=== PATIENT | female | born 1995 | race African-American/Black ===

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

== ENCOUNTER 2017-05-19 13:24 | Inpatient (IN) | payer SELFPAY ==
[2017-05-19] MEDS ORDERED: INSULIN REG, HUMAN 100 UNIT/ML 3 ML VIAL (PYX) IV ONE ×3 (14:56→17:39)
--- NOTE | 2017-05-19 15:04 | ER Document Report ---
ED Medical Screen (RME) - General Chief Complaint: High Blood Sugar Stated Complaint: HIGH BLOOD SUGAR TRAVEL OUTSIDE OF THE [place] IN LAST 30 DAYS: No - HPI Notes: 05/19/17 15:07 22-year-old female with a history of type 1 diabetes and DKA presents today via EMS for elevated blood sugar that started approximately 2 days ago. Significant other reports that she has been vomiting, diarrhea, urinating excessively over the last 3 days. Reports fevers and chills. Significant other states that she has not eaten today. Reports recent cough. Patient is unsure if she is . Patient is unable to fully answer questions due to increased lethargy. Denies any chest pain but reports shortness of breath, abdominal pain. Patient has not been seen by her PCP. Patient states that she has been taking her insulin as directed. I have greeted and performed a rapid initial assessment of this patient. A comprehensive ED assessment and evaluation of the patient, analysis of test results and completion of medical decision making process will be conducted by an additional ED providers. 05/19/17 15:10 05/20/17 12:14 - Related Data Allergies/Adverse Reactions: No Known Allergies Allergy (Verified 05/19/17 13:25) Home Medications: Current Home Medications Insulin Glargine,Hum.rec.anlog [Lantus Solostar] 20 unit SQ QHS 05/19/17 [ History] Insulin Lispro [Humalog Kwikpen] 20 unit SQ MEALS 05/19/17 [History] Oxcarbazepine [Trileptal] 300 mg PO DAILY 05/19/17 [History] Past Medical History - Social History Chew tobacco use (# tins/day): No Frequency of alcohol use: None Drug Abuse: None Family history: Reviewed & Not Pertinent Endocrine Medical History: Reports: Hx Diabetes Mellitus Type 1 Renal/ Medical History: Denies: Hx Peritoneal Dialysis Psychiatric Medical History: Reports: Hx Bipolar Disorder, Hx Depression - Immunizations Hx Diphtheria, Pertussis, Tetanus Vaccination: No Physical Exam - Vital signs Vitals: Temp Pulse Resp BP Pulse Ox 98.4 F 133 H 20 126/97 H 99 05/19/17 13:50 05/19/17 13:50 05/19/17 13:50 05/19/17 13:50 05/19/17 13:50 Course - Vital Signs Vital signs: Temp Pulse Resp BP Pulse Ox 98.0 F 101 H 16 104/62 100 05/20/17 07:52 05/20/17 07:52 05/20/17 07:52 05/20/17 07:52 05/20/17 07:52 - Laboratory Result Diagrams: 05/20/17 04:20 05/20/17 09:33 Laboratory results interpreted by me: 05/19/17 05/19/17 05/19/17 15:41 16:00 16:30 WBC MCV MCHC RDW Plt Count Band Neutrophils % Abs Neuts (Manual) Abs Lymphs (Manual) Abs Monocytes (Manual) VBG pH 6.90 L* VBG pCO2 16.9 L* VBG HCO3 3.3 L Potassium Carbon Dioxide Glucose POC Glucose > 550 H* Phosphorus AST ALT Alkaline Phosphatase Urine Protein 30 H Urine Glucose (UA) >=500 H Urine Ketones 80 H Urine Blood LARGE H 05/19/17 05/19/17 05/19/17 16:54 16:57 16:57 WBC 25.1 H MCV 101 H MCHC 30.1 L RDW 16.4 H Plt Count 484 H Band Neutrophils % 2 L Abs Neuts (Manual) 15.3 H Abs Lymphs (Manual) 7.0 H Abs Monocytes (Manual) 2.5 H VBG pH VBG pCO2 VBG HCO3 Potassium 5.9 H Carbon Dioxide < 5 L* Glucose 688 H* POC Glucose > 550 H* Phosphorus 8.4 H AST 133 H ALT 130 H Alkaline Phosphatase 370 H Urine Protein Urine Glucose (UA) Urine Ketones Urine Blood 05/19/17 18:25 WBC MCV MCHC RDW Plt Count Band Neutrophils % Abs Neuts (Manual) Abs Lymphs (Manual) Abs Monocytes (Manual) VBG pH VBG pCO2 VBG HCO3 Potassium Carbon Dioxide Glucose POC Glucose 532 H* Phosphorus AST ALT Alkaline Phosphatase Urine Protein Urine Glucose (UA) Urine Ketones Urine Blood Doctor's Discharge - Discharge Clinical Impression: Ketoacidosis due to diabetes Condition: Serious Disposition: ADMITTED INPATIENT
--- NOTE | 2017-05-19 15:49 | RADIOLOGY REPORT (SQ) ---
EXAM DESCRIPTION: CHEST SINGLE VIEW COMPLETED DATE/TIME: 05/19/2017 3:40 pm REASON FOR STUDY: dka COMPARISON: 12/01/2016 EXAM PARAMETERS: NUMBER OF VIEWS: One view. TECHNIQUE: Single frontal radiographic view of the chest acquired. RADIATION DOSE: NA LIMITATIONS: None. FINDINGS: LUNGS AND PLEURA: No opacities, masses or pneumothorax. No pleural effusion. MEDIASTINUM AND HILAR STRUCTURES: No masses. Contour normal. HEART AND VASCULAR STRUCTURES: Heart normal in size. Normal vasculature. BONES: No acute findings. HARDWARE: None in the chest. OTHER: No other significant finding. IMPRESSION: NO ACUTE RADIOGRAPHIC FINDING IN THE CHEST. TECHNICAL DOCUMENTATION: JOB ID: [id number] 2012 [employer]- All Rights Reserved
[2017-05-19] MEDS ORDERED: INSULIN REG, HUMAN 100 UNIT/ML 3 ML VIAL (PYX) SUBCUT ONE (16:42)
--- NOTE | 2017-05-19 16:42 | ER Document Report ---
ED General - General Chief Complaint: High Blood Sugar Stated Complaint: HIGH BLOOD SUGAR Time Seen by Provider: 05/19/17 15:28 Mode of Arrival: Carried Information source: Relative Notes: Patient with known history of type 1 diabetes. Has been having excessive thirst and excessive urination. Ketones on her breath. Now today becoming more lethargic with difficulty breathing. Trying to get . Denies any recent infections. Denies any chest pain. Patient having difficulty answering questions so most history is obtained by significant other. TRAVEL OUTSIDE OF THE [place] IN LAST 30 DAYS: No - HPI Onset: Just prior to arrival Severity: Severe Associated symptoms: Nausea, Vomiting Exacerbated by: Denies - Related Data Allergies/Adverse Reactions: No Known Allergies Allergy (Verified 05/19/17 13:25) Home Medications: Current Home Medications Insulin Lispro [Humalog Kwikpen] 20 unit SQ MEALS 05/19/17 [History] Oxcarbazepine [Trileptal] 300 mg PO Q12 05/19/17 [History] Past Medical History - General Information source: Relative - Social History Smoking Status: Never Smoker Chew tobacco use (# tins/day): No Frequency of alcohol use: None Drug Abuse: None Lives with: Spouse/Significant other Family History: CVA, DM - Mother, Hypertension Patient has suicidal ideation: No Patient has homicidal ideation: No - Past Medical History Cardiac Medical History: Reports: None Pulmonary Medical History: Reports: None EENT Medical History: Reports: None Neurological Medical History: Reports: None Endocrine Medical History: Reports: Hx Diabetes Mellitus Type 1 Renal/ Medical History: Reports: None. Denies: Hx Peritoneal Dialysis Malignancy Medical History: Reports: None GI Medical History: Reports: Other - History of gastroparesis Musculoskeltal Medical History: Reports None Skin Medical History: Reports None Psychiatric Medical History: Reports: Hx Bipolar Disorder, Hx Depression - Immunizations Hx Diphtheria, Pertussis, Tetanus Vaccination: No Review of Systems - Review of Systems -: Yes ROS unobtainable due to patient's medical condition Physical Exam - Vital signs Vitals: Temp Pulse Resp BP Pulse Ox 98.4 F 133 H 20 126/97 H 99 05/19/17 13:50 05/19/17 13:50 05/19/17 13:50 05/19/17 13:50 05/19/17 13:50 Interpretation: Tachycardic, Tachypneic - General General appearance: Other - Ill-appearing In distress: Severe - HEENT Head: Normocephalic, Atraumatic Eyes: Normal Pupils: PERRL Mucous membranes: Dry - Respiratory Respiratory status: Respiratory distress, Tachypnea Chest status: Nontender Breath sounds: Normal Chest palpation: Normal - Cardiovascular Rhythm: Tachycardia Heart sounds: Normal auscultation Murmur: No - Abdominal Inspection: Normal Distension: No distension Bowel sounds: Normal Tenderness: Nontender Organomegaly: No organomegaly - Back Back: Normal, Nontender - Extremities General upper extremity: Normal inspection, Nontender, Normal color, Normal ROM , Normal temperature General lower extremity: Normal inspection, Nontender, Normal color, Normal ROM , Normal temperature, Normal weight bearing. No: Hazel's sign - Neurological Neuro grossly intact: Yes Cognition: Normal Orientation: AAOx4 [place] Coma Scale Eye Opening: Spontaneous [place] Coma Scale Verbal: Oriented [place] Coma Scale Motor: Obeys Commands [place] Coma Scale Total: 15 Speech: Normal Motor strength normal: LUE, RUE, LLE, RLE Sensory: Normal - Psychological Associated symptoms: Normal affect, Normal mood - Skin Skin Temperature: Warm Skin Moisture: Dry Skin Color: Normal Course - Re-evaluation Re-evalutation: 05/19/17 17:03 This is a very ill-appearing young female with DKA. Will begin immediate fluids , insulin, electrolyte replacement. Anticipate patient will need ICU admission. 05/19/17 17:42 Patient is a young female patient in DKA. Blood sugar over 500. Tachycardic. Getting fluids. Will start on insulin drip. Called hospitalist for admission. Hospitalist was notified at 1740. States that he will be unable to admit the patient until 1900 hrs. 05/19/17 19:00 Given to the hospitalist at 1840. Will admit to ICU at this time - Vital Signs Vital signs: Temp Pulse Resp BP Pulse Ox 98.4 F 133 H 20 126/97 H 99 05/19/17 13:50 05/19/17 13:50 05/19/17 13:50 05/19/17 13:50 05/19/17 13:50 - Laboratory Result Diagrams: 05/19/17 16:57 05/19/17 16:57 Laboratory results interpreted by me: 05/19/17 05/19/17 05/19/17 15:41 16:00 16:30 WBC MCV MCHC RDW Plt Count Band Neutrophils % Abs Neuts (Manual) Abs Lymphs (Manual) Abs Monocytes (Manual) VBG pH 6.90 L* VBG pCO2 16.9 L* VBG HCO3 3.3 L Potassium Carbon Dioxide Glucose POC Glucose > 550 H* Phosphorus AST ALT Alkaline Phosphatase Urine Protein 30 H Urine Glucose (UA) >=500 H Urine Ketones 80 H Urine Blood LARGE H 05/19/17 05/19/17 05/19/17 16:54 16:57 16:57 WBC 25.1 H MCV 101 H MCHC 30.1 L RDW 16.4 H Plt Count 484 H Band Neutrophils % 2 L Abs Neuts (Manual) 15.3 H Abs Lymphs (Manual) 7.0 H Abs Monocytes (Manual) 2.5 H VBG pH VBG pCO2 VBG HCO3 Potassium 5.9 H Carbon Dioxide < 5 L* Glucose 688 H* POC Glucose > 550 H* Phosphorus 8.4 H AST 133 H ALT 130 H Alkaline Phosphatase 370 H Urine Protein Urine Glucose (UA) Urine Ketones Urine Blood 05/19/17 18:25 WBC MCV MCHC RDW Plt Count Band Neutrophils % Abs Neuts (Manual) Abs Lymphs (Manual) Abs Monocytes (Manual) VBG pH VBG pCO2 VBG HCO3 Potassium Carbon Dioxide Glucose POC Glucose 532 H* Phosphorus AST ALT Alkaline Phosphatase Urine Protein Urine Glucose (UA) Urine Ketones Urine Blood - EKG Interpretation by Md EKG shows normal: [place], Intervals, QRS Complexes, ST-T Waves Rate: Tachycardia Critical Care Note - Critical Care Note Total time excluding time spent on procedures (mins): 60 Comments: Endocrinological emergency, electrolyte abnormalities, acidosis, DKA Discharge - Discharge Clinical Impression: Ketoacidosis due to diabetes Qualifiers: Diabetes mellitus type: type 1 Diabetes mellitus complication detail: without coma Qualified Code(s): E10.10 - Type 1 diabetes mellitus with ketoacidosis without coma Condition: Serious Disposition: ADMITTED INPATIENT Admitting Provider: Hospitalist - [place] Unit Admitted: [facility] Referrals: MARITZA KUHN MD [Primary Care Provider] - Follow up as needed
[2017-05-19 16:53] LABS: APPEARANCE,URINE SLIGHTLY-CLOUDY; BILIRUBIN,URINE NEGATIVE (NEGATIVE); COLOR,URINE YELLOW; GLUCOSE, URINE >=500 mg/dL (NEGATIVE); KETONES,URINE 80 mg/dL (NEGATIVE); LEUKOCYTE ESTERASE,URINE NEGATIVE (NEGATIVE); NITRITE,URINE NEGATIVE (NEGATIVE); PROTEIN,URINE 30 mg/dL (NEGATIVE); URINE SPECIFIC GRAVITY 1.022; UROBILINOGEN,URINE NEGATIVE mg/dL (<2.0)
[2017-05-19 17:04] LABS: URINE AMPHETAMINES SCREEN NEGATIVE; URINE BARBITURATES SCREEN NEGATIVE; URINE BENZODIAZEPINES SCREEN NEGATIVE; URINE COCAINE SCREEN NEGATIVE; URINE MARIJUANA (THC) SCREEN NEGATIVE; URINE METHADONE SCREEN NEGATIVE; URINE PHENCYCLIDINE SCREEN NEGATIVE
[2017-05-19] MEDS: NORMAL SALINE 1000 ML 1,000 ML IV PRN ×4 (17:10→18:33)
[2017-05-19 17:19] LABS: HEMATOCRIT 43.4 % (36.0-47.0); MEAN CORPUSCULAR HEMOGLOBIN 30.4 pg (27.0-33.4); MEAN CORPUSCULAR HGB CONC 30.1 g/dL (32.0-36.0); MEAN CORPUSCULAR VOLUME 101 fl (80-97); PLATELET COUNT 484 10^3/uL (150-450); RED BLOOD COUNT 4.29 10^6/uL (3.72-5.28); RED CELL DISTRIBUTION WIDTH 16.4 % (11.5-14.0); WHITE BLOOD COUNT 25.1 10^3/uL (4.0-10.5)
[2017-05-19 17:38] LABS: ALANINE AMINOTRANSFERASE 130 U/L (9-52); ALBUMIN 4.3 g/dL (3.5-5.0); ALKALINE PHOSPHATASE 370 U/L (38-126); ASPARTATE AMINO TRANSFERASE 133 U/L (14-36); BILIRUBIN,DIRECT 0.3 mg/dL (0.0-0.4); BILIRUBIN,TOTAL 0.3 mg/dL (0.2-1.3); BLOOD UREA NITROGEN 17 mg/dL (7-20); CALCIUM 9.9 mg/dL (8.4-10.2); CHLORIDE 100 mmol/L (98-107); CREATINE KINASE 42 U/L (30-135); MAGNESIUM 2.1 mg/dL (1.6-2.3); PHOSPHORUS 8.4 mg/dL (2.5-4.5); SODIUM 139.8 mmol/L (137-145)
[2017-05-19 17:42] LABS: ABSOLUTE MONOCYTES # (MANUAL) 2.5 10^3/uL (0.1-1.4); ABSOLUTE NEUTROPHILS# (MANUAL) 15.3 10^3/uL (1.7-8.2); BAND NEUTROPHILS % (MANUAL) 2 % (3-5); BASOPHILS % (MANUAL) 0 % (0-2); EOSINOPHILS % (MANUAL) 1 % (0-6); LYMPHOCYTES % (MANUAL) 28 % (13-45); MONOCYTES % (MANUAL) 10 % (3-13); SEGMENTED NEUTROPHILS % (MAN) 59 % (42-78); TOTAL CELLS COUNTED 100
[2017-05-19 17:46] LABS: ANISOCYTOSIS 1+; PLATELET COMMENT INCREASED; POIKILOCYTOSIS SLIGHT; TOXIC GRANULATION SLIGHT
[2017-05-19 18:12] LABS: POTASSIUM 5.9 mmol/L (3.6-5.0)
[2017-05-19 18:15] LABS: CARBON DIOXIDE < 5 mmol/L (22-30); GLUCOSE 688 mg/dL (75-110)
[2017-05-19] MEDS ORDERED: NORMAL SALINE 1,000 ML IV ONE (18:37)
[2017-05-19 18:43] LABS: VENOUS BLOOD BASE EXCESS -28.5 mmol/L; VENOUS BLOOD HCO3 3.3 mmol/L (20-32)
[2017-05-19 18:47] LABS: VENOUS BLOOD PH 6.9 (7.30-7.42)
[2017-05-19 18:48] LABS: VENOUS BLOOD PCO2 16.9 mmHg (35-63)
--- NOTE | 2017-05-19 18:52 | EKG REPORT ---
SEVERITY:- ABNORMAL ECG - SINUS TACHYCARDIA SMITH, CONSIDER BIATRIAL ABNORMALITIES : Confirmed by: Lucio Dalton MD 19-May-2017 18:51:12
[2017-05-19] MEDS ORDERED: ONDANSETRON HCL INJ/PF 4 MG/2 ML SDV IV PRN (19:28)
[2017-05-19] MEDS ORDERED: NORMAL SALINE 1000 ML 1,000 ML IV PRN (19:28)
[2017-05-19] MEDS ORDERED: ACETAMINOPHEN 325 MG TABLET PO PRN (19:28)
[2017-05-19] MEDS ORDERED: NORMAL SALINE 100 ML with INSULIN REGULAR, HUMAN 100 UNIT IV PRN ×2 (19:34)
[2017-05-19] MEDS ORDERED: DEXTROSE 40% GEL 15 GM TUBE PO PRN ×2 (19:34)
[2017-05-19] MEDS ORDERED: DEXTROSE 50%-WATER 25 GM/50 ML DISP.SYRIN IV PRN ×2 (19:34)
[2017-05-19] MEDS ORDERED: GLUCAGON,HUMAN RECOMB 1 MG INJ IM PRN (19:34)
[2017-05-19] MEDS ORDERED: MEDROXYPROGESTERONE ACET INJ 150 MG/1 ML VIAL IM ONE (20:15)
[2017-05-19] MEDS ORDERED: NORMAL SALINE 1000 ML 2,000 ML IV ONE (20:15)
[2017-05-19] MEDS ORDERED: FLUCONAZOLE 100 MG TABLET PO ONE (20:17)
[2017-05-19 21:46] LABS: BLOOD UREA NITROGEN 14 mg/dL (7-20); CALCIUM 8.5 mg/dL (8.4-10.2); CHLORIDE 112 mmol/L (98-107); GLUCOSE 308 mg/dL (75-110)
[2017-05-19] MEDS ORDERED: (PENDING PHARMACY ID) (Oxcarbazepine [Trileptal] 300 MG) PO SCH (22:00)
[2017-05-19 22:08] LABS: CARBON DIOXIDE < 5 mmol/L (22-30)
[2017-05-19] MEDS: POTASSI CL 20 MEQ/D5-1/2NS 1L 1,000 ML IV PRN (23:48)
[2017-05-20 01:40] LABS: BLOOD UREA NITROGEN 11 mg/dL (7-20); CALCIUM 8.2 mg/dL (8.4-10.2); CHLORIDE 112 mmol/L (98-107); GLUCOSE 152 mg/dL (75-110); POTASSIUM 4.4 mmol/L (3.6-5.0)
[2017-05-20 01:55] LABS: SODIUM 143.5 mmol/L (137-145)
[2017-05-20 01:58] LABS: ANION GAP 22 (5-19); CARBON DIOXIDE 10 mmol/L (22-30)
[2017-05-20] MEDS: OXCARBAZEPINE 150 MG TABLET PO SCH ×3 (02:47→22:19)
[2017-05-20] MEDS: METOCLOPRAMIDE HCL INJ/PF 10 MG/2 ML SDV IV SCH ×3 (02:49→14:00)
[2017-05-20] MEDS: FAMOTIDINE INJ/PF 20 MG/2 ML SDV IV SCH ×2 (02:50→09:36)
--- NOTE | 2017-05-20 03:20 | RADIOLOGY REPORT (SQ) ---
EXAM DESCRIPTION: U/S ABDOMEN LIMITED W/O DOP CLINICAL HISTORY: elevated lft COMPARISON: 07/14/2016 TECHNIQUE: Real-time sonographic images of the right upper abdomen were obtained using a curved multihertz transducer. FINDINGS: The visualized portions of the pancreas are unremarkable. The visualized portions of the aorta and IVC are unremarkable. Hepatomegaly with diffusely increased echogenicity. The common bile duct measures 0.3 cm. Hepatopedal flow in the portal vein. The gallbladder has a normal appearance. No gallstones identified. No wall thickening or pericholecystic fluid. The right kidney measures 14.3 cm in length. No hydronephrosis, solid renal mass, or shadowing calculi. IMPRESSION: 1. No gallstones. 2. Hepatomegaly with hepatic steatosis.
--- NOTE | 2017-05-20 03:53 | PDOC H&P ---
History of Present Illness Admission Date/PCP: 05/19/17 19:31 NO PCP History of Present Illness: DAVID FARIAS is a 22 year old female type I diabetic with a past medical history of gastroparesis and anxiety who presents to the emergency department with complaints of high blood sugar, nausea, vomiting, and abdominal pain. Patient reports that she has been out of her Lantus for several weeks now and has been taking 20 units of short-acting insulin prior to meals. Patient for the last 2 days has had nausea vomiting and some diarrhea. She reports her stool has been dark but denies overt melena, hematochezia. She is referred to hospital service for DKA. Past Medical History Cardiac Medical History: Reports: None Pulmonary Medical History: Reports: None EENT Medical History: Reports: None Neurological Medical History: Reports: None Endocrine Medical History: Reports: Diabetes Mellitus Type 1 Renal/ Medical History: Reports: None Malignancy Medical History: Reports: None GI Medical History: Reports: Other - History of gastroparesis Musculoskeltal Medical History: Reports: None Skin Medical History: Reports: None Psychiatric Medical History: Reports: Bipolar Disorder, Depression Past Surgical History Past Surgical History: Reports: None Social History Lives with: Spouse/Significant other Smoking Status: Never Smoker Frequency of Alcohol Use: None Hx Recreational Drug Use: No Drugs: None Hx Prescription Drug Abuse: No - Advance Directive Resuscitation Status: Full Code Surrogate healthcare decision maker:: Been more, dad Family History Family History: CVA, DM - Mother, Hypertension Parental Family History Reviewed: Yes Children Family History Reviewed: NA Sibling(s) Family History Reviewed.: Yes Medication/Allergy Home Medications: Insulin Glargine,Hum.rec.anlog [Lantus Solostar] 20 unit SQ QHS 05/19/17 Insulin Lispro [Humalog Kwikpen] 20 unit SQ MEALS 05/19/17 Oxcarbazepine [Trileptal] 300 mg PO DAILY 05/19/17 Allergies/Adverse Reactions: No Known Allergies Allergy (Verified 05/19/17 13:25) Review of Systems Constitutional: PRESENT: anorexia. ABSENT: chills, fever(s), headache(s), weight gain, weight loss Eyes: ABSENT: visual disturbances Ears: ABSENT: hearing changes Cardiovascular: ABSENT: chest pain, dyspnea on exertion, edema, orthropnea, palpitations Respiratory: ABSENT: cough, hemoptysis Gastrointestinal: PRESENT: diarrhea, melena, nausea, vomiting. ABSENT: abdominal pain, constipation, hematemesis, hematochezia Genitourinary: PRESENT: other - puritic vaginal discharge.. ABSENT: dysuria, hematuria Musculoskeletal: ABSENT: joint swelling Integumentary: ABSENT: rash, wounds Neurological: ABSENT: abnormal gait, abnormal speech, confusion, dizziness, focal weakness, syncope Psychiatric: ABSENT: anxiety, depression, homidical ideation, suicidal ideation Endocrine: ABSENT: cold intolerance, heat intolerance, polydipsia, polyuria Hematologic/Lymphatic: ABSENT: easy bleeding, easy bruising Physical Exam Vital Signs: Temp Pulse Resp BP Pulse Ox 98.4 F 133 H 20 126/97 H 99 05/19/17 13:50 05/19/17 13:50 05/19/17 13:50 05/19/17 13:50 05/19/17 13:50 General appearance: PRESENT: severe distress, well-developed, well-nourished, other - Tachypnea Head exam: PRESENT: atraumatic, normocephalic Eye exam: PRESENT: conjunctiva pink, EOMI, PERRLA. ABSENT: scleral icterus Ear exam: PRESENT: normal external ear exam Mouth exam: PRESENT: dry mucosa, tongue midline Neck exam: ABSENT: JVD, lymphadenopathy, thyromegaly, tracheal deviation Respiratory exam: PRESENT: accessory muscle use, clear to auscultation yajaira, symmetrical, tachypnea, unlabored. ABSENT: rales, rhonchi, wheezes Cardiovascular exam: PRESENT: RRR, +S1, +S2, tachycardia. ABSENT: diastolic murmur, rubs, systolic murmur Pulses: PRESENT: normal dorsalis pedis pul Vascular exam: PRESENT: normal capillary refill GI/Abdominal exam: PRESENT: normal bowel sounds, soft. ABSENT: distended, firm , guarding, mass, organolmegaly, rebound, rigid, tenderness Rectal exam: PRESENT: deferred Extremities exam: PRESENT: full ROM. ABSENT: calf tenderness, clubbing, pedal edema Neurological exam: PRESENT: alert, awake, oriented to person, oriented to place , oriented to time, oriented to situation, CN II-XII grossly intact. ABSENT: motor sensory deficit Psychiatric exam: PRESENT: appropriate affect, normal mood. ABSENT: homicidal ideation, suicidal ideation Skin exam: PRESENT: dry, intact, warm. ABSENT: cyanosis, rash Results Laboratory Results: 05/19/17 05/19/17 05/19/17 16:00 16:30 16:57 WBC 25.1 H Plt Count 484 H VBG pH 6.90 L* Sodium Potassium Chloride Carbon Dioxide Anion Gap BUN Creatinine Glucose Calcium Urine Glucose (UA) >=500 H Urine Ketones 80 H Urine Blood LARGE H 05/20/17 01:09 WBC Plt Count VBG pH Sodium 143.5 Potassium 4.4 Chloride 112 H Carbon Dioxide 10 L* Anion Gap 22 H BUN 11 Creatinine 0.56 Glucose 152 H Calcium 8.2 L Urine Glucose (UA) Urine Ketones Urine Blood Impressions: Chest X-Ray 05/19/17 14:55 IMPRESSION: NO ACUTE RADIOGRAPHIC FINDING IN THE CHEST. Assessment & Plan - Diagnosis (1) DKA (diabetic ketoacidoses) Qualifiers: Diabetes mellitus type: type 1 Diabetes mellitus complication detail: without coma Qualified Code(s): E10.10 - Type 1 diabetes mellitus with ketoacidosis without coma Is this a current diagnosis for this admission?: Yes Plan: Give patient total of 5 L normal saline bolus Then run normal saline with insulin drip at 0.1 U/kg/h Once blood sugar is below 250, transition to D5 half-normal with 20 meq of potassium chloride secondary to not using long-acting insulin Patient has been advised about the dangers of uncontrolled diabetes mellitus including kidney disease, neurologic impairment, early heart disease, loss of limb, neuropathy blindness., (2) Elevated LFTs Is this a current diagnosis for this admission?: Yes Plan: Check hepatitis panel and right upper quadrant ultrasound (3) Family planning Is this a current diagnosis for this admission?: Yes Plan: Patient is sexually active and not using contraception. She reports last menstrual period was sometime in April. Her hCG is negative. Patient has been offered Depo-Provera as a bridge until she can reestablish with a new primary care provider. Patient is advised to use barrier method of contraception. Patient is advised of the risk of conception with uncontrolled diabetes mellitus including malformation and demise and maternal risk. (4) Gastroparesis Is this a current diagnosis for this admission?: Yes Plan: Reglan every 6 (5) Melena Is this a current diagnosis for this admission?: Yes Plan: Check occult blood - Time Time Spent: 30 to 50 Minutes Medications reviewed and adjusted accordingly: Yes Anticipated discharge: Home Within: Other - upon improvement of symptomatology - Inpatient Certification Based on my medical assessment, after consideration of the patient's comorbidities, presenting symptoms, or acuity I expect that the services needed warrant INPATIENT care.: Yes I certify that my determination is in accordance with my understanding of Medicare's requirements for reasonable and necessary INPATIENT services [42 CFR 412.3e].: Yes Medical Necessity: Need For IV Fluids, Need For Continuous Telemetry Monitoring Post Hospital Care: D/C Speaking Unit Assembler Documentation
[2017-05-20] MEDS: POTASSI CL 20 MEQ/D5-1/2NS 1L 1,000 ML IV PRN ×2 (05:10→14:52)
[2017-05-20 05:47] LABS: HEMATOCRIT 33.9 % (36.0-47.0); HEMOGLOBIN 11.3 g/dL (12.0-15.5); MEAN CORPUSCULAR HGB CONC 33.2 g/dL (32.0-36.0); PLATELET COUNT 336 10^3/uL (150-450); RED BLOOD COUNT 3.76 10^6/uL (3.72-5.28); RED CELL DISTRIBUTION WIDTH 14.8 % (11.5-14.0); WHITE BLOOD COUNT 14.2 10^3/uL (4.0-10.5)
[2017-05-20 05:52] LABS: MEAN CORPUSCULAR VOLUME 90 fl (80-97)
[2017-05-20 06:06] LABS: ANION GAP 14 (5-19); BLOOD UREA NITROGEN 9 mg/dL (7-20); CARBON DIOXIDE 14 mmol/L (22-30); CHLORIDE 111 mmol/L (98-107); GLUCOSE 96 mg/dL (75-110); POTASSIUM 3.9 mmol/L (3.6-5.0); SODIUM 139.3 mmol/L (137-145)
[2017-05-20 06:13] LABS: ABSOLUTE LYMPHOCYTES# (MANUAL) 2.6 10^3/uL (0.5-4.7); ABSOLUTE MONOCYTES # (MANUAL) 1.4 10^3/uL (0.1-1.4); ABSOLUTE NEUTROPHILS# (MANUAL) 9.9 10^3/uL (1.7-8.2); BAND NEUTROPHILS % (MANUAL) 3 % (3-5); BASOPHILS % (MANUAL) 0 % (0-2); EOSINOPHILS % (MANUAL) 2 % (0-6); LYMPHOCYTES % (MANUAL) 18 % (13-45); MONOCYTES % (MANUAL) 10 % (3-13); SEGMENTED NEUTROPHILS % (MAN) 67 % (42-78); TOTAL CELLS COUNTED 100
[2017-05-20 06:14] LABS: ANISOCYTOSIS 1+; PLATELET COMMENT ADEQUATE; TOXIC GRANULATION 1+; TOXIC VACUOLATION PRESENT
[2017-05-20 07:10] LABS: CHLAM PCR DETECTED (NOT DETECT); GON PCR NOT DETECTED (NOT DETECT)
--- NOTE | 2017-05-20 08:13 | XCELERA REPORT ---
[address] [address] Lower Extremity Venous Evaluation Name: DAVID FARIAS Age: 22 yrs Gender: Female : 1995 Patient Status: Emergency Patient Location: ER Study Date: 05/19/2017 05:01 PM Procedure: Color flow and duplex imaging of the veins of the left lower extremity as well as the right Common Femoral vein. Reason For Study: pain left leg / Hx clots Ordering Physician: LUZ LUCIANO Performed By: Gogo Meng Right Sided Venous Evaluation The right common femoral vein is fully compressible. Spontaneous and phasic flow is present in the right common femoral vein. Left Sided Venous Evaluation Normal vessel filling wall to wall, compression and augmentation as well as Colour flow down to the infrageniculate veins. Interpretation Summary : LUZ LUCIANO [place]
[2017-05-20] MEDS: ENOXAPARIN SODIUM INJ 40 MG/0.4 ML DISP.SYRIN SUBCUT SCH (09:48)
[2017-05-20 10:39] LABS: ANION GAP 11 (5-19); BLOOD UREA NITROGEN 7 mg/dL (7-20); CALCIUM 7.7 mg/dL (8.4-10.2); CARBON DIOXIDE 17 mmol/L (22-30); CHLORIDE 111 mmol/L (98-107); GLUCOSE 128 mg/dL (75-110); POTASSIUM 3.9 mmol/L (3.6-5.0); SODIUM 138.5 mmol/L (137-145)
[2017-05-20 14:40] LABS: ANION GAP 14 (5-19); BLOOD UREA NITROGEN 6 mg/dL (7-20); CARBON DIOXIDE 16 mmol/L (22-30); CHLORIDE 110 mmol/L (98-107); GLUCOSE 116 mg/dL (75-110); SODIUM 139.7 mmol/L (137-145)
[2017-05-20] MEDS ORDERED: INSULIN GLARGINE,HUM.REC.ANLOG 1,000 UNIT/10 ML UNIT SUBCUT ONE (15:30)
[2017-05-20] MEDS ORDERED: LIDOCAINE 1% INJ-PF (10 MG/ML) 30 ML SDV INJ ONE (15:42)
--- NOTE | 2017-05-20 16:13 | PROGRESS NOTE E ---
Progress Note NAME: DAVID FARIAS : 1995 AGE: 22Y DATE: 05/20/2017 ROOM: 318 SUBJECTIVE: The patient is currently lying in bed. She states that she feels better today. She denies any nausea, vomiting, diarrhea. No shortness of breath, dizziness, or chest pain. No fevers, chills. The patient has been afebrile. Blood pressure has been in a good range. The patient's GAP was closed and the patient does not voice any other concerns at this time. REVIEW OF SYSTEMS: Rest of review of systems is negative. MEDICATIONS: Medications have been reviewed. OBJECTIVE: GENERAL: The patient is a thin 22-year-old -[place] female who is awake, alert. She is oriented to person, place, time, and situation. She is verbal, conversational, does not appear to be in any acute distress. VITAL SIGNS: Temperature is 98.7, pulse 104, respirations 19, blood pressure is 109/65, oxygen saturation 99% on room air. SKIN: Warm and dry. No rash. She is not diaphoretic. HEENT: Pupils equal, round, and reactive to light and accommodation. Conjunctiva is pink. There is no evidence of JVP. CARDIOVASCULAR SYSTEM: Heart is regular. There is no murmur or rub. CHEST: Clear, symmetrical, unlabored. ABDOMEN: Soft, nontender, nondistended. BACK: No CVA tenderness or sacral edema. EXTREMITIES: No clubbing, cyanosis, edema. PSYCHIATRIC: Appropriate affect. Pleasant mood. DIAGNOSTICS: Lab values are as follows: Hematology obtained on 05/20/2017: WBCs are 14.2, hemoglobin is 11.3, hematocrit is 33.9, platelet count is 336,000. Chemistry obtained on 05/20/2017: Sodium is 139, potassium 4.0, chloride is 110, carbon dioxide 16, BUN 6, creatinine is 0.51, glucose 116, calcium is 8.0. IMPRESSION AND PLAN: 1. DIABETIC KETOACIDOSIS. The patient's symptoms overall have improved. Will start the patient on a basal dose of insulin, stop the drip, and continue IV fluids. Will advance the patient's diet and follow. 2. CHLAMYDIA. Will give the patient a dose of Rocephin, azithromycin, and follow. 3. ELEVATED LFTS. THE PATIENT APPEARS TO HAVE FATTY LIVER. Will start the patient on vitamin D. 4. GASTROPARESIS. The patient is asymptomatic at this time. DISPOSITION: The patient is a FULL CODE. Pending patient's symptomatology and diagnostic findings, will re-evaluate in the a.m. Time spent on this followup including assessment, plan, physical examination, patient education, review of records is 25 minutes. DICTATING PHYSICIAN: MILADIS ENRIQUEZ NP [id number] PHY#: [id number] ID: [id number] JOB#: [id number] ACCT: [id number] cc: >
[2017-05-20] MEDS ORDERED: AZITHROMYCIN 1 GM SUSP PACKET PO ONE (16:15)
[2017-05-20] MEDS ORDERED: LIDOCAINE HCL 1% INJ (FOR 250 MG VIAL) INJ ONE (16:30)
[2017-05-20] MEDS ORDERED: CEFTRIAXONE INJ 250 MG VIAL IM ONE (16:30)
[2017-05-20 16:36] LABS: ANION GAP 15 (5-19); BLOOD UREA NITROGEN 5 mg/dL (7-20); CALCIUM 8.2 mg/dL (8.4-10.2); CARBON DIOXIDE 15 mmol/L (22-30); CHLORIDE 110 mmol/L (98-107); GLUCOSE 147 mg/dL (75-110); POTASSIUM 3.6 mmol/L (3.6-5.0)
[2017-05-20] MEDS ORDERED: INSULIN LISPRO 20 UNIT SQ SCH (17:00)
[2017-05-20] MEDS: INSULIN LISPRO 100 UNIT/ML 3 ML VIAL SUBCUT PRN ×2 (17:48→20:34)
[2017-05-20] MEDS ORDERED: INFLUENZA ADLT QUAD (36MOS+) 2017-18 VAC 0.5 ML SYR IM PRN (20:10)
[2017-05-20 20:57] LABS: BLOOD UREA NITROGEN 7 mg/dL (7-20); CALCIUM 8.6 mg/dL (8.4-10.2); CARBON DIOXIDE 11 mmol/L (22-30); CHLORIDE 107 mmol/L (98-107); GLUCOSE 315 mg/dL (75-110)
[2017-05-20 22:35] LABS: ANION GAP 21 (5-19)
[2017-05-21 00:51] LABS: ANION GAP 12 (5-19); BLOOD UREA NITROGEN 8 mg/dL (7-20); CALCIUM 8.4 mg/dL (8.4-10.2); CARBON DIOXIDE 14 mmol/L (22-30); CHLORIDE 110 mmol/L (98-107); GLUCOSE 228 mg/dL (75-110); POTASSIUM 3.6 mmol/L (3.6-5.0)
[2017-05-21 05:01] LABS: ANION GAP 13 (5-19); BLOOD UREA NITROGEN 9 mg/dL (7-20); CALCIUM 8.7 mg/dL (8.4-10.2); CARBON DIOXIDE 17 mmol/L (22-30); CHLORIDE 109 mmol/L (98-107); GLUCOSE 243 mg/dL (75-110); POTASSIUM 3.6 mmol/L (3.6-5.0); SODIUM 139.2 mmol/L (137-145)
[2017-05-21 05:40] LABS: HEPATITIS A AB IGM Negative (Negative); HEPATITIS B CORE AB IGM Negative (Negative); HEPATITS B SURFACE ANTIGEN Negative (Negative)
[2017-05-21] MEDS: INSULIN LISPRO 100 UNIT/ML 3 ML VIAL SUBCUT PRN (08:05)
[2017-05-21] MEDS: OXCARBAZEPINE 150 MG TABLET PO SCH (09:06)
[2017-05-21] MEDS: ENOXAPARIN SODIUM INJ 40 MG/0.4 ML DISP.SYRIN SUBCUT SCH (09:24)
[2017-05-21 09:29] LABS: ANION GAP 15 (5-19); BLOOD UREA NITROGEN 8 mg/dL (7-20); CALCIUM 9.1 mg/dL (8.4-10.2); CARBON DIOXIDE 18 mmol/L (22-30); CHLORIDE 107 mmol/L (98-107); GLUCOSE 284 mg/dL (75-110); POTASSIUM 3.4 mmol/L (3.6-5.0); SODIUM 139.6 mmol/L (137-145)
[2017-05-21 10:15] VITALS: BP 104/56
--- NOTE | 2017-05-21 12:14 | DISCHARGE SUMMARY E ---
Discharge Summary NAME: DAVID FARIAS : 1995 AGE: 22Y ADMITTED: 05/19/2017 DISCHARGED: 05/21/2017 CODE STATUS: FULL CODE. PRIMARY CARE PROVIDER: Dr. Torre DISCHARGE DIAGNOSES: 1. Diabetic ketoacidosis. 2. Chlamydia. 3. Hepatic steatosis. 4. Gastroparesis. DISCHARGE MEDICATIONS: 1. Lantus 20 units subcutaneous at hour of sleep. 2. Humalog 10 units subcutaneous with meals. 3. Trileptal 300 mg p.o. daily. DIET: Diabetic. ACTIVITY: As tolerated. DIAGNOSTICS: Lab values are as follow: Hematology obtained on 05/20/2017: WBCs are 14.2, hemoglobin is 11.3, hematocrit is 33.9, platelet count is 366,000. Chemistry obtained on 05/21/2017: Sodium is 139, potassium 3.4, chloride is 107, carbon dioxide 18, BUN 8, creatinine is 0.49, glucose 284, calcium is 9.1. Serology obtained on 05/20/2017: Chlamydia is positive. Gonorrhea not detected. Hepatitis antibodies are still pending. Urinalysis obtained on 05/19/2017 reveals protein 30, glucose greater than 500, ketones 80, occult blood large. Chest x-ray obtained on 05/19/2017 reveals no acute radiographic finding of the chest. Venous Doppler obtained on 05/19/2017 is not remarkable. Abdominal ultrasound obtained on 05/20/2017 reveals no gallstones with hepatomegaly. EKG obtained on 05/19/2017 reveals sinus tachycardia. HISTORY OF PRESENT ILLNESS: The patient is a 22-year-old -[place] female with a past medical history of diabetes mellitus type 1 and multiple admission for DKA. The patient has a history of gastroparesis. The patient presented to the emergency department with chief complaint of high blood sugars, nausea, vomiting, and abdominal pain. The patient states she had been out of Lantus for a couple of weeks and had been taking 20 units of short acting insulin just prior to meals. The patient stated that for the past 48 hours she had nausea, vomiting, and some diarrhea. The patient also notes vaginal discharge and denies any overt melena or hematochezia. The patient was referred to the hospitalist for admission and management for DKA. HOSPITAL COURSE: The patient was admitted to [facility]. The patient was placed on an insulin drip and the patient's gap closed relatively quickly. The patient was transitioned over to her home dose of Lantus as well as sliding scale coverage with meals. The patient was supplemented fluids and overall did very well. The patient remained afebrile. Her blood pressure has been in acceptable range. The patient's symptoms overall completely resolved. The patient was positive for chlamydia for which she has been treated for in the past. The patient was co-treated with azithromycin and Rocephin. The patient's urine culture which was clean catch also revealed gram negative rods but feel this most likely was contaminate, however, the patient was given Rocephin. The patient's symptoms completely resolved and she is ready for discharge. DISCHARGE PLANNING: The patient is advised to followup with her primary care provider within 1 week for hospital followup. Time spent on this discharge including assessment, plan, physical examination, patient education, and review or records is 20 minutes. DICTATING PHYSICIAN: MILADIS ENRIQUEZ NP [id number] PHY#: [id number] ID: [id number] JOB#: [id number] ACCT: [id number] cc:STAR CONTRERAS M.D., MICHAEL NP >
[2017-05-21 16:12] LABS: HEPATITIS C VIRUS ANTIBODY <0.1 s/co ratio (0.0-0.9)
== END 2017-05-21 10:45 | disposition home or self-care (01) | DRG 639 ==
LOC: ER 13:24 → EH 19:31 → 3W 23:00
PROVIDERS: ADMIT Family Medicine; ATTEND Family Medicine
DX: E10.10 Type 1 diabetes mellitus with ketoacidosis without coma (principal); A74.9 Chlamydial infection, unspecified; K76.0 Fatty (change of) liver, not elsewhere classified; E10.43 Type 1 diabetes mellitus with diabetic autonomic (poly)neuropathy; K31.84 Gastroparesis; Z79.4 Long term (current) use of insulin; Z79.899 Other long term (current) drug therapy
CPT/HCPCS: 36415; 71045; 76705; 80048; 80053; 80074; 80307; 81001; 81025; 82550; 82803; 82962; 83690; 83735; 84100; 84484; 84702; 85025; 87086; 87088; 87186; 87491; 87591; 93005; 93010; 93971; 96360; 99291; J0696; J1815; J2765; J3480; J3490; J7030; Q0144; S0028

== ENCOUNTER 2017-09-06 15:10 | Emergency (ER) | payer MEDICAID ==
[2017-09-06] MEDS ORDERED: IBUPROFEN 600 MG TABLET PO ONE (15:52)
--- NOTE | 2017-09-06 15:54 | ER Document Report ---
ED Extremity Problem, Lower - General Chief Complaint: Leg Pain Stated Complaint: BILAT LEG PAIN Time Seen by Provider: 09/06/17 15:44 Notes: The patient is a 22-year-old female, past medical history type 1 diabetes, presents with bilateral man pain for the past week. In addition, she is having periodic cramps that will not respond to Tylenol. Her blood sugars have been running in the 200s. She denies neuropathy, injury, calf pain or swelling , dysuria, hematuria, nausea, vomiting or ankle pain. TRAVEL OUTSIDE OF THE [place] IN LAST 30 DAYS: No - Related Data Allergies/Adverse Reactions: No Known Allergies Allergy (Verified 09/06/17 15:11) Past Medical History - General Information source: Patient - Social History Smoking Status: Never Smoker Chew tobacco use (# tins/day): No Frequency of alcohol use: None Drug Abuse: None Family History: CVA, DM - Mother, Hypertension Patient has suicidal ideation: No Patient has homicidal ideation: No Endocrine Medical History: Reports: Hx Diabetes Mellitus Type 1 Renal/ Medical History: Denies: Hx Peritoneal Dialysis Psychiatric Medical History: Reports: Hx Bipolar Disorder, Hx Depression - Immunizations Hx Diphtheria, Pertussis, Tetanus Vaccination: No Review of Systems - Review of Systems Notes: REVIEW OF SYSTEMS: CONSTITUTIONAL: -fevers, -chills EENT: -eye pain, -difficulty swallowing, -nasal congestion CARDIOVASCULAR: -chest pain, -syncope. RESPIRATORY: -cough, -SOB GASTROINTESTINAL: +lower abdominal cramping, -nausea, -vomiting, -diarrhea GENITOURINARY: -dysuria, -hematuria MUSCULOSKELETAL: +B/L man pain, -back pain, -neck pain SKIN: -rash or skin lesions. HEMATOLOGIC: -easy bruising or bleeding. LYMPHATIC: -swollen, enlarged glands. NEUROLOGICAL: -altered mental status or loss of consciousness, -headache, - neurologic symptoms PSYCHIATRIC: -anxiety, -depression. ALL OTHER SYSTEMS REVIEWED AND NEGATIVE. Physical Exam - Vital signs Vitals: Temp Pulse Resp BP Pulse Ox 98.6 F 110 H 18 120/88 H 97 09/06/17 15:23 09/06/17 15:23 09/06/17 15:23 09/06/17 15:23 09/06/17 15:23 - Notes Notes: PHYSICAL EXAMINATION: GENERAL: Well-appearing, well-nourished and in no acute distress. HEAD: Atraumatic, normocephalic. EYES: Pupils equal round and reactive to light, extraocular movements intact, sclera anicteric, conjunctiva are normal. ENT: nares patent, oropharynx clear without exudates. Moist mucous membranes. NECK: Normal range of motion, supple without lymphadenopathy LUNGS: Breath sounds clear to auscultation bilaterally and equal. No wheezes rales or rhonchi. HEART: Mild tachycardia, regular rhythm. ABDOMEN: Soft, nontender, normoactive bowel sounds. No guarding, no rebound. No masses appreciated. EXTREMITIES: Tenderness over B/L shins, no calf tenderness or swelling, Normal range of motion, no pitting or edema. No cyanosis. NEUROLOGICAL: Cranial nerves grossly intact. Normal speech, normal gait. Normal sensory and motor exams. PSYCH: Normal mood, normal affect. SKIN: Warm, Dry, normal turgor, no rashes or lesions noted. Course - Re-evaluation Re-evalutation: Patient appears very well. After Motrin, her abdominal cramping improved and she is not . Pt with hyperglycemia, ketonuria and an anion gap of 19. She admits to not taking her NovoLog for a month after using her primary care physician. She is requesting a refill of her NovoLog. Sliding scale dose is 20 units Novolog and will provide her with IV fluids and 20 units of NovoLog. She appears very well and is having no nausea or vomiting to suggest DKA today. Repeat accucheck after 2L IVF and her sliding scale Novolog is 276. Refilled her NovoLog and test strips until she can see her new primary care physician. Instructed her about continuing anti-inflammatories for her metorrhagia and following up with her Director Of Field Coordination and PMD. - Vital Signs Vital signs: Temp Pulse Resp BP Pulse Ox 98.6 F 110 H 18 120/88 H 97 09/06/17 15:23 09/06/17 15:23 09/06/17 15:23 09/06/17 15:23 09/06/17 15:23 - Laboratory Result Diagrams: 09/06/17 14:02 Laboratory results interpreted by me: 09/06/17 09/06/17 14:02 14:02 Chloride 94 L Creatinine 0.49 L Glucose 493 H* AST 53 H Alkaline Phosphatase 153 H Urine Glucose (UA) >=500 H Urine Ketones 20 H Urine Blood LARGE H Discharge - Discharge Clinical Impression: Hyperglycemia due to type 1 diabetes mellitus, Abdominal cramping Condition: Stable Disposition: HOME, SELF-CARE Additional Instructions: HYPERGLYCEMIA (HIGH BLOOD SUGAR): You have an abnormally high blood sugar. Not all high blood sugar requires long-term treatment. High blood sugar can be due to medications, , or the stress of illness. (These cases are "borderline diabetes.") If the doctor feels your high blood sugar might resolve with time, you may not require treatment now. It's very important that you follow through, to see if the blood sugar returns to normal levels. Uncontrolled high blood sugar leads to early heart disease, strokes, nerve damage, eye damage, and kidney damage. Call the physician if there is faintness, excess sleepiness, or very rapid breathing. DIABETES: You have an abnormally high blood sugar, suspicious for diabetes. Not all high blood sugar requires long-term treatment. High blood sugar can be due to medications, , or the stress of illness. (These cases are "borderline diabetes.") If the doctor feels your high blood sugar might get better with time, you may not require treatment now. It's very important that you follow through. Uncontrolled high blood sugar leads to early heart disease, strokes, nerve damage, eye damage, and kidney damage. All diabetics should follow a diet designed to control the blood sugar. Overweight diabetics should exercise regularly and lose weight. If this is not sufficient to control the blood sugar, pills or insulin shots are necessary. Younger people who develop diabetes almost always require insulin daily. Home testing of blood sugars or urine sugar is required. Diabetic teaching is available to help you figure insulin doses and monitor the blood sugar. Call the physician if there is faintness, excess sleepiness, or very rapid breathing. If hypoglycemia (LOW blood sugar) develops, symptoms are shakiness, weakness, sweating, and confusion. In this case, you should eat or drink something with sugar at once. INSULIN: Insulin is a natural hormone that lowers blood sugar. Normal blood sugar prevents complications of diabetes. For most diabetics, insulin is the best way to treat the illness. Be sure you know how to measure the insulin correctly. Insulin is measured in "units." There are three types of insulin: N (NPH or long acting), R (regular or short acting), and L (Lente or very long acting). Be sure you are using the right amount of each type. Insulin must be injected into the fat. You can use the abdomen, upper arms , and thighs. Select a different injection site every time. Wipe the site with alcohol before injecting. When first starting insulin, some adjusting of the insulin dose is necessary. Keep a record of each insulin dose and time of injection, and of the blood sugar and the time you test it. Sometimes insulin can make the blood sugar too low. If you become dizzy, sweaty, shaky, or confused, you may be having a hypoglycemic episode. Immediately use juice or some other sweet food. Call the doctor if the symptoms don't go away. FOLLOW-UP CARE: If you have been referred to a physician for follow-up care, call the physician s office for an appointment as you were instructed or within the next two days. If you experience worsening or a significant change in your symptoms, notify the physician immediately or return to the Emergency Department at any time for re-evaluation. Prescriptions: Blood Sugar Diagnostic [Accu-Chek Guide Test Strip] 1 each MC TID 30 Days strip Insulin Aspart [Novolog Insulin 100 Unit/1 ml 10 ml] 0 unit SUBCUT .SLD SCALE # 10 ml Forms: Elevated Blood Pressure Referrals: MILADIS VALLE MD [COMMUNITY BASED STAFF] - Follow up as needed
[2017-09-06 16:19] LABS: APPEARANCE,URINE CLEAR; BILIRUBIN,URINE NEGATIVE (NEGATIVE); COLOR,URINE YELLOW; GLUCOSE, URINE >=500 mg/dL (NEGATIVE); KETONES,URINE 20 mg/dL (NEGATIVE); LEUKOCYTE ESTERASE,URINE NEGATIVE (NEGATIVE); NITRITE,URINE NEGATIVE (NEGATIVE); PROTEIN,URINE NEGATIVE (NEGATIVE); URINE SPECIFIC GRAVITY 1.035; UROBILINOGEN,URINE NEGATIVE mg/dL (<2.0)
[2017-09-06 16:42] LABS: ALANINE AMINOTRANSFERASE 44 U/L (9-52); ALBUMIN 4.3 g/dL (3.5-5.0); ALKALINE PHOSPHATASE 153 U/L (38-126); ASPARTATE AMINO TRANSFERASE 53 U/L (14-36); BILIRUBIN,DIRECT 0.4 mg/dL (0.0-0.4); BILIRUBIN,TOTAL 0.4 mg/dL (0.2-1.3); BLOOD UREA NITROGEN 12 mg/dL (7-20); CALCIUM 9.9 mg/dL (8.4-10.2); CHLORIDE 94 mmol/L (98-107); CREATINE KINASE 31 U/L (30-135); POTASSIUM 4.8 mmol/L (3.6-5.0); TOTAL PROTEIN 7.5 g/dL (6.3-8.2)
[2017-09-06 16:49] LABS: ANION GAP 19 (5-19); CARBON DIOXIDE 25 mmol/L (22-30); SODIUM 137.8 mmol/L (137-145)
[2017-09-06 16:58] LABS: GLUCOSE 493 mg/dL (75-110)
[2017-09-06] MEDS ORDERED: NORMAL SALINE 1000 ML 1,000 ML IV PRN (17:01)
[2017-09-06] MEDS ORDERED: INSULIN LISPRO 100 UNIT/ML 3 ML VIAL SUBCUT ONE (17:16)
[2017-09-06 18:53] VITALS: BP 122/88
== END 2017-09-06 18:56 | disposition home or self-care (01) ==
LOC: ER 15:10
DX: E10.65 Type 1 diabetes mellitus with hyperglycemia (principal); T38.3X6A Underdosing of insulin and oral hypoglycemic [antidiabetic] drugs, initial encounter; Z91.128 Patient's intentional underdosing of medication regimen for other reason; Z91.14 Patient's other noncompliance with medication regimen; R10.30 Lower abdominal pain, unspecified; M79.662 Pain in left lower leg; M79.661 Pain in right lower leg; R25.2 Cramp and spasm; R00.0 Tachycardia, unspecified; N92.1 Excessive and frequent menstruation with irregular cycle; Z79.899 Other long term (current) drug therapy
CPT/HCPCS: 99284; 96360; 36415; 82962; 82550; 81025; 80053; 81001; J3490; J1815; J7030

== ENCOUNTER 2017-10-06 14:02 | Inpatient (IN) | payer BC, MEDICAID ==
[2017-10-06] MEDS ORDERED: NORMAL SALINE 1000 ML 1,000 ML IV PRN ×2 (14:15→18:01)
[2017-10-06] MEDS ORDERED: NORMAL SALINE 1000 ML 1,000 ML IV ONE ×2 (14:15→17:45)
[2017-10-06] MEDS ORDERED: INSULIN REG, HUMAN 100 UNIT/ML 3 ML VIAL (PYX) IV ONE ×2 (14:16→15:06)
[2017-10-06] MEDS ORDERED: DEXTROSE 50%-WATER 25 GM/50 ML DISP.SYRIN IV PRN ×2 (14:18)
[2017-10-06] MEDS ORDERED: DEXTROSE 40% GEL 15 GM TUBE PO PRN ×2 (14:18)
[2017-10-06] MEDS ORDERED: GLUCAGON,HUMAN RECOMB 1 MG INJ IM PRN (14:18)
[2017-10-06 15:52] LABS: ABSOLUTE LYMPHOCYTES (AUTO) 1.8 10^3/uL (0.5-4.7); ABSOLUTE MONOCYTES (AUTO) 0.4 10^3/uL (0.1-1.4); BASOPHILS % (AUTO) 0.5 % (0-2); EOSINOPHILS % (AUTO) 0.3 % (0-6); HEMATOCRIT 43.2 % (36.0-47.0); HEMOGLOBIN 14.3 g/dL (12.0-15.5); LYMPHOCYTES % (AUTO) 24.8 % (13-45); MEAN CORPUSCULAR HEMOGLOBIN 29.5 pg (27.0-33.4); MEAN CORPUSCULAR VOLUME 89 fl (80-97); MONOCYTES % (AUTO) 5.9 % (3-13); PLATELET COUNT 393 10^3/uL (150-450); RED BLOOD COUNT 4.84 10^6/uL (3.72-5.28); RED CELL DISTRIBUTION WIDTH 13.4 % (11.5-14.0); SEGMENTED NEUTROPHILS % (AUTO) 68.5 % (42-78); TOTAL CELLS COUNTED % (AUTO) 100 %; WHITE BLOOD COUNT 7.4 10^3/uL (4.0-10.5)
[2017-10-06 16:11] LABS: APPEARANCE,URINE SLIGHTLY-CLOUDY; BILIRUBIN,URINE NEGATIVE (NEGATIVE); COLOR,URINE YELLOW; GLUCOSE, URINE >=500 mg/dL (NEGATIVE); KETONES,URINE 80 mg/dL (NEGATIVE); LEUKOCYTE ESTERASE,URINE NEGATIVE (NEGATIVE); NITRITE,URINE NEGATIVE (NEGATIVE); PROTEIN,URINE 30 mg/dL (NEGATIVE); URINE SPECIFIC GRAVITY 1.024; UROBILINOGEN,URINE NEGATIVE mg/dL (<2.0)
[2017-10-06 16:13] LABS: ALANINE AMINOTRANSFERASE 51 U/L (9-52); ALBUMIN 4.8 g/dL (3.5-5.0); ALKALINE PHOSPHATASE 169 U/L (38-126); ASPARTATE AMINO TRANSFERASE 40 U/L (14-36); BILIRUBIN,DIRECT 0.5 mg/dL (0.0-0.4); BILIRUBIN,TOTAL 0.7 mg/dL (0.2-1.3); BLOOD UREA NITROGEN 14 mg/dL (7-20); CALCIUM 10.5 mg/dL (8.4-10.2); TOTAL PROTEIN 7.8 g/dL (6.3-8.2)
[2017-10-06 16:18] LABS: CHLORIDE 95 mmol/L (98-107); SODIUM 137.1 mmol/L (137-145)
[2017-10-06 16:21] LABS: ANION GAP 34 (5-19)
[2017-10-06 16:22] LABS: CARBON DIOXIDE 8 mmol/L (22-30); GLUCOSE 609 mg/dL (75-110); POTASSIUM 6.4 mmol/L (3.6-5.0)
[2017-10-06] MEDS ORDERED: SODIUM BICARBONATE 4.2% INJ (2.5 MEQ/5 ML) VIAL INJ ONE (16:28)
[2017-10-06] MEDS ORDERED: WATER FOR INJECTION,STERILE 1,000 ML with SODIUM BICARBONATE 100 MEQ IV PRN ×2 (17:24)
[2017-10-06] MEDS ORDERED: SODIUM BICARBONATE 8.4% INJ 50 MEQ/50 ML DISP.SYRIN IV ONE (17:30)
--- NOTE | 2017-10-06 17:48 | ER Document Report ---
ED General - General Chief Complaint: High Blood Sugar Stated Complaint: BLOOD SUGAR ISSUES Time Seen by Provider: 10/06/17 14:15 Notes: Chief complaint: Elevated blood sugar History of complain:( obtained from----patient) 22 years old female with a history of type 1 diabetes presents today with elevated blood sugar. Denies any fever chills runny nose sore throat cough dysuria or frequency. She states that today's the day that her mom and she was feeling sad and did not take her medications. Onset: Sudden Duration: Few hours Severity: Moderate to severe Quality: Dull Context: Insulin-dependent diabetes Exacerbating factor and relieving factors: Not not applicable REVIEW OF SYSTEMS: CONSTITUTIONAL : Denies fever, chills, or sweats. Denies recent illness. EENT: Denies eye, ear, throat, or mouth pain or symptoms. Denies nasal or sinus congestion or discharge. Denies throat, tongue, or mouth swelling or difficulty swallowing. CARDIOVASCULAR: Denies chest pain. Denies palpitations or racing or irregular heart beat. Denies ankle edema. RESPIRATORY: Denies cough, cold, or chest congestion. Denies shortness of breath, difficulty breathing, or wheezing. GASTROINTESTINAL: Denies distention. Denies nausea, vomiting, or diarrhea. Denies blood in vomitus, stools, or per rectum. Denies black, tarry stools. Denies constipation. GENITOURINARY: Denies difficulty urinating, painful urination, burning, frequency, blood in urine, or discharge. FEMALE GENITOURINARY: Denies vaginal bleeding, heavy or abnormal periods, irregular periods. Denies vaginal discharge or odor. MUSCULOSKELETAL: Denies back or neck pain or stiffness. Denies joint pain or swelling. SKIN: Denies rash, lesions or sores. HEMATOLOGIC : Denies easy bruising or bleeding. LYMPHATIC: Denies swollen, enlarged glands. NEUROLOGICAL: Denies confusion or altered mental status. Denies passing out or loss of consciousness. Denies dizziness or lightheadedness. Denies headache. Denies weakness or paralysis or loss of use of either side. Denies problems with gait or speech. Denies sensory loss, numbness, or tingling. Denies seizures. PSYCHIATRIC: Denies anxiety or stress. Denies depression, suicidal ideation, or homicidal ideation. ALL OTHER SYSTEMS REVIEWED AND NEGATIVE. PHYSICAL EXAMINATION: GENERAL: Well-appearing, well-nourished and in no acute distress. HEAD: Atraumatic, normocephalic. EYES: Pupils equal round and reactive to light, extraocular movements intact, conjunctiva are normal. ENT: Nares patent, oropharynx clear without exudates. Moist mucous membranes. NECK: Normal range of motion, supple without lymphadenopathy LUNGS: Breath sounds clear to auscultation bilaterally and equal. No wheezes rales or rhonchi. HEART: Regular rate and rhythm without murmurs ABDOMEN: Soft, nontender, nondistended abdomen. No guarding, no rebound. No masses appreciated. Examination of genitals-deferred Musculoskeletal: Normal range of motion, no pitting or edema. No cyanosis. NEUROLOGICAL: Cranial nerves grossly intact. Normal speech, normal gait. Normal sensory, motor exams PSYCH: Normal mood, normal affect. SKIN: Warm, Dry, normal turgor, no rashes or lesions noted. Dictation was performed using [employer] voice recognition software TRAVEL OUTSIDE OF THE [place] IN LAST 30 DAYS: No - HPI Notes: Dictated - Related Data Allergies/Adverse Reactions: No Known Allergies Allergy (Verified 10/06/17 14:38) Past Medical History - Social History Smoking Status: Never Smoker Chew tobacco use (# tins/day): No Frequency of alcohol use: None Drug Abuse: None Family History: CVA, DM - Mother, Hypertension Patient has suicidal ideation: No Patient has homicidal ideation: No Endocrine Medical History: Reports: Hx Diabetes Mellitus Type 1 Renal/ Medical History: Denies: Hx Peritoneal Dialysis Psychiatric Medical History: Reports: Hx Bipolar Disorder, Hx Depression - Immunizations Hx Diphtheria, Pertussis, Tetanus Vaccination: No Review of Systems - Review of Systems Notes: Dictated Physical Exam - Vital signs Vitals: Temp Pulse Resp BP Pulse Ox 97.8 F 114 H 14 121/69 99 10/06/17 14:07 10/06/17 14:07 10/06/17 14:07 10/06/17 14:07 10/06/17 14:07 - Notes Notes: Dictated Course - Re-evaluation Re-evalutation: 10/06/17 17:47 Given IV fluids IV insulin IV bicarb - Vital Signs Vital signs: Temp Pulse Resp BP Pulse Ox 97.8 F 114 H 14 121/69 99 10/06/17 14:07 10/06/17 14:07 10/06/17 14:07 10/06/17 14:07 10/06/17 14:07 - Laboratory Result Diagrams: 10/06/17 15:27 10/06/17 15:27 Laboratory results interpreted by me: 10/06/17 10/06/17 10/06/17 14:10 15:27 15:27 Potassium 6.4 H* Chloride 95 L Carbon Dioxide 8 L* Anion Gap 34 H Glucose 609 H* POC Glucose > 550 H* Calcium 10.5 H Direct Bilirubin 0.5 H AST 40 H Alkaline Phosphatase 169 H Urine Protein 30 H Urine Glucose (UA) >=500 H Urine Ketones 80 H Urine Blood LARGE H Critical Care Note - Critical Care Note Total time excluding time spent on procedures (mins): 60 Comments: Metabolic acidosis, diabetic ketoacidosis management Discharge - Discharge Clinical Impression: DKA (diabetic ketoacidoses) Qualifiers: Diabetes mellitus type: type 1 Diabetes mellitus complication detail: without coma Qualified Code(s): E10.10 - Type 1 diabetes mellitus with ketoacidosis without coma Condition: Serious Admitting Provider: Hospitalist Unit Admitted: IMCU
[2017-10-06] MEDS ORDERED: NORMAL SALINE 100 ML with INSULIN REGULAR, HUMAN 100 UNIT IV PRN ×2 (18:01)
--- NOTE | 2017-10-06 18:59 | HISTORY AND PHYSICAL E ---
History and Physical NAME: DAVID FARIAS : 1995 AGE: 22Y ADMITTED: 10/06/2017 ROOM: CODE STATUS: FULL CODE. PRIMARY CARE PROVIDER: Not established. CHIEF COMPLAINT: High blood sugar. HISTORY OF PRESENT ILLNESS: The patient is a 22-year-old female with a past medical history of diabetes mellitus type 1 since the age of 9. The patient presented to the Emergency Department with a chief complaint of high blood sugars. According to the patient, she never misses her insulin and takes 20 units of Lantus subcu every evening as well as 20 units of NovoLog with each meal. The patient stated that she does not check her blood sugar but does not miss her insulin. The patient has had 5 inpatient visits for diabetic ketoacidosis in the last calendar year and a couple of ED visits associated with this as well. The patient did receive a letter of termination from her primary care provider and since that time, the patient states that she has not seen anyone. Uncertain of how the patient has been getting her insulin in the interim to this. The patient denies any specific symptoms to include nausea, vomiting, diarrhea. No shortness of breath, dizziness or chest pain. The patient denies any urinary symptoms, any respiratory symptoms, citing that she feels she has been under stress. The patient's mother in June of this year of diabetes-related complications. The patient states that she feels that has been a great stressor on her life although she denies any specific symptoms of depression or suicidal/homicidal ideation. Upon presentation to the Emergency Department, the patient's potassium was found to be 6.4, bicarb was 8, glucose was 609, and with 80 ketones and the patient was referred to the hospitalist for admission and management. PAST MEDICAL HISTORY: Remarkable for: 1. Diabetes mellitus type 1. 2. Gastroparesis. 3. Hepatic steatosis. 4. Recurrent chlamydia. PAST SURGICAL HISTORY: Negative. ALLERGIES: No known drug allergies. HOME MEDICATIONS: Include: 1. Lantus 20 units subcu q. hour of sleep. 2. NovoLog 20 units subcu prandially. SOCIAL HISTORY: The patient currently resides at home with her aunt. 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 The patient's surrogate decision maker would be her father, Jeovanny and may be reached at [phone]. The patient denies any tobacco use. No history of alcohol or illicit drug use. FAMILY MEDICAL HISTORY: The patient's mother is of complications of diabetes. The patient's father is alive with hypertension. The patient had no children and does have a sibling who is healthy. REVIEW OF SYSTEMS: CONSTITUTIONAL: The patient denies any fevers, chills, dizziness, weakness and loss of consciousness. SKIN: The patient denies any diaphoresis, rashes, bruising, itching. HEENT: The patient denies any vision changes, hearing loss. No nasal drainage, sore throat. CARDIOVASCULAR: The patient denies any chest pain, heart palpitations. No orthopnea. CHEST: The patient denies any cough, sputum production or hemoptysis. GENITOURINARY: The patient denies any hematuria, pyuria or dysuria. No vaginal discharge or malodorous discharge. GASTROINTESTINAL: Denies any nausea, vomiting, diarrhea, abdominal pain, bloody hematemesis. No constipation, melena. No hematochezia. MUSCULOSKELETAL: Denies any acute or chronic joint pain. NEUROLOGICAL: No seizures, tremors, loss of consciousness. HEMATOLOGICAL: Denies any cate bleeding, easy bruising. ENDOCRINE: Denies any recent weight changes. Assumes her blood sugars have been high. PSYCHIATRIC: Denies any suicidal or homicidal ideation. The rest of the review of the other organ systems is negative. PHYSICAL EXAMINATION: GENERAL: The patient is a well-developed, reasonably-nourished, 22-year-old female who is awake, alert, and oriented to person, place, time, and situation. She is verbal, conversational, ambulatory, does not appear to be in any acute distress. VITAL SIGNS: As follows: Temperature is 98.4, pulse 102, respirations 16, blood pressure 113/71, oxygen saturation is 100% on room air. SKIN: Warm and dry. No rash. Not diaphoretic. HEENT: Pupils equal, round, reactive to light and accommodation. Conjunctiva is pink. Sclera is nonicteric. No mouth lesions. Tongue is midline. NECK: Supple. No JVD. No palpable lymphadenopathy or thyromegaly. CARDIOVASCULAR: Heart is regular. There is no murmur or rub. CHEST: Clear, symmetrical, unlabored. ABDOMEN: Soft, nontender, nondistended. Bowel sounds are present. No palpable organomegaly. BACK: No CVA tenderness, sacral edema. EXTREMITIES: No clubbing, cyanosis, edema or peripheral signs of embolization. Pedal pulses +1 noted bilaterally. PSYCHIATRIC: Denies any suicidal/homicidal ideation. DIAGNOSTICS: Lab values are as follows: Hematology obtained on 10/06/2017; WBCs are 7.4; hemoglobin is 14.3; hematocrit is 43.2; platelet count is 393,000. Chemistry obtained on 10/06/2017: Sodium is 137, potassium 6.4, chloride is 95, carbon dioxide 8, BUN 34, creatinine is 0.62, glucose 609, calcium is 10.5, bilirubin 0.7, AST 40, ALT is 51, alkaline phosphatase 169, total protein 7.8, albumin 4.8. IMPRESSION AND PLAN: 1. Diabetic ketoacidosis. Will admit the patient to PCU as she is otherwise hemodynamically stable. Will have the patient receive a total of 2 L bolus and then start on 200 mL/hr. Nursing has been instructed to contact once the patient's blood glucose drops below 250. Place the patient on an insulin drip and transition to dextrose supplement once less than 250 and follow. 2. Diabetes mellitus type 1. Patient most likely has an element of noncompliance given the actual amount of admissions associated with this. The patient would benefit from endocrinology. Now that the patient has Medicaid again, hopefully, can get her established. The patient may benefit with better control with an insulin pump. 3. History of diabetic gastroparesis. The patient denies any current symptoms at this time. 4. Diabetic neuropathy. We will start the patient on a low dose of Neurontin. DISPOSITION: The patient is a FULL CODE. Pending patient's symptomatology and diagnostic findings, will re-evaluate as needed. Will admit the patient to inpatient IMCU as the patient's expected length of stay should surpass 2 midnights. TIME SPENT: On this admission including assessment, plan, physical examination, patient education, review of previous records and family meeting is 35 minutes. DICTATING PHYSICIAN: MILADIS ENRIQUEZ NP [id number] PHY#: [id number] ID: [id number] JOB#: [id number] ACCT: [id number] cc:MILADIS ENRIQUEZ NP NO Lashawn CRAIG
[2017-10-06 20:26] LABS: BLOOD UREA NITROGEN 11 mg/dL (7-20); CALCIUM 9.5 mg/dL (8.4-10.2); GLUCOSE 262 mg/dL (75-110)
[2017-10-06 20:32] LABS: CARBON DIOXIDE 12 mmol/L (22-30); CHLORIDE 106 mmol/L (98-107); SODIUM 143.4 mmol/L (137-145)
[2017-10-06 20:35] LABS: ANION GAP 25 (5-19); POTASSIUM 4.7 mmol/L (3.6-5.0)
[2017-10-06] MEDS: POTASSI CL 20 MEQ/D5-1/2NS 1L 1,000 ML IV PRN (21:04)
[2017-10-06] MEDS: ACETAMINOPHEN 325 MG TABLET PO PRN (21:47)
[2017-10-06] MEDS: HEPARIN SOD (PORCINE) 5,000 UNIT/ML 1 ML SYRINGE SUBCUT SCH (21:49)
[2017-10-06] MEDS ORDERED: GABAPENTIN 100 MG CAPSULE PO SCH (22:00)
[2017-10-07] MEDS: POTASSI CL 20 MEQ/D5-1/2NS 1L 1,000 ML IV PRN ×3 (01:48→12:26)
[2017-10-07] MEDS ORDERED: IBUPROFEN 400 MG TABLET PO ONE (02:15)
[2017-10-07 02:17] LABS: ANION GAP 18 (5-19); BLOOD UREA NITROGEN 9 mg/dL (7-20); CALCIUM 9.1 mg/dL (8.4-10.2); CARBON DIOXIDE 17 mmol/L (22-30); CHLORIDE 107 mmol/L (98-107); GLUCOSE 240 mg/dL (75-110); POTASSIUM 4.5 mmol/L (3.6-5.0)
[2017-10-07] MEDS: HEPARIN SOD (PORCINE) 5,000 UNIT/ML 1 ML SYRINGE SUBCUT SCH ×3 (05:11→22:13)
[2017-10-07 08:53] LABS: ANION GAP 14 (5-19); BLOOD UREA NITROGEN 6 mg/dL (7-20); CALCIUM 9.1 mg/dL (8.4-10.2); CARBON DIOXIDE 19 mmol/L (22-30); CHLORIDE 106 mmol/L (98-107); GLUCOSE 228 mg/dL (75-110); POTASSIUM 4.1 mmol/L (3.6-5.0); SODIUM 139.4 mmol/L (137-145)
[2017-10-07] MEDS: IBUPROFEN 600 MG TABLET PO PRN ×2 (10:49→17:35)
[2017-10-07] MEDS: GABAPENTIN 100 MG CAPSULE PO SCH ×2 (14:20→22:07)
[2017-10-07] MEDS ORDERED: NORMAL SALINE 1000 ML 1,000 ML IV PRN (16:05)
--- NOTE | 2017-10-07 16:19 | PDOC PROGRESS REPORT ---
Subjective Progress Note for:: 10/07/17 Subjective:: Patient stated she was feeling better this morning. She was starting to feel hungry. No confusion. She slept well. Abdominal pain minimal. Her legs are hurting as they have been for quite some time now. No chest pain or difficulty breathing. She mentioned that her mother of diabetes related complications several times during her visit. She also feels that she tries to eat well and manage her diabetes and is not quite sure why this keeps happening. Reason For Visit: DKA Physical Exam Vital Signs: Temp Pulse Resp BP Pulse Ox 98.2 F 121 H 12 106/70 98 10/07/17 10:56 10/07/17 07:00 10/07/17 12:42 10/07/17 12:42 10/07/17 12:42 Intake & Output 10/06/17 10/07/17 10/08/17 06:59 06:59 06:59 Intake Total 1503 Output Total 200 Balance 1303 Weight 50.5 kg General appearance: PRESENT: no acute distress, cooperative Head exam: PRESENT: atraumatic, normocephalic Eye exam: ABSENT: conjunctival injection, scleral icterus Mouth exam: PRESENT: moist, tongue midline Neck exam: PRESENT: full ROM Respiratory exam: PRESENT: clear to auscultation yajaira, unlabored. ABSENT: rales , rhonchi, wheezes Cardiovascular exam: PRESENT: RRR. ABSENT: systolic murmur GI/Abdominal exam: PRESENT: normal bowel sounds, soft. ABSENT: distended, tenderness Extremities exam: ABSENT: pedal edema Neurological exam: PRESENT: alert, awake, oriented to person, oriented to place , oriented to situation Psychiatric exam: PRESENT: appropriate affect Skin exam: PRESENT: dry, intact, warm Results Laboratory Results: 10/06/17 10/07/17 10/07/17 19:50 01:56 01:56 Sodium 143.4 142.0 Potassium 4.7 D 4.5 Chloride 106 107 Carbon Dioxide 12 L 17 L Anion Gap 25 H 18 BUN 11 9 Creatinine 0.51 L 0.42 L Est GFR ( Amer) > 60 > 60 Est GFR (Non-Af Amer) > 60 > 60 Glucose 262 H 240 H Calcium 9.5 9.1 Magnesium 2.0 10/07/17 08:10 Sodium 139.4 Potassium 4.1 Chloride 106 Carbon Dioxide 19 L Anion Gap 14 BUN 6 L Creatinine 0.43 L Est GFR ( Amer) > 60 Est GFR (Non-Af Amer) > 60 Glucose 228 H Calcium 9.1 Magnesium Assessment & Plan - Diagnosis (1) DKA (diabetic ketoacidoses) Qualifiers: Diabetes mellitus type: type 1 Diabetes mellitus complication detail: without coma Qualified Code(s): E10.10 - Type 1 diabetes mellitus with ketoacidosis without coma Is this a current diagnosis for this admission?: Yes Plan: She has type 1 diabetes with the complications of recurrent DKA, diabetic gastroparesis and neuropathy. With fluid resuscitation and insulin her gap has now posed. Her bicarb is almost normal. She is now eating and drinking and off the drip. We have started long-acting insulin and also bolus insulin before meals and at bedtime. We have ordered diabetic dietary teaching for patient. (2) Neuropathy Is this a current diagnosis for this admission?: Yes Plan: Patient is on gabapentin 100 mg p.o. nightly. Secondary to numbness and pain in her legs I have increased her gabapentin to 100 mg p.o. 3 times daily. (3) Gastroparesis Is this a current diagnosis for this admission?: Yes Plan: At this point she is eating and drinking without difficulty. Will monitor for symptoms of gastroparesis. - Time Time Spent with patient: 25-34 minutes Medications reviewed and adjusted accordingly: Yes Anticipated discharge: Home - Inpatient Certification Based on my medical assessment, after consideration of the patient's comorbidities, presenting symptoms, or acuity I expect that the services needed warrant INPATIENT care.: Yes I certify that my determination is in accordance with my understanding of Medicare's requirements for reasonable and necessary INPATIENT services [42 CFR 412.3e].: Yes Medical Necessity: Need For IV Fluids, Risk of Complication if Not Cared For in Hospital - Patient also is on Trileptal, I will speak with her about why she is on this medication, seizure disorder or otherwise. It has been restarted.
[2017-10-07 17:02] LABS: ANION GAP 13 (5-19); BLOOD UREA NITROGEN 4 mg/dL (7-20); CALCIUM 9.3 mg/dL (8.4-10.2); CARBON DIOXIDE 21 mmol/L (22-30); CHLORIDE 106 mmol/L (98-107); GLUCOSE 100 mg/dL (75-110); SODIUM 140.2 mmol/L (137-145)
[2017-10-07] MEDS: INSULIN LISPRO 100 UNIT/ML 3 ML VIAL SUBCUT SCH (17:10)
[2017-10-07] MEDS: INSULIN LISPRO 100 UNIT/ML 3 ML VIAL SUBCUT PRN ×2 (17:10→22:12)
[2017-10-07] MEDS ORDERED: NORMAL SALINE 1000 ML 1,000 ML IV ONE (17:45)
[2017-10-07] MEDS ORDERED: INSULIN GLARGINE,HUM.REC.ANLOG 300 UNIT/3 ML INSULN.PEN SUBCUT SCH (22:00)
[2017-10-07] MEDS ORDERED: INSULIN GLARGINE,HUM.REC.ANLOG 1,000 UNIT/10 ML UNIT SUBCUT ONE (22:04)
[2017-10-07] MEDS: ACETAMINOPHEN 325 MG TABLET PO PRN (22:07)
[2017-10-08] MEDS: GABAPENTIN 100 MG CAPSULE PO SCH ×3 (05:52→21:08)
[2017-10-08] MEDS: IBUPROFEN 600 MG TABLET PO PRN ×2 (05:53→16:03)
[2017-10-08] MEDS: HEPARIN SOD (PORCINE) 5,000 UNIT/ML 1 ML SYRINGE SUBCUT SCH ×3 (05:54→21:09)
[2017-10-08 06:15] LABS: HEMATOCRIT 36.4 % (36.0-47.0); HEMOGLOBIN 12.3 g/dL (12.0-15.5); MEAN CORPUSCULAR HEMOGLOBIN 29.2 pg (27.0-33.4); MEAN CORPUSCULAR HGB CONC 33.7 g/dL (32.0-36.0); MEAN CORPUSCULAR VOLUME 87 fl (80-97); PLATELET COUNT 275 10^3/uL (150-450); RED CELL DISTRIBUTION WIDTH 12.8 % (11.5-14.0); WHITE BLOOD COUNT 5.8 10^3/uL (4.0-10.5)
[2017-10-08 06:37] LABS: ANION GAP 10 (5-19); BLOOD UREA NITROGEN 7 mg/dL (7-20); CALCIUM 9.3 mg/dL (8.4-10.2); CARBON DIOXIDE 22 mmol/L (22-30); CHLORIDE 102 mmol/L (98-107); GLUCOSE 337 mg/dL (75-110); POTASSIUM 4.6 mmol/L (3.6-5.0); SODIUM 134.4 mmol/L (137-145)
[2017-10-08] MEDS: INSULIN LISPRO 100 UNIT/ML 3 ML VIAL SUBCUT SCH ×3 (09:28→17:48)
[2017-10-08] MEDS: INSULIN LISPRO 100 UNIT/ML 3 ML VIAL SUBCUT PRN ×4 (09:28→22:30)
[2017-10-08] MEDS: ACETAMINOPHEN 325 MG TABLET PO PRN ×2 (09:37→21:07)
[2017-10-08] MEDS ORDERED: (PENDING PHARMACY ID) (Oxcarbazepine [Trileptal] 300 MG) PO SCH (10:00)
[2017-10-08] MEDS ORDERED: OXCARBAZEPINE 150 MG TABLET PO SCH (10:00)
--- NOTE | 2017-10-08 17:09 | PDOC PROGRESS REPORT ---
Subjective Progress Note for:: 10/08/17 Subjective:: Patient is starting to feel better. She realizes her sugars are still out of control. She and I discussed the importance of carb counting. She also told me about the fact that she has Medicaid only for several more months until she turns 23 and then she will lose her health insurance. She has a job that will not allow her, financially, to purchase health insurance. So we are strategizing on ways to get her the care she needs in this setting. For now she states that she is not having chest pain or difficulty breathing. No nausea vomiting diarrhea or constipation. No abdominal pain. Her bilateral legs are starting to feel somewhat better. We discussed at length neuropathy, her mother with complications related to diabetes so she is aware of complications that can arise from this illness. Patient has been persistently tachycardic though she does not know and she is tachycardic. She does not know of any history of tachycardia, does not know if this is her baseline. No palpitations. Reason For Visit: DKA Physical Exam Vital Signs: Temp Pulse Resp BP Pulse Ox 98.6 F 126 H 18 113/58 L 100 10/08/17 15:40 10/08/17 15:40 10/08/17 15:40 10/08/17 15:40 10/08/17 15:40 Intake & Output 10/07/17 10/08/17 10/09/17 06:59 06:59 06:59 Intake Total 1503 1897 10 Output Total 200 Balance 1303 1897 10 Weight 50.5 kg 52.6 kg General appearance: PRESENT: no acute distress, cooperative, thin Head exam: PRESENT: atraumatic, normocephalic Eye exam: ABSENT: conjunctival injection, scleral icterus Ear exam: PRESENT: normal external ear exam Mouth exam: PRESENT: moist, neck supple Respiratory exam: PRESENT: clear to auscultation yajaira, unlabored. ABSENT: rales , rhonchi, wheezes Cardiovascular exam: PRESENT: tachycardia. ABSENT: systolic murmur Pulses: PRESENT: normal radial pulses GI/Abdominal exam: PRESENT: normal bowel sounds, soft. ABSENT: distended, guarding, tenderness Extremities exam: ABSENT: pedal edema, tenderness Neurological exam: PRESENT: alert, awake, oriented to person, oriented to place , oriented to situation, CN II-XII grossly intact Psychiatric exam: PRESENT: appropriate affect. ABSENT: anxious Skin exam: PRESENT: dry, intact, warm Results Laboratory Results: 10/08/17 05:33 10/08/17 05:33 10/07/17 10/08/17 10/08/17 14:48 05:33 05:33 WBC 5.8 RBC 4.20 Hgb 12.3 Hct 36.4 MCV 87 MCH 29.2 MCHC 33.7 RDW 12.8 Plt Count 275 Sodium 140.2 134.4 L Potassium 4.0 4.6 Chloride 106 102 Carbon Dioxide 21 L 22 Anion Gap 13 10 BUN 4 L 7 Creatinine 0.37 L 0.43 L Est GFR ( Amer) > 60 > 60 Est GFR (Non-Af Amer) > 60 > 60 Glucose 100 337 H Calcium 9.3 9.3 Assessment & Plan - Diagnosis (1) DKA (diabetic ketoacidoses) Qualifiers: Diabetes mellitus type: type 1 Diabetes mellitus complication detail: without coma Qualified Code(s): E10.10 - Type 1 diabetes mellitus with ketoacidosis without coma Is this a current diagnosis for this admission?: Yes Plan: Anion gap is closed. Bicarb is normal. Patient is doing well on glargine, lispro bolus and sliding scale with meals. CBGs are not sufficiently controlled and we will continue to work on insulin titration for a safe discharge. She would like to be referred to an wastewater manager for discharge, while she has Medicaid. Medicaid will end in January when she turns 23. She used to be on an insulin pump when she had insurance as a child, she saw a pediatric wastewater manager. (2) Neuropathy Is this a current diagnosis for this admission?: Yes Plan: Secondary to diabetes likely. She is newly on gabapentin 100 mg p.o. 3 times daily. She is using Tylenol and Motrin as needed. She states that her leg pain is improving. She and I discussed the possible complications of uncontrolled diabetes. She states that when she was younger she was not so concerned about her illness but now as she is getting older and as she saw her mother with complications related to diabetes she understands the importance of good diabetic control and would like as much help as possible in achieving that. (3) Gastroparesis Is this a current diagnosis for this admission?: Yes Plan: Has had this as a complication of diabetes in the past. For now she is eating and drinking without difficulty. (4) Poverty Is this a current diagnosis for this admission?: Yes Plan: Patient is unable to afford health insurance and will lose her Medicaid in January when she turns 23. She is aware of the free clinic and I encouraged her to register to become a patient there. While she has Medicaid we will refer her to an adult wastewater manager so that hopefully she can get her diabetes under better control. We also discussed the importance of following up with a primary care physician and for her well woman checks as well. She states she was recently diagnosed with Trichomonas and BV but those have resolved. She does not think she has had the HPV vaccine and I recommended that she needs that. (5) Depression Is this a current diagnosis for this admission?: Yes Plan: She states that her primary care doctor, who she really does not like because of communication problems, diagnosed her with a bipolar depression quite sure that she really has that. She states that since her mother earlier this year she has been very sad. She was initially, as an outpatient, placed on a medication for bipolar depression which made her very somnolent. She states that that was changed to Trileptal which has helped her sleep better when she takes it at night and has helped some with anxiety related to her mother's . Continue the Trileptal for now and will continue to encourage her to seek a new primary care doctor. - Time Time Spent with patient: 25-34 minutes Medications reviewed and adjusted accordingly: Yes - Inpatient Certification Based on my medical assessment, after consideration of the patient's comorbidities, presenting symptoms, or acuity I expect that the services needed warrant INPATIENT care.: Yes I certify that my determination is in accordance with my understanding of Medicare's requirements for reasonable and necessary INPATIENT services [42 CFR 412.3e].: Yes Medical Necessity: Risk of Complication if Not Cared For in Hospital
[2017-10-08] MEDS: INSULIN GLARGINE,HUM.REC.ANLOG 300 UNIT/3 ML INSULN.PEN SUBCUT SCH (22:30)
[2017-10-09] MEDS: HEPARIN SOD (PORCINE) 5,000 UNIT/ML 1 ML SYRINGE SUBCUT SCH ×3 (05:27→21:10)
[2017-10-09] MEDS: GABAPENTIN 100 MG CAPSULE PO SCH (05:38)
[2017-10-09] MEDS: IBUPROFEN 600 MG TABLET PO PRN (05:38)
[2017-10-09] MEDS ORDERED: GABAPENTIN 300 MG CAPSULE PO ONE (06:45)
[2017-10-09] MEDS: INSULIN LISPRO 100 UNIT/ML 3 ML VIAL SUBCUT SCH ×3 (07:50→17:01)
[2017-10-09] MEDS: INSULIN LISPRO 100 UNIT/ML 3 ML VIAL SUBCUT PRN ×3 (07:50→21:18)
[2017-10-09] MEDS: OXYCODONE HCL IR 5 MG TABLET PO PRN (14:15)
--- NOTE | 2017-10-09 15:49 | PDOC PROGRESS REPORT ---
Subjective Progress Note for:: 10/09/17 Subjective:: She is having very significant leg pain today. She said her feet are burning and have pins and needles man. Her legs however are feeling better. She thinks that after she receives the gabapentin her discomfort improves. Ibuprofen and Tylenol are not helping. She is eating and drinking well now. She is not having chest pain or difficulty breathing. No nausea vomiting or abdominal pain. Is satisfied with her glucose control and her glucose this morning was 100. Reason For Visit: DKA Physical Exam Vital Signs: Temp Pulse Resp BP Pulse Ox 98.3 F 113 H 18 111/68 99 10/09/17 11:49 10/09/17 11:49 10/09/17 11:49 10/09/17 11:49 10/09/17 11:49 Intake & Output 10/08/17 10/09/17 10/10/17 06:59 06:59 06:59 Intake Total 1897 1197 Balance 1897 1197 Weight 52.6 kg 51.8 kg General appearance: PRESENT: mild distress Head exam: PRESENT: atraumatic, normocephalic Eye exam: ABSENT: conjunctival injection, scleral icterus Mouth exam: PRESENT: moist, neck supple, tongue midline Respiratory exam: PRESENT: clear to auscultation yajaira, unlabored. ABSENT: rales , rhonchi, wheezes Cardiovascular exam: PRESENT: tachycardia. ABSENT: systolic murmur Pulses: PRESENT: normal radial pulses, normal dorsalis pedis pul GI/Abdominal exam: PRESENT: normal bowel sounds, soft. ABSENT: distended, guarding, tenderness Musculoskeletal exam: PRESENT: ambulatory, normal inspection Neurological exam: PRESENT: alert, awake, oriented to person, oriented to place , oriented to situation, CN II-XII grossly intact, other - Decreased sensation over the bilateral feet. Psychiatric exam: PRESENT: appropriate affect. ABSENT: anxious Skin exam: PRESENT: dry, intact, warm Results Laboratory Results: 10/08/17 05:33 10/08/17 05:33 Assessment & Plan - Diagnosis (1) DKA (diabetic ketoacidoses) Qualifiers: Diabetes mellitus type: type 1 Diabetes mellitus complication detail: without coma Qualified Code(s): E10.10 - Type 1 diabetes mellitus with ketoacidosis without coma Is this a current diagnosis for this admission?: Yes Plan: DKA has resolved. We are now working on good glucose control. We will decrease her meal time lispro and continue sliding scale before meals and at bedtime. Continue long-acting insulin. Will refer patient to endocrinology on discharge. (2) Neuropathy Is this a current diagnosis for this admission?: Yes Plan: Patient's neuropathy seems fairly severe. We will continue gabapentin. She will need to be uptitrated as an outpatient. I have added a very low-dose of oxycodone 2.5 mg p.o. every 6 hours as needed severe pain. (3) Gastroparesis Is this a current diagnosis for this admission?: Yes Plan: Not having this problem currently. Will continue to monitor. Patient will need endocrinology and good primary care as an outpatient. (4) Depression Is this a current diagnosis for this admission?: Yes Plan: Patient is stable. We have changed her Trileptal to evening and she is satisfied with this plan. - Time Time Spent with patient: 25-34 minutes Medications reviewed and adjusted accordingly: Yes - Inpatient Certification Based on my medical assessment, after consideration of the patient's comorbidities, presenting symptoms, or acuity I expect that the services needed warrant INPATIENT care.: Yes I certify that my determination is in accordance with my understanding of Medicare's requirements for reasonable and necessary INPATIENT services [42 CFR 412.3e].: Yes Medical Necessity: Need for Pain Control
[2017-10-09] MEDS: INSULIN GLARGINE,HUM.REC.ANLOG 300 UNIT/3 ML INSULN.PEN SUBCUT SCH (21:18)
[2017-10-09] MEDS: GABAPENTIN 300 MG CAPSULE PO SCH (21:19)
[2017-10-09] MEDS ORDERED: OXCARBAZEPINE 150 MG TABLET PO SCH (22:00)
[2017-10-10] MEDS: ACETAMINOPHEN 325 MG TABLET PO PRN (05:53)
[2017-10-10] MEDS: HEPARIN SOD (PORCINE) 5,000 UNIT/ML 1 ML SYRINGE SUBCUT SCH (05:55)
[2017-10-10 07:00] LABS: ANION GAP 9 (5-19); BLOOD UREA NITROGEN 12 mg/dL (7-20); CALCIUM 9.5 mg/dL (8.4-10.2); CARBON DIOXIDE 28 mmol/L (22-30); CHLORIDE 104 mmol/L (98-107); GLUCOSE 154 mg/dL (75-110); POTASSIUM 3.8 mmol/L (3.6-5.0); SODIUM 141.1 mmol/L (137-145)
[2017-10-10] MEDS: OXYCODONE HCL IR 5 MG TABLET PO PRN (07:55)
[2017-10-10] MEDS: INSULIN LISPRO 100 UNIT/ML 3 ML VIAL SUBCUT SCH ×2 (08:04→12:30)
[2017-10-10] MEDS: GABAPENTIN 300 MG CAPSULE PO SCH (09:16)
[2017-10-10] MEDS: INSULIN LISPRO 100 UNIT/ML 3 ML VIAL SUBCUT PRN (12:30)
[2017-10-10 13:48] VITALS: BP 115/76
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
== END 2017-10-10 14:48 | disposition home or self-care (01) | DRG 639 ==
LOC: ER 14:02 → EH 18:40 → ICU 21:35 → 3S 10-07 15:21
PROVIDERS: ADMIT Emergency Medicine; ATTEND Emergency Medicine
DX: E10.10 Type 1 diabetes mellitus with ketoacidosis without coma (principal); E10.43 Type 1 diabetes mellitus with diabetic autonomic (poly)neuropathy; Z59.6 Low income; F32.9 Major depressive disorder, single episode, unspecified; K31.84 Gastroparesis; Z91.19 Patient's noncompliance with other medical treatment and regimen; Z86.19 Personal history of other infectious and parasitic diseases; Z79.4 Long term (current) use of insulin; Z82.49 Family history of ischemic heart disease and other diseases of the circulatory system; Z91.410 Personal history of adult physical and sexual abuse; Z83.3 Family history of diabetes mellitus
CPT/HCPCS: 36415; 80048; 80053; 81001; 81025; 82010; 82962; 83735; 85025; 85027; 96360; 96361; 99291; J1644; J1815; J3480; J3490; J7030

== ENCOUNTER 2017-11-01 12:58 | Inpatient (IN) | payer MEDICAID ==
--- NOTE | 2017-11-01 13:38 | ER Document Report ---
ED Medical Screen (RME) - General Chief Complaint: High Blood Sugar Stated Complaint: BLOOD SUGAR ISSUES Time Seen by Provider: 11/01/17 13:24 Notes: RAPID MEDICAL EVALUATION DISCLOSURE I have seen this patient as part of a Rapid Medical Evaluation and, if applicable, placed any initially appropriate orders. The patient will be seen and fully evaluated, including a full history and physical exam, by a provider ( in Main ED or Fast Track) when a room becomes available. 22-year-old female PMH diabetes DKA here with complaints of feeling bad all over and vomiting since earlier today. She has a history of DKA and states that it feels similar to previous episodes. When she checked her sugar this morning, it was greater than 500 so she gave herself 18 units of NovoLog prior to EMS arrival. EMS prehospital blood sugar was 421. She has also had a dry cough that she noticed earlier today. Denies missing any doses of her insulin over the past few weeks. Does not know why her blood sugar could be so high. EXAM CTAB Tachycardic TRAVEL OUTSIDE OF THE [place] IN LAST 30 DAYS: No - Related Data Allergies/Adverse Reactions: No Known Allergies Allergy (Verified 11/01/17 12:59) Past Medical History - Social History Chew tobacco use (# tins/day): No Frequency of alcohol use: None Drug Abuse: None Family history: Reviewed & Not Pertinent Endocrine Medical History: Reports: Hx Diabetes Mellitus Type 1 - w/neuropathy Renal/ Medical History: Denies: Hx Peritoneal Dialysis Psychiatric Medical History: Reports: Hx Bipolar Disorder, Hx Depression - Immunizations Hx Diphtheria, Pertussis, Tetanus Vaccination: No History of Influenza Vaccine for 02/2017 - 07/2017 Season: Unknown Physical Exam - Vital signs Vitals: Temp Pulse Resp BP Pulse Ox 98.6 F 136 H 21 H 113/63 99 11/01/17 13:03 11/01/17 13:03 11/01/17 13:03 11/01/17 13:03 11/01/17 13:03 Course - Vital Signs Vital signs: Temp Pulse Resp BP Pulse Ox 98.6 F 136 H 21 H 113/63 99 11/01/17 13:03 11/01/17 13:03 11/01/17 13:03 11/01/17 13:03 11/01/17 13:03
[2017-11-01] MEDS: NORMAL SALINE 1000 ML 1,000 ML IV PRN ×2 (14:08→14:10)
[2017-11-01 14:31] LABS: ABSOLUTE LYMPHOCYTES (AUTO) 1.6 10^3/uL (0.5-4.7); ABSOLUTE MONOCYTES (AUTO) 0.4 10^3/uL (0.1-1.4); ABSOLUTE NEUT (AUTO) 7.8 10^3/uL (1.7-8.2); BASOPHILS % (AUTO) 0.4 % (0-2); EOSINOPHILS % (AUTO) 0.1 % (0-6); HEMATOCRIT 43.7 % (36.0-47.0); HEMOGLOBIN 14.4 g/dL (12.0-15.5); MEAN CORPUSCULAR HEMOGLOBIN 28.9 pg (27.0-33.4); MEAN CORPUSCULAR HGB CONC 33.1 g/dL (32.0-36.0); MEAN CORPUSCULAR VOLUME 87 fl (80-97); MONOCYTES % (AUTO) 4.5 % (3-13); PLATELET COUNT 441 10^3/uL (150-450); RED CELL DISTRIBUTION WIDTH 13.1 % (11.5-14.0); TOTAL CELLS COUNTED % (AUTO) 100 %; WHITE BLOOD COUNT 9.9 10^3/uL (4.0-10.5)
[2017-11-01 14:35] LABS: VENOUS BLOOD BASE EXCESS -12.9 mmol/L; VENOUS BLOOD HCO3 11.8 mmol/L (20-32); VENOUS BLOOD PCO2 25.5 mmHg (35-63); VENOUS BLOOD PH 7.28 (7.30-7.42)
--- NOTE | 2017-11-01 14:49 | RADIOLOGY REPORT (SQ) ---
EXAM DESCRIPTION: CHEST 2 VIEWS COMPLETED DATE/TIME: 11/01/2017 2:29 pm REASON FOR STUDY: cough, eval pna COMPARISON: Two-view chest 12/01/2016 EXAM PARAMETERS: NUMBER OF VIEWS: two views TECHNIQUE: Digital Frontal and Lateral radiographic views of the chest acquired. RADIATION DOSE: NA LIMITATIONS: none FINDINGS: LUNGS AND PLEURA: No opacities, masses or pneumothorax. No pleural effusion. MEDIASTINUM AND HILAR STRUCTURES: No masses or contour abnormalities. HEART AND VASCULAR STRUCTURES: Heart normal size. No evidence for failure. BONES: No acute findings. HARDWARE: None in the chest. OTHER: No other significant finding. IMPRESSION: NO ACUTE RADIOGRAPHIC FINDING IN THE CHEST. TECHNICAL DOCUMENTATION: JOB ID: [id number] [employer]- All Rights Reserved Reading location - IP/workstation name: [email or web address]
[2017-11-01 14:56] LABS: ALANINE AMINOTRANSFERASE 26 U/L (9-52); ALBUMIN 5.1 g/dL (3.5-5.0); ALKALINE PHOSPHATASE 150 U/L (38-126); ASPARTATE AMINO TRANSFERASE 33 U/L (14-36); BILIRUBIN,DIRECT 0.5 mg/dL (0.0-0.4); BILIRUBIN,TOTAL 0.6 mg/dL (0.2-1.3); BLOOD UREA NITROGEN 13 mg/dL (7-20); CALCIUM 10.8 mg/dL (8.4-10.2); GLUCOSE 366 mg/dL (75-110); PHOSPHORUS 4.9 mg/dL (2.5-4.5); POTASSIUM 4.6 mmol/L (3.6-5.0); TOTAL PROTEIN 8.9 g/dL (6.3-8.2)
[2017-11-01 15:00] LABS: CARBON DIOXIDE 13 mmol/L (22-30); CHLORIDE 100 mmol/L (98-107); SODIUM 143.4 mmol/L (137-145)
[2017-11-01 15:04] LABS: ANION GAP 30 (5-19)
[2017-11-01] MEDS ORDERED: NORMAL SALINE 1000 ML 1,000 ML IV PRN (16:06)
[2017-11-01] MEDS ORDERED: NORMAL SALINE 1000 ML 1,000 ML IV ONE (16:06)
[2017-11-01] MEDS ORDERED: INSULIN REG, HUMAN 100 UNIT/ML 3 ML VIAL (PYX) IV ONE (16:07)
[2017-11-01] MEDS ORDERED: GLUCAGON,HUMAN RECOMB 1 MG INJ IM PRN ×3 (16:08→21:07)
[2017-11-01] MEDS ORDERED: NORMAL SALINE 100 ML with INSULIN REGULAR, HUMAN 100 UNIT IV PRN ×4 (16:08→16:38)
[2017-11-01] MEDS ORDERED: DEXTROSE 50%-WATER 25 GM/50 ML DISP.SYRIN IV PRN ×4 (16:08→16:38)
[2017-11-01] MEDS ORDERED: DEXTROSE 40% GEL 15 GM TUBE PO PRN ×5 (16:08→21:07)
--- NOTE | 2017-11-01 16:14 | ER Document Report ---
ED General - General Chief Complaint: High Blood Sugar Stated Complaint: BLOOD SUGAR ISSUES Time Seen by Provider: 11/01/17 13:24 Mode of Arrival: Ambulatory Information source: Patient Cannot obtain history due to: Dementia Notes: Chief complaint: Elevated blood sugar History of complain:( obtained from----patient) 22 years old female with a history of type 1 diabetes presents today with general malaise weakness and dehydration abdominal discomfort. Possible DKA, claims that she has been taking medication regularly Onset: Gradual Duration: Last 2 days Severity: Moderate to severe Quality: Generalized Context: Insulin-dependent Exacerbating factor and relieving factors: Not applicable REVIEW OF SYSTEMS: CONSTITUTIONAL : Denies fever, chills, or sweats. Denies recent illness. EENT: Denies eye, ear, throat, or mouth pain or symptoms. Denies nasal or sinus congestion or discharge. Denies throat, tongue, or mouth swelling or difficulty swallowing. CARDIOVASCULAR: Denies chest pain. Denies palpitations or racing or irregular heart beat. Denies ankle edema. RESPIRATORY: Denies cough, cold, or chest congestion. Denies shortness of breath, difficulty breathing, or wheezing. GASTROINTESTINAL: Denies distention. Denies nausea, vomiting, or diarrhea. Denies blood in vomitus, stools, or per rectum. Denies black, tarry stools. Denies constipation. GENITOURINARY: Denies difficulty urinating, painful urination, burning, frequency, blood in urine, or discharge. FEMALE GENITOURINARY: Denies vaginal bleeding, heavy or abnormal periods, irregular periods. Denies vaginal discharge or odor. MUSCULOSKELETAL: Denies back or neck pain or stiffness. Denies joint pain or swelling. SKIN: Denies rash, lesions or sores. HEMATOLOGIC : Denies easy bruising or bleeding. LYMPHATIC: Denies swollen, enlarged glands. NEUROLOGICAL: Denies confusion or altered mental status. Denies passing out or loss of consciousness. Denies dizziness or lightheadedness. Denies headache. Denies weakness or paralysis or loss of use of either side. Denies problems with gait or speech. Denies sensory loss, numbness, or tingling. Denies seizures. PSYCHIATRIC: Denies anxiety or stress. Denies depression, suicidal ideation, or homicidal ideation. ALL OTHER SYSTEMS REVIEWED AND NEGATIVE. PHYSICAL EXAMINATION: GENERAL: Well-appearing, well-nourished and in no acute distress. HEAD: Atraumatic, normocephalic. EYES: Pupils equal round and reactive to light, extraocular movements intact, conjunctiva are normal. ENT: Nares patent, oropharynx clear without exudates. Moist mucous membranes. NECK: Normal range of motion, supple without lymphadenopathy LUNGS: Breath sounds clear to auscultation bilaterally and equal. No wheezes rales or rhonchi. HEART: Regular rate and rhythm without murmurs ABDOMEN: Soft, nontender, nondistended abdomen. No guarding, no rebound. No masses appreciated. Examination of genitals-deferred Musculoskeletal: Normal range of motion, no pitting or edema. No cyanosis. NEUROLOGICAL: Cranial nerves grossly intact. Normal speech, normal gait. Normal sensory, motor exams PSYCH: Normal mood, normal affect. SKIN: Warm, Dry, normal turgor, no rashes or lesions noted. Dictation was performed using [employer] voice recognition software TRAVEL OUTSIDE OF THE [place] IN LAST 30 DAYS: No - HPI Severity: Severe Pain Level: 3 - Related Data Allergies/Adverse Reactions: No Known Allergies Allergy (Verified 11/01/17 12:59) Past Medical History - General Information source: Patient - Social History Smoking Status: Never Smoker Chew tobacco use (# tins/day): No Frequency of alcohol use: None Drug Abuse: None Family History: CVA, DM - Mother, Hypertension Patient has suicidal ideation: No Patient has homicidal ideation: No Endocrine Medical History: Reports: Hx Diabetes Mellitus Type 1 - w/neuropathy Renal/ Medical History: Denies: Hx Peritoneal Dialysis Psychiatric Medical History: Reports: Hx Bipolar Disorder, Hx Depression - Immunizations Hx Diphtheria, Pertussis, Tetanus Vaccination: No Review of Systems - Review of Systems Notes: Dictated Physical Exam - Vital signs Vitals: Temp Pulse Resp BP Pulse Ox 98.6 F 136 H 21 H 113/63 99 11/01/17 13:03 11/01/17 13:03 11/01/17 13:03 11/01/17 13:03 11/01/17 13:03 - Notes Notes: Dictated Course - Re-evaluation Re-evalutation: 11/01/17 16:13 Started on IV fluid and IV insulin - Vital Signs Vital signs: Temp Pulse Resp BP Pulse Ox 98.2 F 110 H 18 112/68 100 11/01/17 15:41 11/01/17 15:41 11/01/17 15:41 11/01/17 15:41 11/01/17 15:41 - Laboratory Result Diagrams: 11/01/17 14:02 11/01/17 14:02 Laboratory results interpreted by me: 11/01/17 11/01/17 11/01/17 14:02 14:02 14:02 Seg Neutrophils % 79.0 H VBG pH 7.28 L VBG pCO2 25.5 L VBG HCO3 11.8 L Carbon Dioxide 13 L Anion Gap 30 H Glucose 366 H POC Glucose Calcium 10.8 H Phosphorus 4.9 H Direct Bilirubin 0.5 H Alkaline Phosphatase 150 H Total Protein 8.9 H Albumin 5.1 H 11/01/17 15:38 Seg Neutrophils % VBG pH VBG pCO2 VBG HCO3 Carbon Dioxide Anion Gap Glucose POC Glucose 220 H Calcium Phosphorus Direct Bilirubin Alkaline Phosphatase Total Protein Albumin - Diagnostic Test Radiology reviewed: Reports reviewed - Chest x-ray reported by radiologist as unremarkable Critical Care Note - Critical Care Note Total time excluding time spent on procedures (mins): 30 Comments: Management of diabetic ketoacidosis Discharge - Discharge Clinical Impression: Diabetic ketoacidosis Qualifiers: Diabetes mellitus type: type 1 Diabetes mellitus complication detail: without coma Qualified Code(s): E10.10 - Type 1 diabetes mellitus with ketoacidosis without coma Condition: Stable Disposition: ADMITTED INPATIENT Admitting Provider: Hospitalist Unit Admitted: Telemetry
[2017-11-01] MEDS ORDERED: INSULIN REG, HUMAN 100 UNIT/ML 3 ML VIAL (PYX) ONE (16:28)
[2017-11-01] MEDS ORDERED: PROMETHAZINE HCL 25 MG TABLET PO PRN (16:32)
[2017-11-01] MEDS ORDERED: ONDANSETRON HCL INJ/PF 4 MG/2 ML SDV IV PRN (16:32)
[2017-11-01] MEDS ORDERED: DEXTROSE 5%-NORMAL SALINE 1,000 ML IV PRN (16:36)
--- NOTE | 2017-11-01 17:06 | PDOC H&P ---
History of Present Illness Admission Date/PCP: 11/01/17 16:21 History of Present Illness: DAVID FARIAS is a 22 year old black female patient who is a known case of insulin-dependent diabetes mellitus presented with chief complaint of nausea, vomiting and generalized body weakness. Her blood work shows hyperglycemia blood glucose of 336, acidosis with pH of 7.28, elevated anion gap of 70. Patient claims she has been on Lantus at night 30 units and Humalog during the daytime. She insisted that she has been taking her insulin regularly and the only dooe-gtd-prcybua medication she took is Tylenol. No fever, chills, chest pain, cough, palpitation or diaphoresis. No abdominal pain or diarrhea. No headache, dizziness or or blurry vision. Past Medical History Endocrine Medical History: Reports: Diabetes Mellitus Type 1 - w/neuropathy Psychiatric Medical History: Reports: Bipolar Disorder, Depression Past Surgical History Past Surgical History: Reports: None Social History Smoking Status: Never Smoker Frequency of Alcohol Use: None Hx Recreational Drug Use: No Drugs: None Hx Prescription Drug Abuse: No - Advance Directive Resuscitation Status: Full Code Family History Family History: CVA, DM - Mother, Hypertension Parental Family History Reviewed: Yes Children Family History Reviewed: Yes Sibling(s) Family History Reviewed.: Yes Medication/Allergy Home Medications: Insulin Aspart [Novolog Flexpen] 10 units SQ MEALS 30 Days #2 insuln.pen Gabapentin [Neurontin 400 mg Capsule] 400 mg PO Q8 11/01/17 Allergies/Adverse Reactions: No Known Allergies Allergy (Verified 11/01/17 12:59) Review of Systems Constitutional: PRESENT: as per HPI Eyes: PRESENT: as per HPI Cardiovascular: PRESENT: as per HPI Respiratory: PRESENT: as per HPI Gastrointestinal: PRESENT: as per HPI Neurological: PRESENT: as per HPI Physical Exam Vital Signs: Temp Pulse Resp BP Pulse Ox 98.2 F 110 H 14 126/90 H 100 11/01/17 15:41 11/01/17 15:41 11/01/17 16:23 11/01/17 16:23 11/01/17 16:23 General appearance: PRESENT: no acute distress, well-developed, well-nourished Head exam: PRESENT: atraumatic, normocephalic Eye exam: PRESENT: conjunctiva pink, EOMI, PERRLA. ABSENT: scleral icterus Ear exam: PRESENT: normal external ear exam Mouth exam: PRESENT: dry mucosa, tongue midline Neck exam: ABSENT: carotid bruit, JVD, lymphadenopathy, thyromegaly Respiratory exam: PRESENT: clear to auscultation yajaira. ABSENT: rales, rhonchi, wheezes Cardiovascular exam: PRESENT: RRR. ABSENT: diastolic murmur, rubs, systolic murmur Pulses: PRESENT: normal dorsalis pedis pul Vascular exam: PRESENT: normal capillary refill GI/Abdominal exam: PRESENT: normal bowel sounds, soft. ABSENT: distended, guarding, mass, organolmegaly, rebound, tenderness Rectal exam: PRESENT: deferred Extremities exam: PRESENT: full ROM. ABSENT: calf tenderness, clubbing, pedal edema Neurological exam: PRESENT: alert, awake, oriented to person, oriented to place , oriented to time, oriented to situation, CN II-XII grossly intact. ABSENT: motor sensory deficit Psychiatric exam: PRESENT: appropriate affect, normal mood. ABSENT: homicidal ideation, suicidal ideation Skin exam: PRESENT: dry, intact, warm. ABSENT: cyanosis, rash Results Impressions: Chest X-Ray 11/01/17 13:36 IMPRESSION: NO ACUTE RADIOGRAPHIC FINDING IN THE CHEST. Assessment & Plan - Diagnosis (1) Euglycemic decay Is this a current diagnosis for this admission?: Yes Plan: Admit to IMCU. D5W half saline at a rate of 1 50 mL/h. Insulin drip Accu-Chek every an hour. BMP every 4 hours (2) Bipolar disorder Qualifiers: Current bipolar episode type: depressed Is this a current diagnosis for this admission?: Yes Plan: Continue her home medications. - Time Time Spent: 30 to 50 Minutes
[2017-11-01 17:39] LABS: ALANINE AMINOTRANSFERASE 26 U/L (9-52); ALBUMIN 3.8 g/dL (3.5-5.0); ALKALINE PHOSPHATASE 110 U/L (38-126); ANION GAP 19 (5-19); ASPARTATE AMINO TRANSFERASE 19 U/L (14-36); BILIRUBIN,DIRECT 0.4 mg/dL (0.0-0.4); BILIRUBIN,TOTAL 0.5 mg/dL (0.2-1.3); BLOOD UREA NITROGEN 11 mg/dL (7-20); CALCIUM 9.5 mg/dL (8.4-10.2); CARBON DIOXIDE 16 mmol/L (22-30); CHLORIDE 108 mmol/L (98-107); GLUCOSE 167 mg/dL (75-110); POTASSIUM 4.4 mmol/L (3.6-5.0); SODIUM 143.3 mmol/L (137-145); TOTAL PROTEIN 6.5 g/dL (6.3-8.2)
[2017-11-01] MEDS ORDERED: ENOXAPARIN SODIUM INJ 40 MG/0.4 ML DISP.SYRIN SUBCUT ONE (18:00)
[2017-11-01 18:47] LABS: ABSOLUTE BASOPHILS # (AUTO) 0.1 10^3/uL (0.0-0.2); ABSOLUTE LYMPHOCYTES (AUTO) 3.4 10^3/uL (0.5-4.7); ABSOLUTE MONOCYTES (AUTO) 1.5 10^3/uL (0.1-1.4); ABSOLUTE NEUT (AUTO) 7.2 10^3/uL (1.7-8.2); BASOPHILS % (AUTO) 0.9 % (0-2); EOSINOPHILS % (AUTO) 0.2 % (0-6); HEMATOCRIT 33.4 % (36.0-47.0); LYMPHOCYTES % (AUTO) 28.1 % (13-45); MEAN CORPUSCULAR HEMOGLOBIN 29.2 pg (27.0-33.4); MEAN CORPUSCULAR HGB CONC 33.6 g/dL (32.0-36.0); MEAN CORPUSCULAR VOLUME 87 fl (80-97); MONOCYTES % (AUTO) 12.2 % (3-13); PLATELET COUNT 350 10^3/uL (150-450); RED BLOOD COUNT 3.85 10^6/uL (3.72-5.28); RED CELL DISTRIBUTION WIDTH 13.2 % (11.5-14.0); SEGMENTED NEUTROPHILS % (AUTO) 58.6 % (42-78); TOTAL CELLS COUNTED % (AUTO) 100 %; WHITE BLOOD COUNT 12.2 10^3/uL (4.0-10.5)
[2017-11-01 18:48] LABS: HEMOGLOBIN 11.2 g/dL (12.0-15.5)
[2017-11-01 19:17] LABS: APPEARANCE,URINE SLIGHTLY-CLOUDY; BILIRUBIN,URINE NEGATIVE (NEGATIVE); COLOR,URINE YELLOW; GLUCOSE, URINE >=500 mg/dL (NEGATIVE); KETONES,URINE 80 mg/dL (NEGATIVE); LEUKOCYTE ESTERASE,URINE NEGATIVE (NEGATIVE); NITRITE,URINE NEGATIVE (NEGATIVE); PROTEIN,URINE 30 mg/dL (NEGATIVE); URINE SPECIFIC GRAVITY 1.022; UROBILINOGEN,URINE NEGATIVE mg/dL (<2.0)
[2017-11-01 20:55] LABS: ANION GAP 15 (5-19); BLOOD UREA NITROGEN 8 mg/dL (7-20); CALCIUM 8.8 mg/dL (8.4-10.2); CARBON DIOXIDE 18 mmol/L (22-30); CHLORIDE 110 mmol/L (98-107); GLUCOSE 82 mg/dL (75-110); POTASSIUM 3.8 mmol/L (3.6-5.0); SODIUM 143.2 mmol/L (137-145)
[2017-11-01] MEDS ORDERED: DEXTROSE 50%-WATER SYRINGE 25 GM/50 ML DOSE IV PRN (21:07)
[2017-11-01] MEDS ORDERED: DEXTROSE 40% GEL 15 GM TUBE X 2 PO PRN (21:07)
[2017-11-01] MEDS ORDERED: INSULIN, REGULAR 100 UNIT/100 ML NORMAL SALINE IV PRN ×2 (21:07)
[2017-11-01] MEDS ORDERED: DEXTROSE 50%-WATER SYRINGE 12.5 GM/25 ML DOSE IV PRN (21:07)
[2017-11-01] MEDS: DEXTROSE 5%-1/2 NORMAL SALINE 1,000 ML IV PRN (21:51)
[2017-11-01] MEDS ORDERED: GABAPENTIN 300 MG CAPSULE PO ONE ×2 (22:45)
[2017-11-02 01:17] LABS: ANION GAP 14 (5-19); BLOOD UREA NITROGEN 7 mg/dL (7-20); CALCIUM 8.9 mg/dL (8.4-10.2); CARBON DIOXIDE 20 mmol/L (22-30); CHLORIDE 110 mmol/L (98-107); GLUCOSE 143 mg/dL (75-110); POTASSIUM 3.6 mmol/L (3.6-5.0); SODIUM 144.2 mmol/L (137-145)
[2017-11-02] MEDS: DEXTROSE 5%-1/2 NORMAL SALINE 1,000 ML IV PRN (03:10)
[2017-11-02 05:09] LABS: HEMATOCRIT 32.4 % (36.0-47.0); HEMOGLOBIN 11.1 g/dL (12.0-15.5); MEAN CORPUSCULAR HEMOGLOBIN 29.2 pg (27.0-33.4); MEAN CORPUSCULAR HGB CONC 34.3 g/dL (32.0-36.0); MEAN CORPUSCULAR VOLUME 85 fl (80-97); PLATELET COUNT 314 10^3/uL (150-450); RED CELL DISTRIBUTION WIDTH 12.9 % (11.5-14.0); WHITE BLOOD COUNT 8.8 10^3/uL (4.0-10.5)
[2017-11-02 05:26] LABS: ANION GAP 9 (5-19); BLOOD UREA NITROGEN 5 mg/dL (7-20); CALCIUM 8.6 mg/dL (8.4-10.2); CARBON DIOXIDE 22 mmol/L (22-30); CHLORIDE 110 mmol/L (98-107); GLUCOSE 106 mg/dL (75-110); POTASSIUM 3.2 mmol/L (3.6-5.0); SODIUM 141.3 mmol/L (137-145)
[2017-11-02] MEDS: GABAPENTIN 300 MG CAPSULE PO SCH ×3 (06:42→22:46)
[2017-11-02] MEDS ORDERED: POTASSIUM CHLORIDE 10 MEQ CAPSULE.ER PO ONE (07:00)
[2017-11-02] MEDS: INSULIN LISPRO 100 UNIT/ML 3 ML VIAL SUBCUT SCH ×3 (09:00→17:34)
[2017-11-02] MEDS: ENOXAPARIN SODIUM INJ 40 MG/0.4 ML DISP.SYRIN SUBCUT SCH (09:03)
[2017-11-02 09:56] LABS: ANION GAP 15 (5-19); BLOOD UREA NITROGEN 4 mg/dL (7-20); CALCIUM 8.8 mg/dL (8.4-10.2); CARBON DIOXIDE 18 mmol/L (22-30); CHLORIDE 107 mmol/L (98-107); GLUCOSE 299 mg/dL (75-110); SODIUM 139.9 mmol/L (137-145)
[2017-11-02 10:23] LABS: POTASSIUM 4.2 mmol/L (3.6-5.0)
--- NOTE | 2017-11-02 12:45 | PDOC PROGRESS REPORT ---
Subjective Progress Note for:: 11/02/17 Subjective:: This is 22 years old black female patient admitted yesterday in euglycemic DKA. Patient has been treated with insulin drip IV hydration and electrolyte replacement. Patient is noncompliant with her insulin and her diabetes uncontrolled evidenced by hemoglobin A1c of 10.6. Patient is counseled and advised that to comply with her medications. Reason For Visit: EUGLYCEMIC DKA Physical Exam Vital Signs: Temp Pulse Resp BP Pulse Ox 97.5 F 120 H 12 113/61 100 11/02/17 07:23 11/02/17 07:23 11/02/17 07:23 11/02/17 07:23 11/02/17 07:23 Intake & Output 11/01/17 11/02/17 11/03/17 06:59 06:59 06:59 Intake Total 1734 Balance 1734 Weight 52.9 kg General appearance: PRESENT: no acute distress, well-developed, well-nourished Head exam: PRESENT: atraumatic, normocephalic Eye exam: PRESENT: conjunctiva pink, EOMI, PERRLA. ABSENT: scleral icterus Ear exam: PRESENT: normal external ear exam Mouth exam: PRESENT: moist, tongue midline Neck exam: ABSENT: carotid bruit, JVD, lymphadenopathy, thyromegaly Respiratory exam: PRESENT: clear to auscultation yajaira. ABSENT: rales, rhonchi, wheezes Cardiovascular exam: PRESENT: RRR. ABSENT: diastolic murmur, rubs, systolic murmur Pulses: PRESENT: normal dorsalis pedis pul Vascular exam: PRESENT: normal capillary refill GI/Abdominal exam: PRESENT: normal bowel sounds, soft. ABSENT: distended, guarding, mass, organolmegaly, rebound, tenderness Rectal exam: PRESENT: deferred Extremities exam: PRESENT: full ROM. ABSENT: calf tenderness, clubbing, pedal edema Neurological exam: PRESENT: alert, awake, oriented to person, oriented to place , oriented to time, oriented to situation, CN II-XII grossly intact. ABSENT: motor sensory deficit Psychiatric exam: PRESENT: appropriate affect, normal mood. ABSENT: homicidal ideation, suicidal ideation Skin exam: PRESENT: dry, intact, warm. ABSENT: cyanosis, rash Results Laboratory Results: 11/02/17 04:48 11/02/17 09:06 0611/01/17 11/01/17 17:00 17:00 18:30 WBC Cancelled 12.2 H RBC Cancelled 3.85 Hgb Cancelled 11.2 L D Hct Cancelled 33.4 L MCV Cancelled 87 MCH Cancelled 29.2 MCHC Cancelled 33.6 RDW Cancelled 13.2 Plt Count Cancelled 350 Seg Neutrophils % Cancelled 58.6 Lymphocytes % Cancelled 28.1 Monocytes % Cancelled 12.2 Eosinophils % Cancelled 0.2 Basophils % Cancelled 0.9 Absolute Neutrophils Cancelled 7.2 Absolute Lymphocytes Cancelled 3.4 Absolute Monocytes Cancelled 1.5 H Absolute Eosinophils Cancelled 0.0 Absolute Basophils Cancelled 0.1 Sodium 143.3 Potassium 4.4 Chloride 108 H Carbon Dioxide 16 L Anion Gap 19 BUN 11 Creatinine 0.49 L Est GFR ( Amer) > 60 Est GFR (Non-Af Amer) > 60 Glucose 167 H Calcium 9.5 Total Bilirubin 0.5 AST 19 ALT 26 Alkaline Phosphatase 110 Total Protein 6.5 Albumin 3.8 Urine Color Urine Appearance Urine pH Ur Specific [place] Urine Protein Urine Glucose (UA) Urine Ketones Urine Blood Urine Nitrite Ur Leukocyte Esterase Urine WBC (Auto) Urine RBC (Auto) 11/01/17 11/01/17 11/02/17 18:35 20:33 00:50 WBC RBC Hgb Hct MCV MCH MCHC RDW Plt Count Seg Neutrophils % Lymphocytes % Monocytes % Eosinophils % Basophils % Absolute Neutrophils Absolute Lymphocytes Absolute Monocytes Absolute Eosinophils Absolute Basophils Sodium 143.2 144.2 Potassium 3.8 3.6 Chloride 110 H 110 H Carbon Dioxide 18 L 20 L Anion Gap 15 14 BUN 8 7 Creatinine 0.42 L 0.40 L Est GFR ( Amer) > 60 > 60 Est GFR (Non-Af Amer) > 60 > 60 Glucose 82 143 H Calcium 8.8 8.9 Total Bilirubin AST ALT Alkaline Phosphatase Total Protein Albumin Urine Color YELLOW Urine Appearance SLIGHTLY-CLOUDY Urine pH 5.0 Ur Specific [place] 1.022 Urine Protein 30 H Urine Glucose (UA) >=500 H Urine Ketones 80 H Urine Blood NEGATIVE Urine Nitrite NEGATIVE Ur Leukocyte Esterase NEGATIVE Urine WBC (Auto) 2 Urine RBC (Auto) 0 11/02/17 11/02/17 11/02/17 04:48 04:48 09:06 WBC 8.8 RBC 3.80 Hgb 11.1 L Hct 32.4 L MCV 85 MCH 29.2 MCHC 34.3 RDW 12.9 Plt Count 314 Seg Neutrophils % Lymphocytes % Monocytes % Eosinophils % Basophils % Absolute Neutrophils Absolute Lymphocytes Absolute Monocytes Absolute Eosinophils Absolute Basophils Sodium 141.3 139.9 Potassium 3.2 L 4.2 D Chloride 110 H 107 Carbon Dioxide 22 18 L Anion Gap 9 15 BUN 5 L 4 L Creatinine 0.36 L 0.49 L Est GFR ( Amer) > 60 > 60 Est GFR (Non-Af Amer) > 60 > 60 Glucose 106 299 H Calcium 8.6 8.8 Total Bilirubin AST ALT Alkaline Phosphatase Total Protein Albumin Urine Color Urine Appearance Urine pH Ur Specific [place] Urine Protein Urine Glucose (UA) Urine Ketones Urine Blood Urine Nitrite Ur Leukocyte Esterase Urine WBC (Auto) Urine RBC (Auto) Impressions: Chest X-Ray 11/01/17 13:36 IMPRESSION: NO ACUTE RADIOGRAPHIC FINDING IN THE CHEST. Assessment & Plan - Diagnosis (1) Euglycemic decay Is this a current diagnosis for this admission?: Yes Plan: Currently patient is out of DKA. Has been started on long-acting insulin Lantus and Humalog for sliding scale. (2) Bipolar disorder Qualifiers: Current bipolar episode type: depressed Is this a current diagnosis for this admission?: Yes Plan: Continue her home medications. (3) Uncontrolled diabetes mellitus Qualifiers: Diabetes mellitus type: type 1 Is this a current diagnosis for this admission?: Yes Plan: Patient counseled and advised that to comply with her insulin and follow-up appointment with her primary doctor.
[2017-11-02 14:46] LABS: ANION GAP 13 (5-19); BLOOD UREA NITROGEN 5 mg/dL (7-20); CALCIUM 8.8 mg/dL (8.4-10.2); CARBON DIOXIDE 20 mmol/L (22-30); CHLORIDE 108 mmol/L (98-107); GLUCOSE 158 mg/dL (75-110); POTASSIUM 3.9 mmol/L (3.6-5.0); SODIUM 141.2 mmol/L (137-145)
[2017-11-02] MEDS: TRAMADOL HCL 50 MG TABLET PO PRN ×2 (14:58→22:46)
[2017-11-02] MEDS: INSULIN LISPRO 100 UNIT/ML 3 ML VIAL SUBCUT PRN (17:34)
[2017-11-02 17:39] LABS: ANION GAP 12 (5-19); BLOOD UREA NITROGEN 7 mg/dL (7-20); CALCIUM 8.5 mg/dL (8.4-10.2); CARBON DIOXIDE 22 mmol/L (22-30); CHLORIDE 109 mmol/L (98-107); GLUCOSE 233 mg/dL (75-110); POTASSIUM 3.9 mmol/L (3.6-5.0); SODIUM 142.6 mmol/L (137-145)
[2017-11-02 21:16] LABS: ANION GAP 16 (5-19); BLOOD UREA NITROGEN 8 mg/dL (7-20); CALCIUM 9.2 mg/dL (8.4-10.2); CARBON DIOXIDE 22 mmol/L (22-30); CHLORIDE 106 mmol/L (98-107); GLUCOSE 190 mg/dL (75-110); POTASSIUM 3.9 mmol/L (3.6-5.0); SODIUM 143.5 mmol/L (137-145)
[2017-11-02] MEDS ORDERED: INSULIN GLARGINE,HUM.REC.ANLOG 300 UNIT/3 ML INSULN.PEN SUBCUT SCH (22:00)
[2017-11-03 01:05] LABS: ANION GAP 13 (5-19); BLOOD UREA NITROGEN 7 mg/dL (7-20); CALCIUM 9.3 mg/dL (8.4-10.2); CARBON DIOXIDE 23 mmol/L (22-30); CHLORIDE 108 mmol/L (98-107); GLUCOSE 186 mg/dL (75-110); POTASSIUM 3.6 mmol/L (3.6-5.0); SODIUM 144.4 mmol/L (137-145)
[2017-11-03 05:27] LABS: ANION GAP 12 (5-19); BLOOD UREA NITROGEN 6 mg/dL (7-20); CARBON DIOXIDE 26 mmol/L (22-30); CHLORIDE 103 mmol/L (98-107); GLUCOSE 338 mg/dL (75-110); POTASSIUM 3.7 mmol/L (3.6-5.0); SODIUM 140.8 mmol/L (137-145)
[2017-11-03] MEDS: GABAPENTIN 300 MG CAPSULE PO SCH (06:15)
[2017-11-03] MEDS: TRAMADOL HCL 50 MG TABLET PO PRN (08:22)
[2017-11-03] MEDS: INSULIN LISPRO 100 UNIT/ML 3 ML VIAL SUBCUT SCH ×2 (08:22→12:20)
[2017-11-03] MEDS: INSULIN LISPRO 100 UNIT/ML 3 ML VIAL SUBCUT PRN (08:22)
[2017-11-03] MEDS: ENOXAPARIN SODIUM INJ 40 MG/0.4 ML DISP.SYRIN SUBCUT SCH (08:23)
[2017-11-03 09:52] LABS: ANION GAP 16 (5-19); BLOOD UREA NITROGEN 7 mg/dL (7-20); CALCIUM 8.9 mg/dL (8.4-10.2); CARBON DIOXIDE 21 mmol/L (22-30); CHLORIDE 98 mmol/L (98-107); POTASSIUM 3.8 mmol/L (3.6-5.0); SODIUM 135.2 mmol/L (137-145)
[2017-11-03 10:05] LABS: GLUCOSE 485 mg/dL (75-110)
--- NOTE | 2017-11-03 11:52 | PDOC DISCHARGE SUMMARY ---
General - Admit/Disc Date/PCP Admission Date/Primary Care Provider: 11/01/17 16:21 Discharge Date: 11/03/17 - Discharge Diagnosis (1) Euglycemic decay Is this a current diagnosis for this admission?: Yes (2) Bipolar disorder Is this a current diagnosis for this admission?: Yes (3) Uncontrolled diabetes mellitus Is this a current diagnosis for this admission?: Yes - Additional Information Resuscitation Status: Full Code Prescriptions: Insulin Glargine,Hum.rec.anlog [Lantus Insulin 100 Unit/mL] 30 unit SUBCUT QHS # 2 insuln.pen Insulin Aspart [Novolog Flexpen] 10 units SQ MEALS 30 Days #2 insuln.pen Tramadol HCl 50 mg PO Q12HP PRN #14 tablet PRN Reason: Home Medications: Gabapentin [Neurontin 400 mg Capsule] 300 mg PO Q8 11/01/17 Insulin Aspart [Novolog Flexpen] 10 units SQ MEALS 30 Days #2 insuln.pen Insulin Glargine,Hum.rec.anlog [Lantus Insulin 100 Unit/mL] 30 unit SUBCUT QHS # 2 insuln.pen 11/03/17 Tramadol HCl 50 mg PO Q12HP PRN #14 tablet 11/03/17 History of Present Illness History of Present Illness: DAVID FARIAS is a 22 year old black female patient who is a known case of insulin-dependent diabetes mellitus presented with chief complaint of nausea, vomiting and generalized body weakness. Her blood work shows hyperglycemia blood glucose of 336, acidosis with pH of 7.28, elevated anion gap of 70. Patient claims she has been on Lantus at night 30 units and Humalog during the daytime. She insisted that she has been taking her insulin regularly and the only ggtw-duo-suvsklm medication she took is Tylenol. No fever, chills, chest pain, cough, palpitation or diaphoresis. No abdominal pain or diarrhea. No headache, dizziness or or blurry vision. Hospital Course Hospital Course: This is a 22 years old black female patient admitted in euglycemic DKA. Patient has been managed aggressive hydration, and insulin drip. As her anion gap closed and patient able to eat and tolerate the insulin drip was stopped and patient switched to subcutaneous long-acting and short-acting insulin. Patient has history of recurrent DKA during her last admission her A1c was 14 and during this admission it is 10.6 a little bit better. This morning I evaluated the patient she is resting in bed she is able to eat and tolerate well and her last Accu-Chek was 175. I refilled her NovoLog and Lantus and I send her home also with tramadol 50 mg twice daily as needed. Also increase the dose of her Lantus from 20 units subcu nightly to 30 units nightly. I reinforced diabetic education for her. She is advised also to keep up her appointment with her primary care physician. Physical Exam Vital Signs: Temp Pulse Resp BP Pulse Ox 98.3 F 99 12 122/79 99 11/03/17 07:07 11/03/17 07:07 11/03/17 07:07 11/03/17 07:07 11/03/17 07:07 Intake & Output 11/02/17 11/03/17 11/04/17 06:59 06:59 06:59 Intake Total 1734 958 Balance 1734 958 Weight 52.9 kg 52.7 kg General appearance: PRESENT: no acute distress, well-developed, well-nourished Head exam: PRESENT: atraumatic, normocephalic Eye exam: PRESENT: conjunctiva pink, EOMI, PERRLA. ABSENT: scleral icterus Ear exam: PRESENT: normal external ear exam Mouth exam: PRESENT: moist, tongue midline Neck exam: ABSENT: carotid bruit, JVD, lymphadenopathy, thyromegaly Respiratory exam: PRESENT: clear to auscultation yajaira. ABSENT: rales, rhonchi, wheezes Cardiovascular exam: PRESENT: RRR. ABSENT: diastolic murmur, rubs, systolic murmur Pulses: PRESENT: normal dorsalis pedis pul Vascular exam: PRESENT: normal capillary refill GI/Abdominal exam: PRESENT: normal bowel sounds, soft. ABSENT: distended, guarding, mass, organolmegaly, rebound, tenderness Rectal exam: PRESENT: deferred Extremities exam: PRESENT: full ROM. ABSENT: calf tenderness, clubbing, pedal edema Neurological exam: PRESENT: alert, awake, oriented to person, oriented to place , oriented to time, oriented to situation, CN II-XII grossly intact. ABSENT: motor sensory deficit Psychiatric exam: PRESENT: appropriate affect, normal mood. ABSENT: homicidal ideation, suicidal ideation Skin exam: PRESENT: dry, intact, warm. ABSENT: cyanosis, rash Results Laboratory Results: 11/02/17 04:48 11/03/17 08:45 11/02/17 11/02/17 11/02/17 13:29 17:11 20:45 Sodium 141.2 142.6 143.5 Potassium 3.9 3.9 3.9 Chloride 108 H 109 H 106 Carbon Dioxide 20 L 22 22 Anion Gap 13 12 16 BUN 5 L 7 8 Creatinine 0.40 L 0.43 L 0.48 L Est GFR ( Amer) > 60 > 60 > 60 Est GFR (Non-Af Amer) > 60 > 60 > 60 Glucose 158 H 233 H 190 H Calcium 8.8 8.5 9.2 11/03/17 11/03/17 11/03/17 00:44 04:55 08:45 Sodium 144.4 140.8 135.2 L Potassium 3.6 3.7 3.8 Chloride 108 H 103 98 Carbon Dioxide 23 26 21 L Anion Gap 13 12 16 BUN 7 6 L 7 Creatinine 0.36 L 0.34 L 0.40 L Est GFR ( Amer) > 60 > 60 > 60 Est GFR (Non-Af Amer) > 60 > 60 > 60 Glucose 186 H 338 H 485 H* Calcium 9.3 9.0 8.9 Impressions: Chest X-Ray 11/01/17 13:36 IMPRESSION: NO ACUTE RADIOGRAPHIC FINDING IN THE CHEST. Qualifiers - * PATIENT BEING DISCHARGED WITH ANY OF THE FOLLOWING DIAGNOSIS: No
[2017-11-03 12:26] VITALS: BP 113/74
== END 2017-11-03 13:08 | disposition home or self-care (01) | DRG 639 ==
LOC: ER 12:58 → EH 16:21 → 3N 19:13
PROVIDERS: ADMIT Internal Medicine; ATTEND Internal Medicine
DX: E10.10 Type 1 diabetes mellitus with ketoacidosis without coma (principal); E10.40 Type 1 diabetes mellitus with diabetic neuropathy, unspecified; F31.9 Bipolar disorder, unspecified; Z79.4 Long term (current) use of insulin; Z82.49 Family history of ischemic heart disease and other diseases of the circulatory system; Z83.3 Family history of diabetes mellitus; Z91.14 Patient's other noncompliance with medication regimen
CPT/HCPCS: 36415; 71046; 80048; 80053; 81001; 81025; 82803; 82962; 83036; 83735; 84100; 85025; 85027; 96360; 99291; J1815; J7030

== ENCOUNTER 2017-12-02 14:06 | Inpatient (IN) | payer MEDICAID ==
[2017-12-02] MEDS ORDERED: INSULIN REG, HUMAN 100 UNIT/ML 3 ML VIAL (PYX) IV ONE (14:35)
--- NOTE | 2017-12-02 14:37 | ER Document Report ---
ED Blood Sugar Problem - General Chief Complaint: High Blood Sugar Stated Complaint: WEAKNESS Time Seen by Provider: 12/02/17 14:32 Mode of Arrival: Ambulatory Information source: Patient Notes: 22 years old female with a type 1 diabetes, on insulin, presents today saying has been in for 2-3 days having generalized weakness nauseous. An elevated blood sugar. Denies any headache dizziness earache sore throat cough chest pain or shortness of breath. Denies any abdominal pain dysuria frequency urgency. Denies any vaginal discharge. TRAVEL OUTSIDE OF THE [place] IN LAST 30 DAYS: No - Related Data Allergies/Adverse Reactions: No Known Allergies Allergy (Verified 12/02/17 14:16) Past Medical History - Social History Smoking Status: Never Smoker Chew tobacco use (# tins/day): No Frequency of alcohol use: None Drug Abuse: None Family History: CVA, DM - Mother, Hypertension Patient has suicidal ideation: No Patient has homicidal ideation: No Endocrine Medical History: Reports: Hx Diabetes Mellitus Type 1 - w/neuropathy DKA Renal/ Medical History: Denies: Hx Peritoneal Dialysis Psychiatric Medical History: Reports: Hx Bipolar Disorder, Hx Depression - Immunizations Hx Diphtheria, Pertussis, Tetanus Vaccination: No Physical Exam - Vital signs Vitals: Temp Pulse Resp BP Pulse Ox 98.3 F 120 H 16 105/54 L 100 12/02/17 14:13 12/02/17 14:13 12/02/17 14:13 12/02/17 14:13 12/02/17 14:13 Course - Vital Signs Vital signs: Temp Pulse Resp BP Pulse Ox 98.3 F 120 H 16 105/54 L 100 12/02/17 14:13 12/02/17 14:13 12/02/17 14:13 12/02/17 14:13 12/02/17 14:13
--- NOTE | 2017-12-02 14:39 | ER Document Report ---
ED Medical Screen (RME) - General Chief Complaint: High Blood Sugar Stated Complaint: WEAKNESS Time Seen by Provider: 12/02/17 14:32 Notes: 22 years old female with a type 1 diabetes, on insulin, presents today saying has been in for 2-3 days having generalized weakness nauseous. An elevated blood sugar. Denies any headache dizziness earache sore throat cough chest pain or shortness of breath. Denies any abdominal pain dysuria frequency urgency. Denies any vaginal discharge. TRAVEL OUTSIDE OF THE [place] IN LAST 30 DAYS: No - Related Data Allergies/Adverse Reactions: No Known Allergies Allergy (Verified 12/02/17 14:16) Past Medical History - Social History Chew tobacco use (# tins/day): No Frequency of alcohol use: None Drug Abuse: None Family history: Reviewed & Not Pertinent Endocrine Medical History: Reports: Hx Diabetes Mellitus Type 1 - w/neuropathy DKA Renal/ Medical History: Denies: Hx Peritoneal Dialysis Psychiatric Medical History: Reports: Hx Bipolar Disorder, Hx Depression - Immunizations Hx Diphtheria, Pertussis, Tetanus Vaccination: No History of Influenza Vaccine for 02/2017 - 07/2017 Season: Unknown Physical Exam - Vital signs Vitals: Temp Pulse Resp BP Pulse Ox 98.3 F 120 H 16 105/54 L 100 12/02/17 14:13 12/02/17 14:13 12/02/17 14:13 12/02/17 14:13 12/02/17 14:13 Course - Vital Signs Vital signs: Temp Pulse Resp BP Pulse Ox 98.3 F 120 H 16 105/54 L 100 12/02/17 14:13 12/02/17 14:13 12/02/17 14:13 12/02/17 14:13 12/02/17 14:13
[2017-12-02 15:02] LABS: ABSOLUTE BASOPHILS # (AUTO) 0.1 10^3/uL (0.0-0.2); ABSOLUTE MONOCYTES (AUTO) 0.8 10^3/uL (0.1-1.4); ABSOLUTE NEUT (AUTO) 6.6 10^3/uL (1.7-8.2); BASOPHILS % (AUTO) 0.6 % (0-2); EOSINOPHILS % (AUTO) 0.2 % (0-6); LYMPHOCYTES % (AUTO) 21.3 % (13-45); MEAN CORPUSCULAR HEMOGLOBIN 29.5 pg (27.0-33.4); MEAN CORPUSCULAR HGB CONC 33.4 g/dL (32.0-36.0); MEAN CORPUSCULAR VOLUME 89 fl (80-97); MONOCYTES % (AUTO) 8.7 % (3-13); PLATELET COUNT 337 10^3/uL (150-450); RED BLOOD COUNT 4.41 10^6/uL (3.72-5.28); RED CELL DISTRIBUTION WIDTH 13.7 % (11.5-14.0); SEGMENTED NEUTROPHILS % (AUTO) 69.2 % (42-78); TOTAL CELLS COUNTED % (AUTO) 100 %; WHITE BLOOD COUNT 9.5 10^3/uL (4.0-10.5)
[2017-12-02] MEDS ORDERED: NORMAL SALINE 1000 ML 1,000 ML IV ONE (15:03)
[2017-12-02 15:05] LABS: VENOUS BLOOD HCO3 10.8 mmol/L (20-32); VENOUS BLOOD PH 7.24 (7.30-7.42)
[2017-12-02 15:16] LABS: ALANINE AMINOTRANSFERASE 27 U/L (9-52); ALBUMIN 4.4 g/dL (3.5-5.0); ALKALINE PHOSPHATASE 123 U/L (38-126); ASPARTATE AMINO TRANSFERASE 23 U/L (14-36); BILIRUBIN,DIRECT 0.3 mg/dL (0.0-0.4); BILIRUBIN,TOTAL 0.5 mg/dL (0.2-1.3); BLOOD UREA NITROGEN 11 mg/dL (7-20); CALCIUM 9.7 mg/dL (8.4-10.2); CARBON DIOXIDE 11 mmol/L (22-30); CHLORIDE 101 mmol/L (98-107); POTASSIUM 4.6 mmol/L (3.6-5.0); TOTAL PROTEIN 7.7 g/dL (6.3-8.2)
--- NOTE | 2017-12-02 15:16 | ER Document Report ---
ED General - General Chief Complaint: High Blood Sugar Stated Complaint: WEAKNESS Time Seen by Provider: 12/02/17 14:32 TRAVEL OUTSIDE OF THE [place] IN LAST 30 DAYS: No - HPI Notes: Patient is a 22-year-old female with a history of insulin-dependent diabetes and mental health disorder who presents to the ED complaining of elevated blood glucose 2-3 days with generalized weakness and nausea w/o vomiting 1 day. Patient states that she has been taking her insulin as directed. Patient states that she has had a decreased p.o. intake over the last couple days due to a decreased appetite. She still urinating normally and having normal bowel movements. Patient is not sure if she is in DKA, but has been in DKA with sugars in the 400s previously. She denies any drug allergies, smoking, IV drug use. No other concerns or complaints at this time. No other recent illness. Denies any headache, fever, neck pain, changes in vision/speech/mentation/ hearing, URI, sore throat, chest pain, palpitations, syncope, cough, shortness of breath, wheeze, dyspnea, abdominal pain, vomiting/diarrhea, urinary retention , dysuria, hematuria, back pain, loss of control of bowel or bladder, numbness/ tingling, muscle paralysis/weakness, or rash. - Related Data Allergies/Adverse Reactions: No Known Allergies Allergy (Verified 12/02/17 14:16) Past Medical History - Social History Smoking Status: Never Smoker Chew tobacco use (# tins/day): No Frequency of alcohol use: None Drug Abuse: None Family History: CVA, DM - Mother, Hypertension Patient has suicidal ideation: No Patient has homicidal ideation: No Endocrine Medical History: Reports: Hx Diabetes Mellitus Type 1 - w/neuropathy DKA Renal/ Medical History: Denies: Hx Peritoneal Dialysis Psychiatric Medical History: Reports: Hx Bipolar Disorder, Hx Depression - Immunizations Hx Diphtheria, Pertussis, Tetanus Vaccination: No Review of Systems - Review of Systems -: Yes All other systems reviewed and negative Physical Exam - Vital signs Vitals: Temp Pulse Resp BP Pulse Ox 98.3 F 120 H 16 105/54 L 100 12/02/17 14:13 12/02/17 14:13 12/02/17 14:13 12/02/17 14:13 12/02/17 14:13 - Notes Notes: PHYSICAL EXAMINATION: GENERAL: Well-appearing, well-nourished and in no acute distress. HEAD: Atraumatic, normocephalic. EYES: Pupils equal round and reactive to light, extraocular movements intact, sclera anicteric, conjunctiva are normal. ENT: Nares patent and without discharge. oropharynx clear without exudates. No tonsilar hypertrophy or erythema. Moist mucous membranes. NECK: Normal range of motion, supple without lymphadenopathy LUNGS: Breath sounds clear to auscultation bilaterally and equal. No wheezes rales or rhonchi. HEART: Regular rate and rhythm without murmurs, rubs, gallops. ABDOMEN: Soft, nontender, nondistended abdomen. No guarding, no rebound. No masses appreciated. Normal bowel sounds present. No CVA tenderness bilaterally. Musculoskeletal: FROM to passive/active. Strength 5+/5. Extremities: No cyanosis, clubbing, or edema b/l. Peripheral pulses 2+. Capillary refill less than 3 seconds. NEUROLOGICAL: Cranial nerves grossly intact. Normal speech, normal gait. PSYCH: Normal mood, normal affect. SKIN: Warm, Dry, normal turgor, no rashes or lesions noted. Course - Re-evaluation Re-evalutation: 12/02/17 15:29 Patient is a 22-year-old female in DKA. Patient is tachycardic. Fluids have been running for this patient. Patient did receive 6 units of insulin during triage prior to lab results. Patient has an anion gap of 30. We will start an insulin drip at 0.1 U/kg/h. I would usually start at 0.14, the patient received 6 units of insulin recently. I will call hospitalist for admission for DKA. 12/02/17 15:[address] Mitchell who accepted patient to [facility]. - Vital Signs Vital signs: Temp Pulse Resp BP Pulse Ox 98.3 F 120 H 16 105/54 L 100 12/02/17 14:13 12/02/17 14:13 12/02/17 14:13 12/02/17 14:13 12/02/17 14:13 - Laboratory Result Diagrams: 12/02/17 14:49 12/02/17 14:49 Laboratory results interpreted by me: 12/02/17 12/02/17 14:49 14:49 VBG pH 7.24 L VBG pCO2 26.0 L VBG HCO3 10.8 L Carbon Dioxide 11 L Anion Gap 30 H Glucose 507 H* Discharge - Discharge Clinical Impression: DKA (diabetic ketoacidoses) Qualifiers: Diabetes mellitus type: type 1 Diabetes mellitus complication detail: without coma Qualified Code(s): E10.10 - Type 1 diabetes mellitus with ketoacidosis without coma Condition: Stable Disposition: ADMITTED INPATIENT Admitting Provider: Hospitalist - Dr. Mitchell Unit Admitted: [facility]
[2017-12-02 15:21] LABS: SODIUM 141.5 mmol/L (137-145)
[2017-12-02 15:22] LABS: ANION GAP 30 (5-19)
[2017-12-02 15:23] LABS: GLUCOSE 507 mg/dL (75-110)
[2017-12-02] MEDS ORDERED: DEXTROSE 40% GEL 15 GM TUBE PO PRN ×4 (15:25→22:18)
[2017-12-02] MEDS ORDERED: GLUCAGON,HUMAN RECOMB 1 MG INJ IM PRN ×3 (15:25→22:18)
[2017-12-02] MEDS ORDERED: NORMAL SALINE 100 ML with INSULIN REGULAR, HUMAN 100 UNIT IV PRN ×4 (15:25→15:29)
[2017-12-02] MEDS ORDERED: DEXTROSE 50%-WATER 25 GM/50 ML DISP.SYRIN IV PRN ×2 (15:25)
[2017-12-02] MEDS ORDERED: ACETAMINOPHEN 325 MG TABLET PO PRN (16:25)
[2017-12-02] MEDS ORDERED: PROMETHAZINE HCL INJ 25 MG/1 ML VIAL IV PRN (16:25)
[2017-12-02] MEDS ORDERED: TEMAZEPAM 7.5 MG CAPSULE PO PRN (16:25)
[2017-12-02] MEDS ORDERED: IPRATROPIUM/ALBUTEROL 0.5-2.5 MG/3 ML AMPUL NEB PRN (16:25)
[2017-12-02] MEDS ORDERED: MAGNESIUM HYDROXIDE SUSP 30 ML UDCUP PO PRN (16:25)
[2017-12-02] MEDS ORDERED: INSULIN REG, HUMAN 100 UNIT/ML 3 ML VIAL (PYX) ONE (17:13)
--- NOTE | 2017-12-02 17:41 | PDOC H&P ---
History of Present Illness Admission Date/PCP: 12/02/17 15:45 Patient complains of: Patient presents emergency room with complaints of elevated blood sugar about 3 days History of Present Illness: DAVID FARIAS is a 22 year old female Patient presents emergency room with complaints of elevated blood sugar about 3 days. She says she has been weak and has had a poor appetite. She also complained of nausea without vomiting. She denies any fever, cough, dysuria, frequency abdominal pain or any other pertinent symptoms. Her blood sugar was found to be 500 in the emergency room with a CO2 of 11 and anion gap of 30. PH was 7.24. Patient is been admitted for diabetic ketoacidosis Past Medical History Endocrine Medical History: Reports: Diabetes Mellitus Type 1 - w/neuropathy DKA Psychiatric Medical History: Reports: Bipolar Disorder, Depression Past Surgical History Past Surgical History: Reports: None Social History Information Source: Patient Smoking Status: Never Smoker Frequency of Alcohol Use: None Hx Recreational Drug Use: No Drugs: None Hx Prescription Drug Abuse: No - Advance Directive Resuscitation Status: Full Code Family History Family History: CVA, DM - Mother, Hypertension Parental Family History Reviewed: Yes Children Family History Reviewed: NA Sibling(s) Family History Reviewed.: NA Medication/Allergy Home Medications: Gabapentin [Neurontin 400 mg Capsule] 900 mg PO QID 11/01/17 Insulin Aspart [Novolog Flexpen] 10 units SQ MEALS 30 Days #2 insuln.pen Tramadol HCl 50 mg PO Q12HP PRN #14 tablet 11/03/17 Insulin Glargine,Hum.rec.anlog [Lantus Insulin 100 Unit/mL] 20 unit SUBCUT QHS 12/02/17 Lisinopril [Prinivil 2.5 mg Tablet] 2.5 mg PO DAILY 12/02/17 Naproxen [Naproxen] 500 mg PO BID 12/02/17 Allergies/Adverse Reactions: No Known Allergies Allergy (Verified 12/02/17 14:16) Review of Systems All systems: reviewed and no additional remarkable complaints except as stated Physical Exam Vital Signs: Temp Pulse Resp BP Pulse Ox 98.3 F 120 H 16 105/54 L 100 12/02/17 14:13 12/02/17 14:13 12/02/17 14:13 12/02/17 14:13 12/02/17 14:13 General appearance: PRESENT: no acute distress, thin Head exam: PRESENT: atraumatic, normocephalic Eye exam: PRESENT: conjunctiva pink, EOMI, PERRLA. ABSENT: scleral icterus Ear exam: PRESENT: normal external ear exam, TM's normal bilaterally Mouth exam: PRESENT: dry mucosa, tongue midline Neck exam: ABSENT: carotid bruit, JVD, lymphadenopathy, thyromegaly Respiratory exam: PRESENT: clear to auscultation yajaira. ABSENT: rales, rhonchi, wheezes Cardiovascular exam: PRESENT: RRR. ABSENT: diastolic murmur, rubs, systolic murmur Pulses: PRESENT: normal dorsalis pedis pul Vascular exam: PRESENT: normal capillary refill GI/Abdominal exam: PRESENT: normal bowel sounds, soft. ABSENT: distended, guarding, mass, organolmegaly, rebound, tenderness Rectal exam: PRESENT: deferred Extremities exam: PRESENT: full ROM. ABSENT: calf tenderness, clubbing, pedal edema Neurological exam: PRESENT: alert, awake, oriented to person, oriented to place , oriented to time, oriented to situation, CN II-XII grossly intact. ABSENT: motor sensory deficit Psychiatric exam: PRESENT: appropriate affect, normal mood. ABSENT: homicidal ideation, suicidal ideation Skin exam: PRESENT: dry, intact, warm. ABSENT: cyanosis, rash Results Laboratory Results: 12/02/17 14:49 12/02/17 14:49 MCV 89 fl (80-97) 12/02/17 14:49 MCH 29.5 pg (27.0-33.4) 12/02/17 14:49 MCHC 33.4 g/dL (32.0-36.0) 12/02/17 14:49 RDW 13.7 % (11.5-14.0) 12/02/17 14:49 Seg Neutrophils % 69.2 % (42-78) 12/02/17 14:49 Lymphocytes % 21.3 % (13-45) 12/02/17 14:49 Monocytes % 8.7 % (3-13) 12/02/17 14:49 Eosinophils % 0.2 % (0-6) 12/02/17 14:49 Basophils % 0.6 % (0-2) 12/02/17 14:49 Absolute Neutrophils 6.6 10^3/uL (1.7-8.2) 12/02/17 14:49 Absolute Lymphocytes 2.0 10^3/uL (0.5-4.7) 12/02/17 14:49 Absolute Monocytes 0.8 10^3/uL (0.1-1.4) 12/02/17 14:49 Absolute Eosinophils 0.0 10^3/uL (0.0-0.6) 12/02/17 14:49 Absolute Basophils 0.1 10^3/uL (0.0-0.2) 12/02/17 14:49 VBG pH 7.24 (7.30-7.42) L 12/02/17 14:49 VBG pCO2 26.0 mmHg (35-63) L 12/02/17 14:49 VBG HCO3 10.8 mmol/L (20-32) L 12/02/17 14:49 VBG Base Excess -15.0 mmol/L 12/02/17 14:49 Chloride 101 mmol/L (98-107) 12/02/17 14:49 Carbon Dioxide 11 mmol/L (22-30) L 12/02/17 14:49 Anion Gap 30 (5-19) H 12/02/17 14:49 Est GFR ( Amer) > 60 (>60) 12/02/17 14:49 Est GFR (Non-Af Amer) > 60 (>60) 12/02/17 14:49 Glucose 507 mg/dL (75-110) H* 12/02/17 14:49 Calcium 9.7 mg/dL (8.4-10.2) 12/02/17 14:49 Total Bilirubin 0.5 mg/dL (0.2-1.3) 12/02/17 14:49 AST 23 U/L (14-36) 12/02/17 14:49 ALT 27 U/L (9-52) 12/02/17 14:49 Alkaline Phosphatase 123 U/L (38-126) 12/02/17 14:49 Total Protein 7.7 g/dL (6.3-8.2) 12/02/17 14:49 Albumin 4.4 g/dL (3.5-5.0) 12/02/17 14:49 Assessment & Plan - Diagnosis (1) DKA (diabetic ketoacidoses) Qualifiers: Diabetes mellitus type: type 1 Diabetes mellitus complication detail: without coma Qualified Code(s): E10.10 - Type 1 diabetes mellitus with ketoacidosis without coma Is this a current diagnosis for this admission?: Yes Plan: Continue with aggressive IV fluid as well as IV insulin. She will be placed on IMC. We will monitor BMP and adjust her insulin as needed. - Time Time Spent: 30 to 50 Minutes Medications reviewed and adjusted accordingly: Yes Anticipated discharge: Home Within: within 48 hours - Inpatient Certification Based on my medical assessment, after consideration of the patient's comorbidities, presenting symptoms, or acuity I expect that the services needed warrant INPATIENT care.: Yes Medical Necessity: Need For IV Fluids, Risk of Complication if Not Cared For in Hospital, Risk of Diagnosis Which Will Require Inpatient Eval/Care/Monitoring
[2017-12-02 18:11] LABS: APPEARANCE,URINE CLEAR; BILIRUBIN,URINE NEGATIVE (NEGATIVE); COLOR,URINE STRAW; GLUCOSE, URINE >=500 mg/dL (NEGATIVE); KETONES,URINE 80 mg/dL (NEGATIVE); LEUKOCYTE ESTERASE,URINE NEGATIVE (NEGATIVE); NITRITE,URINE NEGATIVE (NEGATIVE); PROTEIN,URINE NEGATIVE (NEGATIVE); URINE SPECIFIC GRAVITY 1.022; UROBILINOGEN,URINE NEGATIVE mg/dL (<2.0)
[2017-12-02] MEDS ORDERED: NORMAL SALINE 1000 ML 2,000 ML IV ONE (21:15)
[2017-12-02] MEDS: NAPROXEN 250 MG TABLET PO SCH (21:17)
[2017-12-02] MEDS: FAMOTIDINE INJ/PF 20 MG/2 ML SDV IV SCH (21:18)
[2017-12-02] MEDS: GABAPENTIN 300 MG CAPSULE PO SCH (21:18)
[2017-12-02] MEDS ORDERED: DEXTROSE 50%-WATER SYRINGE 12.5 GM/25 ML DOSE IV PRN ×2 (21:23→22:18)
[2017-12-02] MEDS ORDERED: INSULIN, REGULAR 100 UNIT/100 ML NORMAL SALINE IV PRN ×4 (21:23→22:18)
[2017-12-02] MEDS ORDERED: DEXTROSE 40% GEL 15 GM TUBE X 2 PO PRN ×2 (21:23→22:18)
[2017-12-02] MEDS ORDERED: DEXTROSE 50%-WATER SYRINGE 25 GM/50 ML DOSE IV PRN ×2 (21:23→22:18)
[2017-12-02 21:48] LABS: ARTERIAL BLOOD BASE EXCESS -11.6 mmol/L; ARTERIAL BLOOD H2CO3 0.76 mmol/L (1.05-1.35); ARTERIAL BLOOD HCO3 12.8 mmol/L (20-26); ARTERIAL BLOOD O2 SATURATION 97.1 % (94-98); ARTERIAL BLOOD PCO2 25.1 mmHg (35-45); ARTERIAL BLOOD PH 7.32 (7.35-7.45); ARTERIAL BLOOD PO2 97.4 mmHg (80-100); ARTERIAL BLOOD TOTAL CO2 13.5 mmol/L (21-25)
[2017-12-02 21:53] LABS: ARTERIAL BLOOD FIO2 21%
[2017-12-02 21:56] LABS: BLOOD UREA NITROGEN 9 mg/dL (7-20); CALCIUM 9.6 mg/dL (8.4-10.2); CARBON DIOXIDE 14 mmol/L (22-30); CHLORIDE 110 mmol/L (98-107); GLUCOSE 143 mg/dL (75-110); POTASSIUM 4.5 mmol/L (3.6-5.0)
[2017-12-02 22:01] LABS: SODIUM 145.2 mmol/L (137-145)
[2017-12-02 22:05] LABS: ANION GAP 21 (5-19)
[2017-12-02] MEDS ORDERED: DEXTROSE 5%-1/2 NORMAL SALINE 1,000 ML IV PRN (22:18)
[2017-12-02] MEDS: OXYCODONE-ACETAMINOPHEN 5-325 MG TABLET PO PRN (23:04)
[2017-12-03 01:34] LABS: ANION GAP 19 (5-19); BLOOD UREA NITROGEN 6 mg/dL (7-20); CALCIUM 8.5 mg/dL (8.4-10.2); CHLORIDE 112 mmol/L (98-107); GLUCOSE 151 mg/dL (75-110); POTASSIUM 4.1 mmol/L (3.6-5.0)
[2017-12-03 01:39] LABS: SODIUM 140.9 mmol/L (137-145)
[2017-12-03 01:43] LABS: CARBON DIOXIDE 10 mmol/L (22-30)
[2017-12-03] MEDS ORDERED: SODIUM BICARBONATE 8.4% INJ 50 MEQ/50 ML DISP.SYRIN IV ONE (02:00)
[2017-12-03 05:32] LABS: HEMATOCRIT 31.8 % (36.0-47.0); MEAN CORPUSCULAR HEMOGLOBIN 29.1 pg (27.0-33.4); MEAN CORPUSCULAR VOLUME 86 fl (80-97); PLATELET COUNT 287 10^3/uL (150-450); RED BLOOD COUNT 3.71 10^6/uL (3.72-5.28); RED CELL DISTRIBUTION WIDTH 13.4 % (11.5-14.0); WHITE BLOOD COUNT 9.5 10^3/uL (4.0-10.5)
[2017-12-03 05:40] LABS: HEMOGLOBIN 10.8 g/dL (12.0-15.5)
[2017-12-03 05:49] LABS: ANION GAP 15 (5-19); BLOOD UREA NITROGEN 6 mg/dL (7-20); CALCIUM 8.5 mg/dL (8.4-10.2); CARBON DIOXIDE 18 mmol/L (22-30); CHLORIDE 111 mmol/L (98-107); GLUCOSE 87 mg/dL (75-110); POTASSIUM 3.4 mmol/L (3.6-5.0); SODIUM 143.6 mmol/L (137-145)
[2017-12-03] MEDS ORDERED: GLUCAGON,HUMAN RECOMB 1 MG INJ IM PRN (06:21)
[2017-12-03] MEDS ORDERED: DEXTROSE 40% GEL 15 GM TUBE PO PRN (06:21)
[2017-12-03] MEDS ORDERED: DEXTROSE 50%-WATER SYRINGE 12.5 GM/25 ML DOSE IV PRN (06:21)
[2017-12-03] MEDS ORDERED: DEXTROSE 50%-WATER SYRINGE 25 GM/50 ML DOSE IV PRN (06:21)
[2017-12-03] MEDS ORDERED: DEXTROSE 40% GEL 15 GM TUBE X 2 PO PRN (06:21)
[2017-12-03] MEDS ORDERED: INSULIN GLARGINE,HUM.REC.ANLOG 1,000 UNIT/10 ML UNIT SUBCUT ONE ×2 (06:30→09:25)
[2017-12-03] MEDS ORDERED: POTASSIUM CHLORIDE 10 MEQ CAPSULE.ER PO ONE (07:00)
[2017-12-03] MEDS: OXYCODONE-ACETAMINOPHEN 5-325 MG TABLET PO PRN ×2 (08:30→21:18)
[2017-12-03] MEDS: INSULIN LISPRO 100 UNIT/ML 3 ML VIAL SUBCUT PRN ×4 (09:27→21:30)
[2017-12-03] MEDS: GABAPENTIN 300 MG CAPSULE PO SCH ×4 (09:29→21:14)
[2017-12-03] MEDS: FAMOTIDINE INJ/PF 20 MG/2 ML SDV IV SCH ×2 (09:29→21:14)
[2017-12-03] MEDS: ENOXAPARIN SODIUM INJ 40 MG/0.4 ML DISP.SYRIN SUBCUT SCH (09:38)
[2017-12-03] MEDS ORDERED: (PENDING PHARMACY ID) (Naproxen [Naproxen] 500 MG) PO SCH (10:00)
[2017-12-03] MEDS: NAPROXEN 250 MG TABLET PO SCH ×2 (10:53→21:13)
[2017-12-03 11:34] LABS: BLOOD UREA NITROGEN 5 mg/dL (7-20); CALCIUM 8.7 mg/dL (8.4-10.2); GLUCOSE 288 mg/dL (75-110); POTASSIUM 3.8 mmol/L (3.6-5.0)
[2017-12-03 11:40] LABS: CARBON DIOXIDE 11 mmol/L (22-30); CHLORIDE 107 mmol/L (98-107); SODIUM 139.5 mmol/L (137-145)
[2017-12-03 11:42] LABS: ANION GAP 22 (5-19)
[2017-12-03 15:41] LABS: ANION GAP 16 (5-19); BLOOD UREA NITROGEN 4 mg/dL (7-20); CALCIUM 8.9 mg/dL (8.4-10.2); CARBON DIOXIDE 17 mmol/L (22-30); CHLORIDE 107 mmol/L (98-107); GLUCOSE 200 mg/dL (75-110); POTASSIUM 4.3 mmol/L (3.6-5.0); SODIUM 140.1 mmol/L (137-145)
--- NOTE | 2017-12-03 16:36 | PDOC PROGRESS REPORT ---
Subjective Progress Note for:: 12/03/17 Subjective:: Patient feels better. She is awake and alert Reason For Visit: DKA Physical Exam Vital Signs: Temp Pulse Resp BP Pulse Ox 97.9 F 118 H 16 114/68 100 12/03/17 15:24 12/03/17 15:24 12/03/17 15:24 12/03/17 15:24 12/03/17 15:24 Intake & Output 12/02/17 12/03/17 12/04/17 06:59 06:59 06:59 Intake Total 2000 Balance 2000 Weight 47.4 kg General appearance: PRESENT: no acute distress, thin, well-developed Head exam: PRESENT: atraumatic, normocephalic Eye exam: PRESENT: conjunctiva pink, EOMI, PERRLA. ABSENT: scleral icterus Ear exam: PRESENT: normal external ear exam Mouth exam: PRESENT: moist, tongue midline Neck exam: ABSENT: carotid bruit, JVD, lymphadenopathy, thyromegaly Respiratory exam: PRESENT: clear to auscultation yajaira. ABSENT: rales, rhonchi, wheezes Cardiovascular exam: PRESENT: RRR. ABSENT: diastolic murmur, rubs, systolic murmur Pulses: PRESENT: normal dorsalis pedis pul Vascular exam: PRESENT: normal capillary refill GI/Abdominal exam: PRESENT: normal bowel sounds, soft. ABSENT: distended, guarding, mass, organolmegaly, rebound, tenderness Rectal exam: PRESENT: deferred Extremities exam: PRESENT: full ROM. ABSENT: calf tenderness, clubbing, pedal edema Neurological exam: PRESENT: alert, awake, oriented to person, oriented to place , oriented to time, oriented to situation, CN II-XII grossly intact. ABSENT: motor sensory deficit Psychiatric exam: PRESENT: appropriate affect, normal mood. ABSENT: homicidal ideation, suicidal ideation Skin exam: PRESENT: dry, intact, warm. ABSENT: cyanosis, rash Results Laboratory Results: 12/03/17 05:09 12/03/17 14:52 12/02/17 12/02/17 12/02/17 17:53 21:30 21:30 WBC RBC Hgb Hct MCV MCH MCHC RDW Plt Count Carbonic Acid 0.76 L HCO3/H2CO3 Ratio 16:1 ABG pH 7.32 L ABG pCO2 25.1 L ABG pO2 97.4 ABG HCO3 12.8 L ABG O2 Saturation 97.1 ABG Base Excess -11.6 FiO2 21% Sodium 145.2 H Potassium 4.5 Chloride 110 H Carbon Dioxide 14 L Anion Gap 21 H BUN 9 Creatinine 0.54 Est GFR ( Amer) > 60 Est GFR (Non-Af Amer) > 60 Glucose 143 H Calcium 9.6 Urine Color STRAW Urine Appearance CLEAR Urine pH 5.0 Ur Specific [place] 1.022 Urine Protein NEGATIVE Urine Glucose (UA) >=500 H Urine Ketones 80 H Urine Blood NEGATIVE Urine Nitrite NEGATIVE Ur Leukocyte Esterase NEGATIVE Urine WBC (Auto) 3 Urine RBC (Auto) 1 12/03/17 12/03/17 12/03/17 01:12 05:09 05:09 WBC 9.5 RBC 3.71 L Hgb 10.8 L D Hct 31.8 L MCV 86 MCH 29.1 MCHC 34.0 RDW 13.4 Plt Count 287 Carbonic Acid HCO3/H2CO3 Ratio ABG pH ABG pCO2 ABG pO2 ABG HCO3 ABG O2 Saturation ABG Base Excess FiO2 Sodium 140.9 143.6 Potassium 4.1 3.4 L Chloride 112 H 111 H Carbon Dioxide 10 L* 18 L Anion Gap 19 15 BUN 6 L 6 L Creatinine 0.46 L 0.44 L Est GFR ( Amer) > 60 > 60 Est GFR (Non-Af Amer) > 60 > 60 Glucose 151 H 87 Calcium 8.5 8.5 Urine Color Urine Appearance Urine pH Ur Specific [place] Urine Protein Urine Glucose (UA) Urine Ketones Urine Blood Urine Nitrite Ur Leukocyte Esterase Urine WBC (Auto) Urine RBC (Auto) 12/03/17 12/03/17 12/03/17 09:06 10:44 14:52 WBC RBC Hgb Hct MCV MCH MCHC RDW Plt Count Carbonic Acid HCO3/H2CO3 Ratio ABG pH ABG pCO2 ABG pO2 ABG HCO3 ABG O2 Saturation ABG Base Excess FiO2 Sodium Cancelled 139.5 140.1 Potassium Cancelled 3.8 4.3 Chloride Cancelled 107 107 Carbon Dioxide Cancelled 11 L 17 L Anion Gap Cancelled 22 H 16 BUN Cancelled 5 L 4 L Creatinine Cancelled 0.49 L 0.47 L Est GFR ( Amer) Cancelled > 60 > 60 Est GFR (Non-Af Amer) Cancelled > 60 > 60 Glucose Cancelled 288 H 200 H Calcium Cancelled 8.7 8.9 Urine Color Urine Appearance Urine pH Ur Specific [place] Urine Protein Urine Glucose (UA) Urine Ketones Urine Blood Urine Nitrite Ur Leukocyte Esterase Urine WBC (Auto) Urine RBC (Auto) Assessment & Plan - Diagnosis (1) DKA (diabetic ketoacidoses) Qualifiers: Diabetes mellitus type: type 1 Diabetes mellitus complication detail: without coma Qualified Code(s): E10.10 - Type 1 diabetes mellitus with ketoacidosis without coma Is this a current diagnosis for this admission?: Yes Plan: Improved but still acidotic. Will continue IVF and reevaluate in am, start SC Insulin and likely dc in am if improved - Time Time Spent with patient: 15-24 minutes Medications reviewed and adjusted accordingly: Yes Anticipated discharge: Home Within: within 24 hours
[2017-12-03 17:28] LABS: ANION GAP 12 (5-19); BLOOD UREA NITROGEN 4 mg/dL (7-20); CALCIUM 9.2 mg/dL (8.4-10.2); CARBON DIOXIDE 22 mmol/L (22-30); CHLORIDE 108 mmol/L (98-107); GLUCOSE 174 mg/dL (75-110); SODIUM 141.5 mmol/L (137-145)
[2017-12-03 21:26] LABS: ANION GAP 10 (5-19); BLOOD UREA NITROGEN 5 mg/dL (7-20); CALCIUM 8.9 mg/dL (8.4-10.2); CARBON DIOXIDE 23 mmol/L (22-30); CHLORIDE 109 mmol/L (98-107); GLUCOSE 190 mg/dL (75-110); POTASSIUM 3.9 mmol/L (3.6-5.0); SODIUM 141.7 mmol/L (137-145)
[2017-12-04] MEDS: OXYCODONE-ACETAMINOPHEN 5-325 MG TABLET PO PRN (07:13)
--- NOTE | 2017-12-04 07:44 | PDOC DISCHARGE SUMMARY ---
General - Admit/Disc Date/PCP Admission Date/Primary Care Provider: 12/02/17 15:45 Discharge Date: 12/04/17 - Discharge Diagnosis (1) DKA (diabetic ketoacidoses) Is this a current diagnosis for this admission?: Yes - Additional Information Resuscitation Status: Full Code Discharge Diet: Diabetic Discharge Activity: Activity As Tolerated Home Medications: Insulin Aspart [Novolog Flexpen] 10 unit SQ .SLIDINGSCALE 12/02/17 Insulin Glargine,Hum.rec.anlog [Lantus Insulin 100 Unit/mL] 20 unit SUBCUT QHS 12/02/17 Lisinopril [Prinivil 2.5 mg Tablet] 2.5 mg PO DAILY 12/02/17 Naproxen 500 mg PO BID 12/02/17 History of Present Illness History of Present Illness: DAVID FARIAS is a 22 year old female Patient presents emergency room with complaints of elevated blood sugar about 3 days. She says she has been weak and has had a poor appetite. She also complained of nausea without vomiting. She denies any fever, cough, dysuria, frequency abdominal pain or any other pertinent symptoms. Her blood sugar was found to be 500 in the emergency room with a CO2 of 11 and anion gap of 30. PH was 7.24. Patient is been admitted for diabetic ketoacidosis Hospital Course Hospital Course: She was admitted in diabetic ketoacidosis. She was started on aggressive intravenous fluid as well as IV insulin and patient responded very well to this regimen. There is no associated signs of infection or any other pertinent findings. Acidosis has resolved and patient has remained hemodynamically stable. With no further interventions been planned patient has been advised on the need to be compliant and she is been discharged home for outpatient follow- up. Physical Exam Vital Signs: Temp Pulse Resp BP Pulse Ox 97.7 F 101 H 16 116/75 98 12/04/17 03:02 12/04/17 03:02 12/04/17 03:02 12/04/17 03:02 12/04/17 03:02 Intake & Output 12/03/17 12/04/17 12/05/17 06:59 06:59 06:59 Intake Total 2793 1246 Balance 2793 1246 Weight 47.4 kg 47.6 kg General appearance: PRESENT: no acute distress, thin, well-developed Head exam: PRESENT: atraumatic, normocephalic Eye exam: PRESENT: conjunctiva pink, EOMI, PERRLA. ABSENT: scleral icterus Ear exam: PRESENT: normal external ear exam Mouth exam: PRESENT: moist, tongue midline Neck exam: ABSENT: carotid bruit, JVD, lymphadenopathy, thyromegaly Respiratory exam: PRESENT: clear to auscultation yajaira. ABSENT: rales, rhonchi, wheezes Cardiovascular exam: PRESENT: RRR. ABSENT: diastolic murmur, rubs, systolic murmur Pulses: PRESENT: normal dorsalis pedis pul Vascular exam: PRESENT: normal capillary refill GI/Abdominal exam: PRESENT: normal bowel sounds, soft. ABSENT: distended, guarding, mass, organolmegaly, rebound, tenderness Rectal exam: PRESENT: deferred Extremities exam: PRESENT: full ROM. ABSENT: calf tenderness, clubbing, pedal edema Neurological exam: PRESENT: alert, awake, oriented to person, oriented to place , oriented to time, oriented to situation, CN II-XII grossly intact. ABSENT: motor sensory deficit Psychiatric exam: PRESENT: appropriate affect, normal mood. ABSENT: homicidal ideation, suicidal ideation Skin exam: PRESENT: dry, intact, warm. ABSENT: cyanosis, rash Results Laboratory Results: 12/03/17 05:09 12/03/17 21:07 12/03/17 12/03/17 12/03/17 09:06 10:44 14:52 Sodium Cancelled 139.5 140.1 Potassium Cancelled 3.8 4.3 Chloride Cancelled 107 107 Carbon Dioxide Cancelled 11 L 17 L Anion Gap Cancelled 22 H 16 BUN Cancelled 5 L 4 L Creatinine Cancelled 0.49 L 0.47 L Est GFR ( Amer) Cancelled > 60 > 60 Est GFR (Non-Af Amer) Cancelled > 60 > 60 Glucose Cancelled 288 H 200 H Calcium Cancelled 8.7 8.9 12/03/17 12/03/17 17:00 21:07 Sodium 141.5 141.7 Potassium 4.0 3.9 Chloride 108 H 109 H Carbon Dioxide 22 23 Anion Gap 12 10 BUN 4 L 5 L Creatinine 0.48 L 0.45 L Est GFR ( Amer) > 60 > 60 Est GFR (Non-Af Amer) > 60 > 60 Glucose 174 H 190 H Calcium 9.2 8.9 Qualifiers - * PATIENT BEING DISCHARGED WITH ANY OF THE FOLLOWING DIAGNOSIS: No Plan Time Spent: Less than 30 Minutes
[2017-12-04] MEDS: INSULIN LISPRO 100 UNIT/ML 3 ML VIAL SUBCUT PRN (08:27)
[2017-12-04] MEDS: GABAPENTIN 300 MG CAPSULE PO SCH (09:24)
[2017-12-04] MEDS: FAMOTIDINE INJ/PF 20 MG/2 ML SDV IV SCH (09:24)
[2017-12-04] MEDS: NAPROXEN 250 MG TABLET PO SCH (09:27)
[2017-12-04] MEDS: ENOXAPARIN SODIUM INJ 40 MG/0.4 ML DISP.SYRIN SUBCUT SCH (09:27)
[2017-12-04 09:56] VITALS: BP 105/54
== END 2017-12-04 10:17 | disposition home or self-care (01) | DRG 639 ==
LOC: ER 14:06 → EH 15:45 → 3S 20:54
PROVIDERS: ADMIT Internal Medicine; ATTEND Internal Medicine
DX: E10.10 Type 1 diabetes mellitus with ketoacidosis without coma (principal); E10.40 Type 1 diabetes mellitus with diabetic neuropathy, unspecified; F32.9 Major depressive disorder, single episode, unspecified; Z79.4 Long term (current) use of insulin
CPT/HCPCS: 36415; 36600; 80048; 80053; 81001; 81025; 82010; 82803; 82962; 85025; 85027; 96360; 99285; J1815; J3490; J7030; S0028

== ENCOUNTER 2017-12-05 18:49 | Inpatient (IN) | payer MEDICAID ==
--- NOTE | 2017-12-05 20:11 | ER Document Report ---
ED General - General Chief Complaint: High Blood Sugar Stated Complaint: BLOOD SUGAR ISSUE Time Seen by Provider: 12/05/17 20:01 Mode of Arrival: Ambulatory Information source: Patient Notes: 23-year-old female with type 1 diabetes, neuropathy presents with complaint of elevated blood sugar. Patient states that despite taking her insulin as prescribed her blood sugar today was over 500. She denies any associated nausea , vomiting, chest pain, shortness of breath, abdominal pain. Patient was discharged yesterday from [facility] after a DKA admission. Patient is on a sliding insulin scale and takes 20 mg of Lantus at night. Patient has no physical complaints at this time. TRAVEL OUTSIDE OF THE [place] IN LAST 30 DAYS: No - HPI Onset: Just prior to arrival Onset/Duration: Sudden Quality of pain: No pain Severity: None Associated symptoms: None Exacerbated by: Denies Relieved by: Denies Similar symptoms previously: Yes Recently seen / treated by doctor: Yes - Discharge yesterday from [facility] - Related Data Allergies/Adverse Reactions: No Known Allergies Allergy (Verified 12/05/17 18:50) Past Medical History - General Information source: Patient, [facility] Records - Social History Smoking Status: Never Smoker Frequency of alcohol use: None Drug Abuse: None Lives with: Family Family History: CVA, DM - Mother, Hypertension Patient has suicidal ideation: No Patient has homicidal ideation: No Endocrine Medical History: Reports: Hx Diabetes Mellitus Type 1 - w/neuropathy DKA Renal/ Medical History: Denies: Hx Peritoneal Dialysis Psychiatric Medical History: Reports: Hx Bipolar Disorder, Hx Depression - Immunizations Hx Diphtheria, Pertussis, Tetanus Vaccination: No Review of Systems - Review of Systems Notes: REVIEW OF SYSTEMS: CONSTITUTIONAL : Denies fever, chills, or sweats. Denies recent illness. Denies weight loss, recent hospitalizations. EENT: Denies visual changes, eye pain. Denies nasal or sinus congestion or discharge. Denies sore throat, oral lesions, difficulty swallowing. CARDIOVASCULAR: Denies chest pain. Denies palpitations. Denies lower extremity edema. RESPIRATORY: Denies cough, cold, or chest congestion. Denies shortness of breath, wheezing. GASTROINTESTINAL: Denies abdominal pain or distention. Denies nausea, vomiting , or diarrhea. Denies blood in vomitus, stools, or per rectum. Denies black, tarry stools. Denies constipation. GENITOURINARY: Denies difficulty urinating, painful urination, frequency, blood in urine, or vaginal discharge. MUSCULOSKELETAL: Denies back or neck pain or stiffness. Denies joint pain or swelling. SKIN: Denies rash, lesions or sores. HEMATOLOGIC : Denies easy bruising or bleeding. LYMPHATIC: Denies swollen glands. NEUROLOGICAL: Denies confusion or altered mental status. Denies passing out or loss of consciousness. Denies dizziness or lightheadedness. Denies headache. Denies weakness or paralysis. Denies problems difficulty with ambulation, slurred speech. Denies sensory loss, numbness, or tingling. Denies seizures. PSYCHIATRIC: Denies anxiety or stress. Denies depression, suicidal ideation, or homicidal ideation. Denies visual or auditory hallucinations. Physical Exam - Vital signs Vitals: Temp Pulse Resp BP Pulse Ox 97.7 F 132 H 20 124/84 99 12/05/17 18:55 12/05/17 18:55 12/05/17 18:55 12/05/17 18:55 12/05/17 18:55 Interpretation: Tachycardic. No: Hypotensive, Hypoxic, Febrile - Notes Notes: PHYSICAL EXAMINATION: GENERAL: Well-appearing, well-nourished and in no acute distress. HEAD: Atraumatic, normocephalic. EYES: Pupils equal round and reactive to light, extraocular movements intact, conjunctiva are normal. ENT: Nares patent, oropharynx clear without exudates. Moist mucous membranes. NECK: Normal range of motion, supple without lymphadenopathy LUNGS: Breath sounds clear to auscultation bilaterally and equal. No wheezes rales or rhonchi. HEART: Regular rate and rhythm without murmurs ABDOMEN: Soft, nontender, nondistended abdomen. No guarding, no rebound. No masses appreciated. Female : deferred Musculoskeletal: Normal range of motion, no pitting or edema. No cyanosis. NEUROLOGICAL: Cranial nerves grossly intact. Normal speech, normal gait. Normal sensory, motor exams PSYCH: Normal mood, normal affect. SKIN: Warm, Dry, normal turgor, no rashes or lesions noted. Course - Re-evaluation Re-evalutation: 12/05/17 21:57 Laboratory 12/05/17 12/05/17 12/05/17 20:45 20:45 20:45 WBC 6.4 RBC 4.76 Hgb 14.1 D Hct 42.2 MCV 89 MCH 29.5 MCHC 33.3 RDW 13.6 Plt Count 348 Seg Neutrophils % 80.2 H Lymphocytes % 15.1 Monocytes % 4.4 Eosinophils % 0.0 Basophils % 0.3 Absolute Neutrophils 5.1 Absolute Lymphocytes 1.0 Absolute Monocytes 0.3 Absolute Eosinophils 0.0 Absolute Basophils 0.0 VBG pH 7.19 L* VBG pCO2 23.3 L VBG HCO3 8.7 L VBG Base Excess -17.6 Sodium 144.7 Potassium 4.4 Chloride 102 Carbon Dioxide 8 L* Anion Gap 35 H BUN 11 Creatinine 0.75 Est GFR ( Amer) > 60 Est GFR (Non-Af Amer) > 60 Glucose 386 H Calcium 10.3 H Total Bilirubin 0.4 Direct Bilirubin 0.4 Neonat Total Bilirubin Not Reportable Neonat Direct Bilirubin Not Reportable Neonat Indirect Bili Not Reportable AST 28 ALT 23 Alkaline Phosphatase 129 H Total Protein 8.5 H Albumin 4.9 Urine Color Urine Appearance Urine pH Ur Specific [place] Urine Protein Urine Glucose (UA) Urine Ketones Urine Blood Urine Nitrite Urine Bilirubin Urine Urobilinogen Ur Leukocyte Esterase Urine WBC (Auto) Urine RBC (Auto) Urine Bacteria (Auto) Squamous Epi Cells Auto Urine Mucus (Auto) Urine Ascorbic Acid 12/05/17 20:45 WBC RBC Hgb Hct MCV MCH MCHC RDW Plt Count Seg Neutrophils % Lymphocytes % Monocytes % Eosinophils % Basophils % Absolute Neutrophils Absolute Lymphocytes Absolute Monocytes Absolute Eosinophils Absolute Basophils VBG pH VBG pCO2 VBG HCO3 VBG Base Excess Sodium Potassium Chloride Carbon Dioxide Anion Gap BUN Creatinine Est GFR ( Amer) Est GFR (Non-Af Amer) Glucose Calcium Total Bilirubin Direct Bilirubin Neonat Total Bilirubin Neonat Direct Bilirubin Neonat Indirect Bili AST ALT Alkaline Phosphatase Total Protein Albumin Urine Color STRAW Urine Appearance SLIGHTLY-CLOUDY Urine pH 5.0 Ur Specific [place] 1.020 Urine Protein NEGATIVE Urine Glucose (UA) >=500 H Urine Ketones 80 H Urine Blood SMALL H Urine Nitrite NEGATIVE Urine Bilirubin NEGATIVE Urine Urobilinogen NEGATIVE Ur Leukocyte Esterase SMALL H Urine WBC (Auto) 7 Urine RBC (Auto) 1 Urine Bacteria (Auto) TRACE Squamous Epi Cells Auto 3 Urine Mucus (Auto) RARE Urine Ascorbic Acid NEGATIVE 12/06/17 02:02 23-year-old female with type 1 diabetes, neuropathy presents with complaint of elevated blood sugar. Patient states that despite taking her insulin as prescribed her blood sugar today was over 500. She denies any associated nausea , vomiting, chest pain, shortness of breath, abdominal pain. Patient was discharged yesterday from [facility] after a DKA admission. Patient is on a sliding insulin scale and takes 20 mg of Lantus at night. Upon arrival patient is tachycardic but afebrile and not hypoxic. She does not appear toxic or dehydrated. She is in no acute distress. Previous medical records were reviewed. And found to be in DKA with a glucose of 386, bicarb of 8 and an anion gap of 30. Patient received 3 L of IV fluids and an insulin drip was initiated. ABG significant for a pH of 7.1. Patient will be admitted to the [facility] by the hospitalist. 12/06/17 02:03 - Vital Signs Vital signs: Temp Pulse Resp BP Pulse Ox 98.0 F 112 H 20 128/76 H 100 12/06/17 00:21 12/06/17 00:21 12/06/17 00:21 12/06/17 00:21 12/06/17 00:21 - Laboratory Result Diagrams: 12/05/17 20:45 12/05/17 20:45 Laboratory results interpreted by me: 12/05/17 12/05/17 12/05/17 20:45 20:45 20:45 Seg Neutrophils % 80.2 H VBG pH 7.19 L* VBG pCO2 23.3 L VBG HCO3 8.7 L Carbon Dioxide 8 L* Anion Gap 35 H Glucose 386 H Calcium 10.3 H Alkaline Phosphatase 129 H Total Protein 8.5 H Urine Glucose (UA) Urine Ketones Urine Blood Ur Leukocyte Esterase 12/05/17 20:45 Seg Neutrophils % VBG pH VBG pCO2 VBG HCO3 Carbon Dioxide Anion Gap Glucose Calcium Alkaline Phosphatase Total Protein Urine Glucose (UA) >=500 H Urine Ketones 80 H Urine Blood SMALL H Ur Leukocyte Esterase SMALL H Discharge - Discharge Clinical Impression: DKA (diabetic ketoacidoses) Qualifiers: Diabetes mellitus type: type 1 Diabetes mellitus complication detail: without coma Qualified Code(s): E10.10 - Type 1 diabetes mellitus with ketoacidosis without coma Condition: Good Disposition: ADMITTED INPATIENT Admitting Provider: Hospitalist Unit Admitted: [facility]
[2017-12-05] MEDS: NORMAL SALINE 1000 ML 1,000 ML IV PRN ×2 (20:50→22:00)
[2017-12-05 21:02] LABS: VENOUS BLOOD BASE EXCESS -17.6 mmol/L; VENOUS BLOOD HCO3 8.7 mmol/L (20-32); VENOUS BLOOD PCO2 23.3 mmHg (35-63)
[2017-12-05 21:06] LABS: ABSOLUTE MONOCYTES (AUTO) 0.3 10^3/uL (0.1-1.4); ABSOLUTE NEUT (AUTO) 5.1 10^3/uL (1.7-8.2); BASOPHILS % (AUTO) 0.3 % (0-2); HEMATOCRIT 42.2 % (36.0-47.0); HEMOGLOBIN 14.1 g/dL (12.0-15.5); LYMPHOCYTES % (AUTO) 15.1 % (13-45); MEAN CORPUSCULAR HEMOGLOBIN 29.5 pg (27.0-33.4); MEAN CORPUSCULAR HGB CONC 33.3 g/dL (32.0-36.0); MEAN CORPUSCULAR VOLUME 89 fl (80-97); MONOCYTES % (AUTO) 4.4 % (3-13); PLATELET COUNT 348 10^3/uL (150-450); RED BLOOD COUNT 4.76 10^6/uL (3.72-5.28); RED CELL DISTRIBUTION WIDTH 13.6 % (11.5-14.0); SEGMENTED NEUTROPHILS % (AUTO) 80.2 % (42-78); TOTAL CELLS COUNTED % (AUTO) 100 %; WHITE BLOOD COUNT 6.4 10^3/uL (4.0-10.5)
[2017-12-05 21:07] LABS: APPEARANCE,URINE SLIGHTLY-CLOUDY; BILIRUBIN,URINE NEGATIVE (NEGATIVE); COLOR,URINE STRAW; GLUCOSE, URINE >=500 mg/dL (NEGATIVE); KETONES,URINE 80 mg/dL (NEGATIVE); LEUKOCYTE ESTERASE,URINE SMALL (NEGATIVE); NITRITE,URINE NEGATIVE (NEGATIVE); PROTEIN,URINE NEGATIVE (NEGATIVE); UROBILINOGEN,URINE NEGATIVE mg/dL (<2.0)
[2017-12-05 21:08] LABS: VENOUS BLOOD PH 7.19 (7.30-7.42)
[2017-12-05 21:22] LABS: ALANINE AMINOTRANSFERASE 23 U/L (9-52); ALBUMIN 4.9 g/dL (3.5-5.0); ALKALINE PHOSPHATASE 129 U/L (38-126); ASPARTATE AMINO TRANSFERASE 28 U/L (14-36); BILIRUBIN,DIRECT 0.4 mg/dL (0.0-0.4); BILIRUBIN,TOTAL 0.4 mg/dL (0.2-1.3); BLOOD UREA NITROGEN 11 mg/dL (7-20); CALCIUM 10.3 mg/dL (8.4-10.2); GLUCOSE 386 mg/dL (75-110); POTASSIUM 4.4 mmol/L (3.6-5.0); TOTAL PROTEIN 8.5 g/dL (6.3-8.2)
[2017-12-05 21:27] LABS: CHLORIDE 102 mmol/L (98-107); SODIUM 144.7 mmol/L (137-145)
[2017-12-05 21:30] LABS: ANION GAP 35 (5-19)
[2017-12-05 21:31] LABS: CARBON DIOXIDE 8 mmol/L (22-30)
[2017-12-05] MEDS ORDERED: NORMAL SALINE 1000 ML 1,000 ML IV ONE (21:32)
[2017-12-05] MEDS ORDERED: DEXTROSE 40% GEL 15 GM TUBE PO PRN ×5 (21:59→22:47)
[2017-12-05] MEDS ORDERED: GLUCAGON,HUMAN RECOMB 1 MG INJ IM PRN ×2 (21:59→22:44)
[2017-12-05] MEDS ORDERED: DEXTROSE 50%-WATER 25 GM/50 ML DISP.SYRIN IV PRN ×6 (21:59→22:47)
[2017-12-05] MEDS ORDERED: NORMAL SALINE 100 ML with INSULIN REGULAR, HUMAN 100 UNIT IV PRN ×4 (21:59→22:44)
[2017-12-05] MEDS ORDERED: INSULIN REG, HUMAN 100 UNIT/ML 3 ML VIAL (PYX) ONE (22:12)
[2017-12-05] MEDS ORDERED: ONDANSETRON HCL INJ/PF 4 MG/2 ML SDV IV PRN (22:47)
[2017-12-05] MEDS ORDERED: GLUCAGON,HUMAN RECOMB 1 MG INJ SUBCUT PRN (22:47)
[2017-12-05] MEDS ORDERED: BACITRACIN ZINC OINTMENT 15 GM TP ONE (22:59)
--- NOTE | 2017-12-05 23:14 | PDOC H&P ---
History of Present Illness Admission Date/PCP: 12/05/17 22:19 WASHINGTON COOMBS MD Patient complains of: Elevated blood glucose History of Present Illness: DAVID FARIAS is a 22 year old female with type 1 diabetes on insulin to the emergency room with complaint of elevated blood glucose in spite of taking her insulin. Patient was discharged yesterday home after admission for DKA. Patient reports that she has been taking sliding scale insulin along with Lantus and in spite of that her blood glucose is over 500 today. Patient denies abdominal pain or fever or nausea vomiting or diarrhea. Patient denies any chest pain or shortness of breath or headache or dizziness or focal weakness or numbness or urinary symptoms. On arrival to emergency room her vitals were stable except heart rate was 132. Her laboratory workup shows normal white count however her venous gas pH was 7.19 only. Her chemistries showed bicarb of 8 with anion gap of 35. Blood glucose was 386. Patient was given IV fluid and started on insulin drip and was referred to hospital service for admission. Past Medical History Endocrine Medical History: Reports: Diabetes Mellitus Type 1 - w/neuropathy DKA Psychiatric Medical History: Reports: Bipolar Disorder, Depression Past Surgical History Past Surgical History: Reports: None Social History Information Source: Patient Lives with: Family Smoking Status: Never Smoker Frequency of Alcohol Use: None Hx Recreational Drug Use: No Drugs: None Hx Prescription Drug Abuse: No Family History Family History: CVA, DM - Mother, Hypertension Parental Family History Reviewed: No Children Family History Reviewed: No Sibling(s) Family History Reviewed.: No Medication/Allergy Home Medications: Insulin Aspart [Novolog Flexpen] 0 unit SQ .SLIDINGSCALE 12/02/17 Insulin Glargine,Hum.rec.anlog [Lantus Insulin 100 Unit/mL] 20 unit SUBCUT QHS 12/02/17 Gabapentin [Neurontin 300 mg Capsule] 300 mg PO Q6 12/05/17 Allergies/Adverse Reactions: No Known Allergies Allergy (Verified 12/05/17 18:50) Physical Exam Vital Signs: Temp Pulse Resp BP Pulse Ox 97.7 F 132 H 20 124/84 99 12/05/17 18:55 12/05/17 18:55 12/05/17 18:55 12/05/17 18:55 12/05/17 18:55 Intake & Output 12/04/17 12/05/1718 06:59 06:59 06:59 Intake Total 1999 Balance 1999 General appearance: PRESENT: no acute distress, cooperative, well-developed, well-nourished Head exam: PRESENT: atraumatic, normocephalic Eye exam: ABSENT: conjunctival injection, conjunctiva pink, conjunctiva pale, EOMI, nystagmus, periorbital swelling, PERRLA, scleral icterus, other Mouth exam: PRESENT: dry mucosa Throat exam: ABSENT: tonsillar exudate Neck exam: ABSENT: carotid bruit, JVD Respiratory exam: PRESENT: clear to auscultation yajaira. ABSENT: rhonchi, wheezes Cardiovascular exam: PRESENT: RRR, +S1, +S2, tachycardia Pulses: PRESENT: normal carotid pulses Vascular exam: PRESENT: normal capillary refill GI/Abdominal exam: PRESENT: normal bowel sounds, soft. ABSENT: organolmegaly, tenderness Rectal exam: PRESENT: deferred Gentrourinary exam: ABSENT: ecchymosis, erythema, lacerations, lesions, scrotal swelling, testicular tenderness, urethral discharge, indwelling catheter, other Extremities exam: ABSENT: calf tenderness, clubbing, full ROM, joint swelling, pedal edema, tenderness, +1 edema, +2 edema, other Musculoskeletal exam: PRESENT: ambulatory Neurological exam: PRESENT: alert, altered, awake, oriented to person, oriented to place, oriented to time, oriented to situation, CN II-XII grossly intact. ABSENT: motor sensory deficit Psychiatric exam: ABSENT: homicidal ideation, suicidal ideation Skin exam: ABSENT: rash Results Laboratory Results: Lab results reviewed. Assessment & Plan - Diagnosis (1) DKA (diabetic ketoacidoses) Qualifiers: Diabetes mellitus type: type 1 Diabetes mellitus complication detail: without coma Qualified Code(s): E10.10 - Type 1 diabetes mellitus with ketoacidosis without coma Is this a current diagnosis for this admission?: Yes Plan: Patient with again DKA. Patient is hemodynamically stable except tachycardia. No evidence of infection or sepsis. We will continue DKA protocol with IV fluid and insulin drip along with Accu-Chek every hour and BMP q. 4 hour. Patient will be kept n.p.o. except ice chips. - Time Time Spent: 30 to 50 Minutes - Inpatient Certification Based on my medical assessment, after consideration of the patient's comorbidities, presenting symptoms, or acuity I expect that the services needed warrant INPATIENT care.: Yes I certify that my determination is in accordance with my understanding of Medicare's requirements for reasonable and necessary INPATIENT services [42 CFR 412.3e].: Yes Medical Necessity: Failure to Improve With Outpatient Therapy, Need Close Monitoring Due to Risk of Patient Decompensation, Need For IV Fluids, Need For Continuous Telemetry Monitoring
[2017-12-06] MEDS: DEXTROSE 5%-1/2 NORMAL SALINE 1,000 ML IV PRN ×3 (00:06→14:18)
[2017-12-06 02:29] LABS: ANION GAP 19 (5-19); BLOOD UREA NITROGEN 6 mg/dL (7-20); CALCIUM 8.6 mg/dL (8.4-10.2); CARBON DIOXIDE 15 mmol/L (22-30); CHLORIDE 110 mmol/L (98-107); GLUCOSE 105 mg/dL (75-110); POTASSIUM 3.9 mmol/L (3.6-5.0); SODIUM 143.5 mmol/L (137-145)
[2017-12-06] MEDS: ACETAMINOPHEN 325 MG TABLET PO PRN (03:18)
[2017-12-06 07:02] LABS: BLOOD UREA NITROGEN 3 mg/dL (7-20); CALCIUM 8.9 mg/dL (8.4-10.2); GLUCOSE 224 mg/dL (75-110); POTASSIUM 3.7 mmol/L (3.6-5.0)
[2017-12-06 07:07] LABS: CARBON DIOXIDE 11 mmol/L (22-30); CHLORIDE 106 mmol/L (98-107); SODIUM 140.1 mmol/L (137-145)
[2017-12-06 07:10] LABS: ANION GAP 23 (5-19)
[2017-12-06] MEDS: ENOXAPARIN SODIUM INJ 30 MG/0.3 ML DISP.SYRIN SUBCUT SCH (09:30)
[2017-12-06 10:49] LABS: BLOOD UREA NITROGEN 3 mg/dL (7-20); CALCIUM 9.2 mg/dL (8.4-10.2); CHLORIDE 106 mmol/L (98-107); GLUCOSE 108 mg/dL (75-110); POTASSIUM 3.2 mmol/L (3.6-5.0); SODIUM 140.3 mmol/L (137-145)
[2017-12-06 11:02] LABS: ANION GAP 14 (5-19)
[2017-12-06 11:07] LABS: CARBON DIOXIDE 20 mmol/L (22-30)
--- NOTE | 2017-12-06 14:09 | PDOC PROGRESS REPORT ---
Subjective Progress Note for:: 12/06/17 Subjective:: This is a 22 years old black female patient who is a known case of insulin- dependent type 1 diabetes mellitus and well-known to the hospital service due to her multiple hospitalization, Admitted for DKA. At that admission her blood sugar is 461, anion gap of 35 and urine ketone of 80. Of note patient recently, to be specific on November 23 discharged she was treated for DKA. I seen this morning patient resting in bed comfortably she is not in pain or distress her blood glucoses trending down. Her BMP shows hypokalemia of 3.2. I repleted her potassium and increase the dose of her Lantus instead of 20 units nightly I changed it to 15 units twice a day.. Reason For Visit: DKA Physical Exam Vital Signs: Temp Pulse Resp BP Pulse Ox 98.0 F 114 H 18 131/76 H 100 12/06/17 11:40 12/06/17 11:40 12/06/17 11:40 12/06/17 11:40 12/06/17 11:40 Intake & Output 12/05/17 12/06/17 12/07/17 06:59 06:59 06:59 Intake Total 3158 16 Output Total 0 Balance 3158 16 Weight 46.2 kg General appearance: PRESENT: no acute distress, well-developed, well-nourished Head exam: PRESENT: atraumatic, normocephalic Eye exam: PRESENT: conjunctiva pink, EOMI, PERRLA. ABSENT: scleral icterus Ear exam: PRESENT: normal external ear exam Mouth exam: PRESENT: moist, tongue midline Neck exam: ABSENT: carotid bruit, JVD, lymphadenopathy, thyromegaly Respiratory exam: PRESENT: clear to auscultation yajaira. ABSENT: rales, rhonchi, wheezes Cardiovascular exam: PRESENT: RRR. ABSENT: diastolic murmur, rubs, systolic murmur Pulses: PRESENT: normal dorsalis pedis pul Vascular exam: PRESENT: normal capillary refill GI/Abdominal exam: PRESENT: normal bowel sounds, soft. ABSENT: distended, guarding, mass, organolmegaly, rebound, tenderness Rectal exam: PRESENT: deferred Extremities exam: PRESENT: full ROM. ABSENT: calf tenderness, clubbing, pedal edema Neurological exam: PRESENT: alert, awake, oriented to person, oriented to place , oriented to time, oriented to situation, CN II-XII grossly intact. ABSENT: motor sensory deficit Psychiatric exam: PRESENT: appropriate affect, normal mood. ABSENT: homicidal ideation, suicidal ideation Skin exam: PRESENT: dry, intact, warm. ABSENT: cyanosis, rash Results Laboratory Results: 12/06/17 12/06/17 12/06/17 02:01 06:21 10:20 Sodium 143.5 140.1 140.3 Potassium 3.9 3.7 3.2 L Chloride 110 H 106 106 Carbon Dioxide 15 L 11 L 20 L Anion Gap 19 23 H 14 BUN 6 L 3 L 3 L Creatinine 0.43 L 0.43 L 0.35 L Est GFR ( Amer) > 60 > 60 > 60 Est GFR (Non-Af Amer) > 60 > 60 > 60 Glucose 105 224 H 108 Calcium 8.6 8.9 9.2 Assessment & Plan - Diagnosis (1) Bipolar disorder Is this a current diagnosis for this admission?: Yes Plan: Patient is taking only gabapentin 300 mg every 8 hours.
[2017-12-06 14:34] LABS: ANION GAP 12 (5-19); BLOOD UREA NITROGEN 2 mg/dL (7-20); CALCIUM 9.1 mg/dL (8.4-10.2); CARBON DIOXIDE 24 mmol/L (22-30); CHLORIDE 105 mmol/L (98-107); GLUCOSE 86 mg/dL (75-110); POTASSIUM 3.2 mmol/L (3.6-5.0); SODIUM 141.3 mmol/L (137-145)
[2017-12-06] MEDS: POTASSIUM CHLORIDE 10 MEQ CAPSULE.ER PO SCH (17:39)
[2017-12-06 19:11] LABS: ANION GAP 19 (5-19); BLOOD UREA NITROGEN 3 mg/dL (7-20); CALCIUM 9.2 mg/dL (8.4-10.2); CARBON DIOXIDE 17 mmol/L (22-30); CHLORIDE 103 mmol/L (98-107); GLUCOSE 350 mg/dL (75-110); POTASSIUM 3.8 mmol/L (3.6-5.0); SODIUM 138.6 mmol/L (137-145)
[2017-12-06] MEDS: GABAPENTIN 300 MG CAPSULE PO SCH (21:07)
[2017-12-06] MEDS: INSULIN GLARGINE,HUM.REC.ANLOG 300 UNIT/3 ML INSULN.PEN SUBCUT SCH (22:16)
[2017-12-06] MEDS ORDERED: INSULIN LISPRO 100 UNIT/ML 3 ML VIAL SUBCUT PRN (22:35)
[2017-12-06 22:44] LABS: BLOOD UREA NITROGEN 7 mg/dL (7-20); CALCIUM 9.6 mg/dL (8.4-10.2)
[2017-12-06 22:50] LABS: ANION GAP 28 (5-19); CHLORIDE 99 mmol/L (98-107)
[2017-12-06 22:51] LABS: CARBON DIOXIDE 12 mmol/L (22-30); SODIUM 138.5 mmol/L (137-145)
[2017-12-06 22:54] LABS: GLUCOSE 478 mg/dL (75-110)
[2017-12-06] MEDS ORDERED: NORMAL SALINE 1000 ML 1,000 ML IV PRN (23:26)
[2017-12-06] MEDS ORDERED: INSULIN, REGULAR 100 UNIT/100 ML NORMAL SALINE IV PRN ×2 (23:32)
[2017-12-07 02:24] LABS: ANION GAP 18 (5-19); BLOOD UREA NITROGEN 6 mg/dL (7-20); CALCIUM 9.4 mg/dL (8.4-10.2); CARBON DIOXIDE 17 mmol/L (22-30); CHLORIDE 107 mmol/L (98-107); GLUCOSE 99 mg/dL (75-110); POTASSIUM 3.3 mmol/L (3.6-5.0); SODIUM 142.4 mmol/L (137-145)
[2017-12-07] MEDS ORDERED: POTASSI CL 20 MEQ/D5-1/2NS 1L 1,000 ML IV ONE (03:53)
[2017-12-07] MEDS: POTASSI CL 20 MEQ/D5-1/2NS 1L 1000 ML IV PRN ×2 (04:23→14:17)
[2017-12-07] MEDS: POTASSIUM CHLORIDE 10 MEQ CAPSULE.ER PO SCH ×2 (06:42→17:13)
[2017-12-07] MEDS: GABAPENTIN 300 MG CAPSULE PO SCH ×3 (06:43→21:20)
[2017-12-07 06:46] LABS: ANION GAP 16 (5-19); BLOOD UREA NITROGEN 4 mg/dL (7-20); CALCIUM 9.2 mg/dL (8.4-10.2); CARBON DIOXIDE 19 mmol/L (22-30); CHLORIDE 106 mmol/L (98-107); GLUCOSE 100 mg/dL (75-110); POTASSIUM 3.7 mmol/L (3.6-5.0); SODIUM 141.2 mmol/L (137-145)
[2017-12-07] MEDS: INSULIN GLARGINE,HUM.REC.ANLOG 300 UNIT/3 ML INSULN.PEN SUBCUT SCH ×2 (09:53→21:19)
[2017-12-07] MEDS: ENOXAPARIN SODIUM INJ 30 MG/0.3 ML DISP.SYRIN SUBCUT SCH (09:53)
[2017-12-07 11:14] LABS: ANION GAP 13 (5-19); BLOOD UREA NITROGEN 3 mg/dL (7-20); CALCIUM 9.2 mg/dL (8.4-10.2); CARBON DIOXIDE 20 mmol/L (22-30); CHLORIDE 106 mmol/L (98-107); GLUCOSE 169 mg/dL (75-110); POTASSIUM 4.1 mmol/L (3.6-5.0); SODIUM 138.9 mmol/L (137-145)
--- NOTE | 2017-12-07 11:51 | PDOC PROGRESS REPORT ---
Subjective Progress Note for:: 12/07/17 Subjective:: Patient seen today she has had a small amount of her breakfast, last night rechecking her sugars went over 400 also her anion gap raised subsequently she was started back on an insulin drip at 1 U/h. He was never started on her Lantus yesterday Reason For Visit: DKA Physical Exam Vital Signs: Temp Pulse Resp BP Pulse Ox 98.4 F 113 H 16 138/91 H 100 12/07/17 07:20 12/07/17 07:20 12/07/17 07:20 12/07/17 07:20 12/07/17 07:20 Intake & Output 12/06/17 12/07/17 12/08/17 06:59 06:59 06:59 Intake Total 3158 2190 Output Total 0 2200 Balance 3158 -10 Weight 46.2 kg 46.8 kg General appearance: PRESENT: no acute distress, well-developed, well-nourished Head exam: PRESENT: atraumatic, normocephalic Eye exam: PRESENT: conjunctiva pink, EOMI, PERRLA. ABSENT: scleral icterus Ear exam: PRESENT: normal external ear exam Mouth exam: PRESENT: moist, tongue midline Neck exam: PRESENT: full ROM. ABSENT: carotid bruit, JVD, lymphadenopathy, thyromegaly Respiratory exam: PRESENT: clear to auscultation yajaira, symmetrical, unlabored Cardiovascular exam: PRESENT: RRR. ABSENT: diastolic murmur, rubs, systolic murmur Pulses: PRESENT: normal dorsalis pedis pul, +2 pedal pulses bilateral Vascular exam: PRESENT: normal capillary refill GI/Abdominal exam: PRESENT: normal bowel sounds, soft. ABSENT: distended, guarding, mass, organolmegaly, rebound, tenderness Rectal exam: PRESENT: deferred Extremities exam: PRESENT: full ROM Neurological exam: PRESENT: alert, awake, oriented to person, oriented to place , oriented to time, oriented to situation, CN II-XII grossly intact. ABSENT: motor sensory deficit Psychiatric exam: PRESENT: appropriate affect, normal mood. ABSENT: homicidal ideation, suicidal ideation Skin exam: PRESENT: dry, intact, warm. ABSENT: cyanosis, rash Results Laboratory Results: 12/07/17 10:11 12/06/17 12/06/17 12/06/17 13:49 18:30 22:08 Sodium 141.3 138.6 138.5 Potassium 3.2 L 3.8 4.0 Chloride 105 103 99 Carbon Dioxide 24 17 L 12 L Anion Gap 12 19 28 H BUN 2 L 3 L 7 Creatinine 0.37 L 0.48 L 0.57 Est GFR ( Amer) > 60 > 60 > 60 Est GFR (Non-Af Amer) > 60 > 60 > 60 Glucose 86 350 H 478 H* Calcium 9.1 9.2 9.6 12/07/17 12/07/17 12/07/17 02:02 06:09 10:11 Sodium 142.4 141.2 138.9 Potassium 3.3 L 3.7 4.1 Chloride 107 106 106 Carbon Dioxide 17 L 19 L 20 L Anion Gap 18 16 13 BUN 6 L 4 L 3 L Creatinine 0.45 L 0.39 L 0.41 L Est GFR ( Amer) > 60 > 60 > 60 Est GFR (Non-Af Amer) > 60 > 60 > 60 Glucose 99 100 169 H Calcium 9.4 9.2 9.2 Assessment & Plan - Diagnosis (1) DKA (diabetic ketoacidoses) Qualifiers: Diabetes mellitus type: type 1 Diabetes mellitus complication detail: without coma Qualified Code(s): E10.10 - Type 1 diabetes mellitus with ketoacidosis without coma Is this a current diagnosis for this admission?: Yes Plan: We will continue on an insulin drip she will get her Lantus 15 units this morning as she only got her evening dose of Lantus at 10 PM we will recheck a BMP 7 and if her anion gap and CO2 rises we will discontinue the insulin drip and adjust her Lantus accordingly. Discussed with her nursing patient when she goes home will require Lantus twice daily and pre-meal insulin also. (2) Bipolar disorder Qualifiers: Current bipolar episode type: depressed Current episode severity: mild Is this a current diagnosis for this admission?: Yes Plan: cont. on gabapentin. - Time Time Spent with patient: 15-24 minutes - Inpatient Certification Medical Necessity: Failure to Improve With Outpatient Therapy, Significant Comorbidiites Make Outpatient Treatment Too Risky, Need For IV Fluids Post Hospital Care: D/C Accounting Practice Manager Documentation
[2017-12-07] MEDS: DEXTROSE 5%-1/2 NORMAL SALINE 1,000 ML IV PRN (14:12)
[2017-12-07 14:37] LABS: ANION GAP 12 (5-19); BLOOD UREA NITROGEN 3 mg/dL (7-20); CALCIUM 9.6 mg/dL (8.4-10.2); CARBON DIOXIDE 22 mmol/L (22-30); CHLORIDE 106 mmol/L (98-107); GLUCOSE 165 mg/dL (75-110); POTASSIUM 4.3 mmol/L (3.6-5.0); SODIUM 140.4 mmol/L (137-145)
[2017-12-07] MEDS: INSULIN LISPRO 100 UNIT/ML 3 ML VIAL SUBCUT PRN ×2 (17:00→21:19)
[2017-12-07 18:34] LABS: ANION GAP 15 (5-19); BLOOD UREA NITROGEN 4 mg/dL (7-20); CARBON DIOXIDE 23 mmol/L (22-30); CHLORIDE 105 mmol/L (98-107); GLUCOSE 180 mg/dL (75-110); POTASSIUM 3.9 mmol/L (3.6-5.0); SODIUM 143.4 mmol/L (137-145)
[2017-12-07 22:46] LABS: ANION GAP 14 (5-19); BLOOD UREA NITROGEN 5 mg/dL (7-20); CALCIUM 9.7 mg/dL (8.4-10.2); CARBON DIOXIDE 23 mmol/L (22-30); CHLORIDE 106 mmol/L (98-107); GLUCOSE 163 mg/dL (75-110); POTASSIUM 3.6 mmol/L (3.6-5.0); SODIUM 143.3 mmol/L (137-145)
[2017-12-08 02:13] LABS: ANION GAP 13 (5-19); BLOOD UREA NITROGEN 5 mg/dL (7-20); CALCIUM 9.5 mg/dL (8.4-10.2); CARBON DIOXIDE 26 mmol/L (22-30); CHLORIDE 105 mmol/L (98-107); GLUCOSE 195 mg/dL (75-110); POTASSIUM 3.7 mmol/L (3.6-5.0); SODIUM 143.6 mmol/L (137-145)
[2017-12-08] MEDS: POTASSIUM CHLORIDE 10 MEQ CAPSULE.ER PO SCH (05:30)
[2017-12-08] MEDS: GABAPENTIN 300 MG CAPSULE PO SCH ×2 (05:31→14:20)
[2017-12-08 06:33] LABS: ANION GAP 13 (5-19); BLOOD UREA NITROGEN 6 mg/dL (7-20); CALCIUM 9.7 mg/dL (8.4-10.2); CARBON DIOXIDE 24 mmol/L (22-30); CHLORIDE 105 mmol/L (98-107); GLUCOSE 193 mg/dL (75-110); POTASSIUM 3.9 mmol/L (3.6-5.0)
[2017-12-08] MEDS: INSULIN LISPRO 100 UNIT/ML 3 ML VIAL SUBCUT PRN ×2 (07:39→12:29)
[2017-12-08] MEDS ORDERED: INSULIN GLARGINE,HUM.REC.ANLOG 300 UNIT/3 ML INSULN.PEN SUBCUT SCH (10:00)
[2017-12-08] MEDS: ENOXAPARIN SODIUM INJ 30 MG/0.3 ML DISP.SYRIN SUBCUT SCH (10:03)
[2017-12-08 11:42] LABS: ANION GAP 15 (5-19); BLOOD UREA NITROGEN 7 mg/dL (7-20); CALCIUM 9.4 mg/dL (8.4-10.2); CARBON DIOXIDE 24 mmol/L (22-30); CHLORIDE 103 mmol/L (98-107); GLUCOSE 165 mg/dL (75-110); POTASSIUM 3.7 mmol/L (3.6-5.0); SODIUM 141.9 mmol/L (137-145)
[2017-12-08] MEDS: ACETAMINOPHEN 325 MG TABLET PO PRN (12:29)
[2017-12-08 13:18] LABS: ANION GAP 13 (5-19); BLOOD UREA NITROGEN 9 mg/dL (7-20); CALCIUM 9.9 mg/dL (8.4-10.2); CARBON DIOXIDE 25 mmol/L (22-30); CHLORIDE 102 mmol/L (98-107); GLUCOSE 223 mg/dL (75-110); POTASSIUM 3.7 mmol/L (3.6-5.0); SODIUM 140.4 mmol/L (137-145)
[2017-12-08 14:48] LABS: ANION GAP 16 (5-19); BLOOD UREA NITROGEN 9 mg/dL (7-20); CALCIUM 9.5 mg/dL (8.4-10.2); CARBON DIOXIDE 23 mmol/L (22-30); CHLORIDE 102 mmol/L (98-107); GLUCOSE 195 mg/dL (75-110); POTASSIUM 3.8 mmol/L (3.6-5.0); SODIUM 141.4 mmol/L (137-145)
--- NOTE | 2017-12-08 15:44 | PDOC DISCHARGE SUMMARY ---
General - Admit/Disc Date/PCP Admission Date/Primary Care Provider: 12/05/17 22:19 WASHINGTON COOMBS MD Discharge Date: 12/08/17 - Discharge Diagnosis (1) DKA (diabetic ketoacidoses) Is this a current diagnosis for this admission?: Yes (2) Bipolar disorder Is this a current diagnosis for this admission?: Yes - Additional Information Discharge Diet: Diabetic Discharge Activity: Activity As Tolerated Prescriptions: Insulin Glargine,Hum.rec.anlog [Lantus Insulin 100 Unit/mL] 20 unit SUBCUT Q12 30 Days #90 insuln.pen NS Insulin Aspart [Novolog Flexpen] 0 unit SQ .SLIDINGSCALE 30 Days #60 insuln.pen Potassium Chloride [Klor-Con 10 Meq Capsule ER] 40 meq PO Q12A 30 Days #60 capsule.er Home Medications: Gabapentin [Neurontin 300 mg Capsule] 300 mg PO Q8 12/05/17 Insulin Aspart [Novolog Flexpen] 0 unit SQ .SLIDINGSCALE 30 Days #60 insuln.pen 12/08/17 Insulin Glargine,Hum.rec.anlog [Lantus Insulin 100 Unit/mL] 20 unit SUBCUT Q12 30 Days #90 insuln.pen NS 12/08/17 Potassium Chloride [Klor-Con 10 Meq Capsule ER] 40 meq PO Q12A 30 Days #60 capsule.er 12/08/17 History of Present Illness History of Present Illness: DAVID FARIAS is a 22 year old female Hospital Course Hospital Course: Patient was admitted on IV fluid resuscitation and potassium chloride, she was put on an insulin drip. Blood cultures were done which showed no evidence of overt infection laboratory showed evidence of high anion gap metabolic acidosis. After 48 hours attempts were made to resume Lantus but they were not started prior to the patient discontinuation of insulin drips so it was required to be reinstituted the insulin drip after 2 doses of Lantus which were increased to 20 units twice daily patient her anion gap went down to 12 and her CO2 sam to 22. Insulin short acting was added. Prior to discharge her blood sugar was 160s, anion gap was 12 bicarb was 24 she was able to tolerate her diet and she was felt stable for discharge she did complain of neuropathic pain for which her gabapentin was increased to 300 4 times daily reemphasized the importance of diet and medicine compliance. Physical Exam Vital Signs: Temp Pulse Resp BP Pulse Ox 97.8 F 125 H 17 119/66 100 12/08/17 11:34 12/08/17 11:34 12/08/17 11:34 12/08/17 11:34 12/08/17 11:34 Intake & Output 12/07/17 12/08/17 12/09/17 06:59 06:59 06:59 Intake Total 2190 1878 118 Output Total 2200 1877 118 Weight 46.8 kg 45.5 kg General appearance: PRESENT: no acute distress, well-developed, well-nourished Head exam: PRESENT: atraumatic, normocephalic Eye exam: PRESENT: conjunctiva pink, EOMI, PERRLA. ABSENT: scleral icterus Ear exam: PRESENT: normal external ear exam Mouth exam: PRESENT: moist, tongue midline Neck exam: PRESENT: full ROM. ABSENT: carotid bruit, JVD, lymphadenopathy, thyromegaly Respiratory exam: PRESENT: clear to auscultation yajaira Cardiovascular exam: PRESENT: RRR. ABSENT: diastolic murmur, rubs, systolic murmur Pulses: PRESENT: normal dorsalis pedis pul, +2 pedal pulses bilateral Vascular exam: PRESENT: normal capillary refill GI/Abdominal exam: PRESENT: normal bowel sounds, soft. ABSENT: distended, guarding, mass, organolmegaly, rebound, tenderness Rectal exam: PRESENT: deferred Musculoskeletal exam: PRESENT: ambulatory, full ROM Neurological exam: PRESENT: alert, awake, oriented to person, oriented to place , oriented to time, oriented to situation, reflexes normal, CN II-XII grossly intact, normal gait Psychiatric exam: PRESENT: appropriate affect Skin exam: PRESENT: dry, intact, warm. ABSENT: cyanosis, rash Results Laboratory Results: 12/08/17 14:15 12/07/17 12/07/17 12/08/17 18:05 22:10 01:50 Sodium 143.4 143.3 143.6 Potassium 3.9 3.6 3.7 Chloride 105 106 105 Carbon Dioxide 23 23 26 Anion Gap 15 14 13 BUN 4 L 5 L 5 L Creatinine 0.46 L 0.44 L 0.47 L Est GFR ( Amer) > 60 > 60 > 60 Est GFR (Non-Af Amer) > 60 > 60 > 60 Glucose 180 H 163 H 195 H Calcium 10.0 9.7 9.5 12/08/17 12/08/17 12/08/17 06:03 10:35 12:39 Sodium 142.0 141.9 140.4 Potassium 3.9 3.7 3.7 Chloride 105 103 102 Carbon Dioxide 24 24 25 Anion Gap 13 15 13 BUN 6 L 7 9 Creatinine 0.38 L 0.44 L 0.41 L Est GFR ( Amer) > 60 > 60 > 60 Est GFR (Non-Af Amer) > 60 > 60 > 60 Glucose 193 H 165 H 223 H Calcium 9.7 9.4 9.9 12/08/17 14:15 Sodium 141.4 Potassium 3.8 Chloride 102 Carbon Dioxide 23 Anion Gap 16 BUN 9 Creatinine 0.49 L Est GFR ( Amer) > 60 Est GFR (Non-Af Amer) > 60 Glucose 195 H Calcium 9.5 Qualifiers - * PATIENT BEING DISCHARGED WITH ANY OF THE FOLLOWING DIAGNOSIS: No VTE patient discharged on overlapping Therapy?: Yes Plan Discharge Plan: Has been given prescriptions for her Lantus and her Humalog with sliding scale, prescriptions for Accu-Chek Nila strips. She will have a follow-up on December 13 in my office. She will also get a prescription for potassium chloride. Time Spent: Less than 30 Minutes
[2017-12-08 16:07] VITALS: BP 124/69
== END 2017-12-08 16:39 | disposition home or self-care (01) | DRG 638 ==
LOC: ER 18:49 → EH 22:19 → 3N 23:35
PROVIDERS: ADMIT Internal Medicine; ATTEND Internal Medicine
DX: E10.10 Type 1 diabetes mellitus with ketoacidosis without coma (principal); E46 Unspecified protein-calorie malnutrition; Z68.1 Body mass index [BMI] 19.9 or less, adult; F31.9 Bipolar disorder, unspecified; E10.40 Type 1 diabetes mellitus with diabetic neuropathy, unspecified; Z79.4 Long term (current) use of insulin; Z82.3 Family history of stroke; Z83.3 Family history of diabetes mellitus; Z82.49 Family history of ischemic heart disease and other diseases of the circulatory system
CPT/HCPCS: 36415; 80048; 80053; 81001; 82803; 82962; 85025; 99285; J1815; J3480; J3490; J7030

== ENCOUNTER 2018-01-29 22:46 | Inpatient (IN) | payer MEDICAID ==
[2018-01-30] MEDS ORDERED: RINGERS SOLUTION,LACTATED 1,000 ML IV PRN
[2018-01-30] MEDS ORDERED: ONDANSETRON HCL INJ/PF 4 MG/2 ML SDV IV ONE (00:57)
[2018-01-30 01:11] LABS: ALANINE AMINOTRANSFERASE 33 U/L (9-52); ALKALINE PHOSPHATASE 140 U/L (38-126); ASPARTATE AMINO TRANSFERASE 23 U/L (14-36); BILIRUBIN,DIRECT 0.4 mg/dL (0.0-0.4); BILIRUBIN,TOTAL 0.7 mg/dL (0.2-1.3); BLOOD UREA NITROGEN 13 mg/dL (7-20); CALCIUM 11.1 mg/dL (8.4-10.2); POTASSIUM 5.3 mmol/L (3.6-5.0)
[2018-01-30 01:17] LABS: CHLORIDE 97 mmol/L (98-107); SODIUM 142.1 mmol/L (137-145)
[2018-01-30 01:19] LABS: CARBON DIOXIDE 11 mmol/L (22-30)
[2018-01-30 01:20] LABS: ANION GAP 34 (5-19)
--- NOTE | 2018-01-30 01:20 | ER Document Report ---
ED General - General Chief Complaint: Nausea/Vomiting Stated Complaint: VOMITING Time Seen by Provider: 01/29/18 23:53 Notes: Patient is a 23-year-old female who presents with concern that she is in DKA. She says for last 24 hours she has had a lot of vomiting and has felt unwell her blood sugars have run high. She says been using her insulin however her sugars continue on high and she continued to have vomiting. She denies any pain other than some mild abdominal cramping. No recent fevers or infections. No chest pain. No other complaints at this time. She has been in DKA before and says this feels very similar. She denies any recent changes in her insulin regimen. TRAVEL OUTSIDE OF THE [place] IN LAST 30 DAYS: No - Related Data Allergies/Adverse Reactions: No Known Allergies Allergy (Verified 12/05/17 18:50) Past Medical History - Social History Smoking Status: Never Smoker Chew tobacco use (# tins/day): No Frequency of alcohol use: None Drug Abuse: None Family History: CVA, DM - Mother, Hypertension Patient has suicidal ideation: No Patient has homicidal ideation: No Endocrine Medical History: Reports: Hx Diabetes Mellitus Type 1 - w/neuropathy DKA Renal/ Medical History: Denies: Hx Peritoneal Dialysis Psychiatric Medical History: Reports: Hx Bipolar Disorder, Hx Depression - Immunizations Hx Diphtheria, Pertussis, Tetanus Vaccination: No Review of Systems - Review of Systems Notes: My Normal Review Basic REVIEW OF SYSTEMS: CONSTITUTIONAL : Denies fever, chills, or sweats. Denies recent illness. EENT: Denies eye, ear, throat, or mouth pain or symptoms. Denies nasal or sinus congestion. CARDIOVASCULAR: Denies chest pain. RESPIRATORY: Denies cough, cold, or chest congestion. Denies shortness of breath, difficulty breathing, or wheezing. GASTROINTESTINAL: Some abdominal cramping.. recurrent vomiting. MUSCULOSKELETAL: Denies neck or back pain or joint pain or swelling. SKIN: Denies rash or skin lesions. NEUROLOGICAL: Denies altered mental status or loss of consciousness. Denies headache. Denies weakness or paralysis or loss of use of either side. Denies problems with gait or speech. Denies sensory or motor loss. ALL OTHER SYSTEMS REVIEWED AND NEGATIVE. Physical Exam - Vital signs Vitals: Temp Pulse BP Pulse Ox 97.8 F 121 H 123/76 100 01/29/18 22:54 01/29/18 22:54 01/29/18 22:54 01/29/18 22:54 - Notes Notes: General Appearance: Well nourished, alert, cooperative, no acute distress, no obvious discomfort. Ill-appearing. Vitals: reviewed, See vital signs table. Head: no swelling or tenderness to the head Eyes: PERRL, EOMI, Conjuctiva clear Mouth: Some decreasd moisture Lungs: No wheezing, No rales, No rhonci, No accessory muscle use, good air exchange bilaterally. Heart: Tachycardic rate, Regular rythm, No murmur, no rub Abdomen: Normal BS, soft, No rigidity, No abdominal tenderness, No guarding, no rebound, Extremities: strength 5/5 in all extremities, good pulses in all extremities, no swelling or tenderness in the extremities, no edema. Skin: warm, dry, appropriate color, no rash Neuro: speech clear, oriented x 3, normal affect, responds appropriately to questions. Course - Re-evaluation Re-evalutation: 01/30/18 02:12 Patient's family is out of control. She received 2 L of fluids. Of note placed on a maintenance drip. Her blood sugar is elevated with metabolic acidosis consistent with DKA. Have ordered an insulin drip and inform the nurses to start it. I have spoken with the hospitalist, Dr. Morfin, who agrees to dilate the patient for admission. Dictation of this chart was performed using voice recognition software; therefore, there may be some unintended grammatical errors. - Vital Signs Vital signs: Temp Pulse Resp BP Pulse Ox 97.8 F 121 H 123/76 100 01/29/18 22:54 01/29/18 22:54 01/29/18 22:54 01/29/18 22:54 - Laboratory Result Diagrams: 01/30/18 01:28 01/30/18 00:35 Laboratory results interpreted by me: 01/29/18 01/30/18 01/30/18 22:57 00:35 00:35 RDW VBG pH VBG pCO2 VBG HCO3 Potassium 5.3 H Chloride 97 L Carbon Dioxide 11 L Anion Gap 34 H Glucose 466 H* POC Glucose 425 H* Calcium 11.1 H Alkaline Phosphatase 140 H Urine Glucose (UA) >=500 H Urine Ketones 80 H Urine Ascorbic Acid 20 H 01/30/18 01/30/18 01:28 01:28 RDW 14.5 H VBG pH 7.25 L VBG pCO2 21.8 L VBG HCO3 9.3 L Potassium Chloride Carbon Dioxide Anion Gap Glucose POC Glucose Calcium Alkaline Phosphatase Urine Glucose (UA) Urine Ketones Urine Ascorbic Acid Critical Care Note - Critical Care Note Total time excluding time spent on procedures (mins): 35 Comments: Critical care time for this patient not including time spent on procedures approximately 35 minutes due to frequent re-evaluations, management of blood sugar, management of dehydration from DKA. Discharge - Discharge Clinical Impression: DKA (diabetic ketoacidoses) Qualifiers: Diabetes mellitus type: type 1 Diabetes mellitus complication detail: without coma Qualified Code(s): E10.10 - Type 1 diabetes mellitus with ketoacidosis without coma Vomiting Qualifiers: Vomiting type: unspecified Vomiting Intractability: non-intractable Nausea presence: with nausea Qualified Code(s): R11.2 - Nausea with vomiting, unspecified Condition: Stable Disposition: ADMITTED INPATIENT Admitting Provider: Hospitalist Unit Admitted: IMCU Referrals: WASHINGTON COOMBS MD [Primary Care Provider] - Follow up as needed
[2018-01-30 01:22] LABS: GLUCOSE 466 mg/dL (75-110)
[2018-01-30 01:35] LABS: APPEARANCE,URINE CLEAR; BILIRUBIN,URINE NEGATIVE (NEGATIVE); COLOR,URINE STRAW; GLUCOSE, URINE >=500 mg/dL (NEGATIVE); KETONES,URINE 80 mg/dL (NEGATIVE); LEUKOCYTE ESTERASE,URINE NEGATIVE (NEGATIVE); NITRITE,URINE NEGATIVE (NEGATIVE); PROTEIN,URINE NEGATIVE (NEGATIVE); URINE SPECIFIC GRAVITY 1.022; UROBILINOGEN,URINE NEGATIVE mg/dL (<2.0)
[2018-01-30 01:43] LABS: ABSOLUTE LYMPHOCYTES (AUTO) 1.6 10^3/uL (0.5-4.7); ABSOLUTE NEUT (AUTO) 7.3 10^3/uL (1.7-8.2); BASOPHILS % (AUTO) 0.5 % (0-2); HEMATOCRIT 39.3 % (36.0-47.0); HEMOGLOBIN 12.6 g/dL (12.0-15.5); LYMPHOCYTES % (AUTO) 16.5 % (13-45); MEAN CORPUSCULAR HEMOGLOBIN 28.8 pg (27.0-33.4); MEAN CORPUSCULAR HGB CONC 32.1 g/dL (32.0-36.0); MEAN CORPUSCULAR VOLUME 90 fl (80-97); PLATELET COUNT 387 10^3/uL (150-450); RED BLOOD COUNT 4.38 10^6/uL (3.72-5.28); RED CELL DISTRIBUTION WIDTH 14.5 % (11.5-14.0); TOTAL CELLS COUNTED % (AUTO) 100 %
[2018-01-30 01:44] LABS: VENOUS BLOOD BASE EXCESS -15.8 mmol/L; VENOUS BLOOD HCO3 9.3 mmol/L (20-32); VENOUS BLOOD PCO2 21.8 mmHg (35-63); VENOUS BLOOD PH 7.25 (7.30-7.42)
[2018-01-30] MEDS ORDERED: NORMAL SALINE 100 ML with INSULIN REGULAR, HUMAN 100 UNIT IV PRN ×4 (02:04→02:41)
[2018-01-30] MEDS ORDERED: GLUCAGON,HUMAN RECOMB 1 MG INJ IM PRN (02:04)
[2018-01-30] MEDS ORDERED: DEXTROSE 40% GEL 15 GM TUBE PO PRN ×4 (02:04→02:24)
[2018-01-30] MEDS ORDERED: DEXTROSE 50%-WATER 25 GM/50 ML DISP.SYRIN IV PRN ×4 (02:04→02:24)
[2018-01-30] MEDS ORDERED: RINGERS SOLUTION,LACTATED 1,000 ML IV ONE (02:06)
[2018-01-30] MEDS ORDERED: INSULIN REG, HUMAN 100 UNIT/ML 3 ML VIAL (PYX) ONE (02:19)
[2018-01-30] MEDS ORDERED: NORMAL SALINE 1000 ML 1,000 ML IV PRN (02:24)
[2018-01-30] MEDS ORDERED: MAG HYDROX/AL HYDROX/SIMETH SUSP 30 ML UDCUP PO PRN (02:24)
[2018-01-30] MEDS ORDERED: ACETAMINOPHEN 325 MG TABLET PO PRN (02:24)
[2018-01-30] MEDS ORDERED: TEMAZEPAM 7.5 MG CAPSULE PO PRN (02:24)
[2018-01-30] MEDS ORDERED: PROMETHAZINE HCL INJ 25 MG/1 ML VIAL IV PRN (02:24)
[2018-01-30] MEDS ORDERED: GLUCAGON,HUMAN RECOMB 1 MG INJ SUBCUT PRN (02:24)
[2018-01-30] MEDS ORDERED: PROMETHAZINE HCL 25 MG TABLET PO PRN (02:24)
[2018-01-30] MEDS ORDERED: NORMAL SALINE 1000 ML 1,000 ML IV ONE (02:45)
[2018-01-30] MEDS ORDERED: POTASSI CL 40 MEQ/NS 1L 1,000 ML IV PRN (03:03)
--- NOTE | 2018-01-30 03:03 | PDOC H&P ---
History of Present Illness Admission Date/PCP: 01/30/18 02:19 WASHINGTON COOMBS MD Patient complains of: Nausea and vomiting History of Present Illness: DAVID FARIAS is a 23 year old female who presents with concern that she is in DKA. She says for last 24 hours she has had a lot of vomiting and has felt unwell her blood sugars have run high. She says been using her insulin however her sugars continue on high and she continued to have vomiting. She denies any pain other than some mild abdominal cramping. No recent fevers or infections. No chest pain. No other complaints at this time. She has been in DKA before and says this feels very similar. She denies any recent changes in her insulin regimen. Blood sugar in the emergency department was 466 with a potassium of 5.3,vbg 7.25 /21, bicarb 9.3 Past Medical History Endocrine Medical History: Reports: Diabetes Mellitus Type 1 - w/neuropathy DKA Psychiatric Medical History: Reports: Bipolar Disorder, Depression Past Surgical History Past Surgical History: Reports: None Social History Smoking Status: Never Smoker Frequency of Alcohol Use: None Hx Recreational Drug Use: No Drugs: None Hx Prescription Drug Abuse: No Family History Family History: CVA, DM - Mother, Hypertension Parental Family History Reviewed: Yes - As above Children Family History Reviewed: NA Sibling(s) Family History Reviewed.: NA Medication/Allergy Home Medications: Gabapentin [Neurontin 300 mg Capsule] 300 mg PO Q8 12/05/17 Insulin Aspart [Novolog Flexpen] 0 unit SQ .SLIDINGSCALE 30 Days #60 insuln.pen 12/08/17 Insulin Glargine,Hum.rec.anlog [Lantus Insulin 100 Unit/mL] 20 unit SUBCUT Q12 30 Days #90 insuln.pen NS 12/08/17 Potassium Chloride [Klor-Con 10 Meq Capsule ER] 40 meq PO Q12A 30 Days #60 capsule.er 12/08/17 Allergies/Adverse Reactions: No Known Allergies Allergy (Verified 12/05/17 18:50) Review of Systems Review of Systems: As outlined in the HPI, others negative Physical Exam Vital Signs: Temp Pulse Resp BP Pulse Ox 97.8 F 121 H 123/76 100 01/29/18 22:54 01/29/18 22:54 01/29/18 22:54 01/29/18 22:54 Additional comments: General appearance: Well-developed, thin, alert and cooperative, and appears to be in no acute distress Head: Normocephalic Eyes: PEERL, EOMI, vision is grossly intact. Ears: External auditory canal and tympanic membranes clear, hearing grossly intact. Nose: No nasal discharge. Throat: Oral cavity and pharynx normal. No inflammation, swelling, exudate or lesions. Neck: Neck supple, nontender without lymphadenopathy, masses or thyromegaly. Cardiac: Normal S1 and S2. No S3, S4 or murmurs. Rhythm is regular. There is no peripheral edema, cyanosis or pallor. Extremities are warm and well perfused. Capillary refill is less than 2 seconds. No carotid bruits. Lungs: Clear to auscultation and percussion without rales, rhonchi, wheezing or diminished breath sounds. Not using accessory muscles. Abdomen: Positive bowel sounds. Soft. Nondistended, nontender. No guarding or rebound. No masses. No hepatosplenomegaly Extremities: No significant deformity or joint abnormality. No edema. Peripheral pulses intact. No varicosities. Neurological: Cranial nerves II through XII grossly intact. Strength and sensation symmetric and intact throughout. Reflexes 2+ throughout. Skin: Skin normal color, texture and turgor with no lesions or eruptions, warm and dry. Psychiatric: The mental examination revealed the patient was oriented to person , place, and time. The patient was able to demonstrate good judgment on recent , without hallucinations, abnormal affect or abnormal behaviors. Results Laboratory Results: 01/29/18 01/30/18 01/30/18 22:57 00:35 00:35 WBC RBC Hgb Hct MCV MCH MCHC RDW Plt Count Seg Neutrophils % Lymphocytes % Monocytes % Eosinophils % Basophils % Absolute Neutrophils Absolute Lymphocytes Absolute Monocytes Absolute Eosinophils Absolute Basophils VBG pH VBG pCO2 VBG HCO3 Sodium 142.1 Potassium 5.3 H Chloride 97 L Carbon Dioxide 11 L Anion Gap 34 H BUN 13 Creatinine 0.74 Est GFR ( Amer) > 60 Est GFR (Non-Af Amer) > 60 Glucose 466 H* POC Glucose 425 H* Calcium 11.1 H Total Bilirubin 0.7 Direct Bilirubin 0.4 AST 23 ALT 33 Alkaline Phosphatase 140 H Total Protein 8.0 Albumin 5.0 Urine Color STRAW Urine Appearance CLEAR Urine pH 5.0 Ur Specific [place] 1.022 Urine Protein NEGATIVE Urine Glucose (UA) >=500 H Urine Ketones 80 H Urine Blood NEGATIVE Urine Nitrite NEGATIVE Urine Bilirubin NEGATIVE Urine Urobilinogen NEGATIVE Ur Leukocyte Esterase NEGATIVE Urine WBC (Auto) 1 Urine RBC (Auto) 1 U Hyaline Cast (Auto) 1 Squamous Epi Cells Auto <1 Urine Mucus (Auto) RARE Urine Ascorbic Acid 20 H 01/30/18 01/30/18 01:28 01:28 WBC 10.0 RBC 4.38 Hgb 12.6 Hct 39.3 MCV 90 MCH 28.8 MCHC 32.1 RDW 14.5 H Plt Count 387 Seg Neutrophils % 73.0 Lymphocytes % 16.5 Monocytes % 10.0 Eosinophils % 0.0 Basophils % 0.5 Absolute Neutrophils 7.3 Absolute Lymphocytes 1.6 Absolute Monocytes 1.0 Absolute Eosinophils 0.0 Absolute Basophils 0.0 VBG pH 7.25 L VBG pCO2 21.8 L VBG HCO3 9.3 L Sodium Potassium Chloride Carbon Dioxide Anion Gap BUN Creatinine Est GFR ( Amer) Est GFR (Non-Af Amer) Glucose POC Glucose Calcium Total Bilirubin Direct Bilirubin AST ALT Alkaline Phosphatase Total Protein Albumin Urine Color Urine Appearance Urine pH Ur Specific [place] Urine Protein Urine Glucose (UA) Urine Ketones Urine Blood Urine Nitrite Urine Bilirubin Urine Urobilinogen Ur Leukocyte Esterase Urine WBC (Auto) Urine RBC (Auto) U Hyaline Cast (Auto) Squamous Epi Cells Auto Urine Mucus (Auto) Urine Ascorbic Acid Assessment & Plan - Diagnosis (1) DKA (diabetic ketoacidoses) Qualifiers: Diabetes mellitus type: type 1 Diabetes mellitus complication detail: without coma Qualified Code(s): E10.10 - Type 1 diabetes mellitus with ketoacidosis without coma Is this a current diagnosis for this admission?: Yes Plan: Will complete 3 L IV fluids bolus followed by normal saline with 40 mEq of potassium chloride running at 150 cc/h. The patient denies being noncompliant with her medications. We will continue with insulin infusion. BMP every 4 hours. Will do an ABG in the morning. Hemoglobin A1c. Accu-Cheks q. one hour. N.p.o. for now. Replete electrolytes as necessary. Telemetry monitoring. - Time Time Spent: 30 to 50 Minutes - Inpatient Certification Based on my medical assessment, after consideration of the patient's comorbidities, presenting symptoms, or acuity I expect that the services needed warrant INPATIENT care.: Yes I certify that my determination is in accordance with my understanding of Medicare's requirements for reasonable and necessary INPATIENT services [42 CFR 412.3e].: Yes Medical Necessity: Risk of Complication if Not Cared For in Hospital
[2018-01-30 04:58] LABS: BLOOD UREA NITROGEN 12 mg/dL (7-20); CALCIUM 10.3 mg/dL (8.4-10.2)
[2018-01-30 05:03] LABS: CHLORIDE 103 mmol/L (98-107); SODIUM 142.8 mmol/L (137-145)
[2018-01-30 05:36] LABS: CARBON DIOXIDE 7 mmol/L (22-30); GLUCOSE 544 mg/dL (75-110)
[2018-01-30 05:45] LABS: ANION GAP 33 (5-19)
[2018-01-30 07:14] LABS: ARTERIAL BLOOD H2CO3 0.59 mmol/L (1.05-1.35); ARTERIAL BLOOD O2 SATURATION 98.7 % (94-98); ARTERIAL BLOOD PH 7.37 (7.35-7.45); ARTERIAL BLOOD PO2 137.6 mmHg (80-100); ARTERIAL BLOOD TOTAL CO2 11.6 mmol/L (21-25)
[2018-01-30 07:24] LABS: ARTERIAL BLOOD FIO2 ROOM AIR
[2018-01-30 07:27] LABS: ARTERIAL BLOOD PCO2 19.7 mmHg (35-45)
[2018-01-30] MEDS ORDERED: INSULIN LISPRO 100 UNIT/ML 3 ML VIAL SUBCUT PRN (08:30)
[2018-01-30] MEDS ORDERED: ONDANSETRON 4 MG TAB.RAPDIS PO PRN (08:40)
--- NOTE | 2018-01-30 08:54 | EKG REPORT ---
SEVERITY:- OTHERWISE NORMAL ECG - SINUS TACHYCARDIA : Confirmed by: Kenzie Nunes MD 30-Jan-2018 08:53:55
[2018-01-30] MEDS: DEXTROSE 5%-WATER 1000 ML 1,000 ML with SODIUM BICARBONATE 150 MEQ IV PRN ×6 (09:44→17:54)
[2018-01-30] MEDS ORDERED: INSULIN GLARGINE,HUM.REC.ANLOG 300 UNIT/3 ML INSULN.PEN SUBCUT SCH (10:00)
[2018-01-30] MEDS: PANTOPRAZOLE SODIUM 40 MG VIAL IV SCH ×2 (10:27→22:06)
[2018-01-30] MEDS: ENOXAPARIN SODIUM INJ 40 MG/0.4 ML DISP.SYRIN SUBCUT SCH (10:31)
[2018-01-30 10:38] LABS: VENOUS BLOOD BASE EXCESS -8.8 mmol/L; VENOUS BLOOD HCO3 16.9 mmol/L (20-32); VENOUS BLOOD PCO2 36.1 mmHg (35-63); VENOUS BLOOD PH 7.29 (7.30-7.42)
[2018-01-30 10:43] LABS: BLOOD UREA NITROGEN 12 mg/dL (7-20); CALCIUM 9.9 mg/dL (8.4-10.2); CHLORIDE 105 mmol/L (98-107); GLUCOSE 291 mg/dL (75-110); SODIUM 139.9 mmol/L (137-145)
[2018-01-30 10:55] LABS: ANION GAP 19 (5-19)
[2018-01-30 11:04] LABS: CARBON DIOXIDE 16 mmol/L (22-30)
--- NOTE | 2018-01-30 11:05 | PDOC PROGRESS REPORT ---
Subjective Progress Note for:: 01/30/18 Subjective:: Patient states to no nausea in the last 12 hours denies abdominal pain, fever or chills she is still on an insulin drip her morning labs are still pending as to see if she still has high anion gap metabolic acidosis. She states to being compliant with her medication. Though she was not compliant with her diet and she just recently returned from a trip from [place] last . Reason For Visit: DKA Physical Exam Vital Signs: Temp Pulse Resp BP Pulse Ox 98.0 F 121 H 21 H 109/59 L 100 01/30/18 08:00 01/29/18 22:54 01/30/18 10:01 01/30/18 10:01 01/30/18 10:01 Intake & Output 01/29/18 01/30/18 01/31/18 06:59 06:59 06:59 Intake Total 2010 General appearance: PRESENT: no acute distress, cooperative, thin Head exam: PRESENT: atraumatic, normocephalic Eye exam: PRESENT: conjunctiva pink, EOMI, PERRLA. ABSENT: scleral icterus Ear exam: PRESENT: normal external ear exam Mouth exam: PRESENT: dry mucosa Neck exam: PRESENT: full ROM. ABSENT: carotid bruit, JVD, lymphadenopathy, thyromegaly Respiratory exam: PRESENT: clear to auscultation yajaira, unlabored Cardiovascular exam: PRESENT: tachycardia Pulses: PRESENT: normal dorsalis pedis pul, +2 pedal pulses bilateral Vascular exam: PRESENT: normal capillary refill GI/Abdominal exam: PRESENT: normal bowel sounds, soft. ABSENT: distended, guarding, mass, organolmegaly, rebound, tenderness Rectal exam: PRESENT: deferred Extremities exam: PRESENT: full ROM Musculoskeletal exam: PRESENT: ambulatory Neurological exam: PRESENT: alert, awake, oriented to person, oriented to place , oriented to time, oriented to situation, CN II-XII grossly intact. ABSENT: motor sensory deficit Psychiatric exam: PRESENT: appropriate affect, normal mood. ABSENT: homicidal ideation, suicidal ideation Skin exam: PRESENT: dry, intact, warm. ABSENT: cyanosis, rash Results Laboratory Results: 01/30/18 01/30/18 01/30/18 04:36 06:45 10:00 Carbonic Acid 0.59 L HCO3/H2CO3 Ratio 18:1 ABG pH 7.37 ABG pCO2 19.7 L* ABG pO2 137.6 H ABG HCO3 11.0 L ABG O2 Saturation 98.7 H ABG Base Excess -12.0 VBG pH 7.29 L VBG pCO2 36.1 VBG HCO3 16.9 L VBG Base Excess -8.8 FiO2 ROOM AIR Sodium 142.8 Potassium 5.0 Chloride 103 Carbon Dioxide 7 L* Anion Gap 33 H BUN 12 Creatinine 0.80 Est GFR ( Amer) > 60 Est GFR (Non-Af Amer) > 60 Glucose 544 H* Calcium 10.3 H Assessment & Plan - Diagnosis (1) DKA (diabetic ketoacidoses) Qualifiers: Diabetes mellitus type: type 1 Diabetes mellitus complication detail: without coma Qualified Code(s): E10.10 - Type 1 diabetes mellitus with ketoacidosis without coma Is this a current diagnosis for this admission?: Yes Plan: Plan we will await further results from today's labs will continue on an insulin drip to she reaches to 50 then will discontinue and start her Lantus with Accu-Cheks and sliding scales. We will continue antiemetics and IV hydration. (2) Neuropathy Is this a current diagnosis for this admission?: Yes Plan: We will resume her gabapentin if it has not been started yet. - Time Time Spent with patient: 15-24 minutes Medications reviewed and adjusted accordingly: Yes Anticipated discharge: Home Within: within 48 hours - Inpatient Certification I certify that my determination is in accordance with my understanding of Medicare's requirements for reasonable and necessary INPATIENT services [42 CFR 412.3e].: Yes Medical Necessity: Need Close Monitoring Due to Risk of Patient Decompensation, Need For IV Fluids Post Hospital Care: D/C Chef Concierge Documentation
[2018-01-30] MEDS: INSULIN LISPRO 100 UNIT/ML 3 ML VIAL SUBCUT SCH ×2 (11:56→17:53)
[2018-01-30] MEDS ORDERED: INSULIN REG, HUMAN 100 UNIT/ML 3 ML VIAL (PYX) SUBCUT ONE (12:30)
[2018-01-30] MEDS: GABAPENTIN 300 MG CAPSULE PO SCH ×2 (13:07→22:06)
[2018-01-30 15:10] LABS: VENOUS BLOOD BASE EXCESS 6.2 mmol/L; VENOUS BLOOD HCO3 29.5 mmol/L (20-32); VENOUS BLOOD PCO2 37.5 mmHg (35-63); VENOUS BLOOD PH 7.51 (7.30-7.42)
[2018-01-30 16:52] LABS: ANION GAP 11 (5-19); BLOOD UREA NITROGEN 8 mg/dL (7-20); CALCIUM 9.3 mg/dL (8.4-10.2); CHLORIDE 95 mmol/L (98-107); GLUCOSE 134 mg/dL (75-110); SODIUM 140.3 mmol/L (137-145)
[2018-01-30 17:09] LABS: CARBON DIOXIDE 34 mmol/L (22-30); POTASSIUM 3.3 mmol/L (3.6-5.0)
[2018-01-30] MEDS: INSULIN GLARGINE,HUM.REC.ANLOG 300 UNIT/3 ML INSULN.PEN SUBCUT SCH (17:54)
[2018-01-30 20:25] LABS: VENOUS BLOOD BASE EXCESS 8.2 mmol/L; VENOUS BLOOD HCO3 32.3 mmol/L (20-32); VENOUS BLOOD PCO2 43.1 mmHg (35-63); VENOUS BLOOD PH 7.49 (7.30-7.42)
[2018-01-30 20:46] LABS: ANION GAP 9 (5-19); BLOOD UREA NITROGEN 7 mg/dL (7-20); CALCIUM 8.9 mg/dL (8.4-10.2); CARBON DIOXIDE 36 mmol/L (22-30); CHLORIDE 92 mmol/L (98-107); GLUCOSE 110 mg/dL (75-110); SODIUM 137.2 mmol/L (137-145)
[2018-01-30 20:59] LABS: POTASSIUM 2.8 mmol/L (3.6-5.0)
[2018-01-30] MEDS: NORMAL SALINE 1000 ML 1,000 ML IV PRN (22:07)
[2018-01-30] MEDS ORDERED: POTASSIUM CHLORIDE 20 MEQ/50 ML RTU IV ONE (22:30)
[2018-01-31 02:30] LABS: ANION GAP 9 (5-19); BLOOD UREA NITROGEN 5 mg/dL (7-20); CALCIUM 8.8 mg/dL (8.4-10.2); CARBON DIOXIDE 34 mmol/L (22-30); CHLORIDE 97 mmol/L (98-107); GLUCOSE 117 mg/dL (75-110); POTASSIUM 3.1 mmol/L (3.6-5.0); SODIUM 140.4 mmol/L (137-145)
[2018-01-31] MEDS: GABAPENTIN 300 MG CAPSULE PO SCH ×2 (05:52→14:11)
[2018-01-31] MEDS: NORMAL SALINE 1000 ML 1,000 ML IV PRN (06:29)
[2018-01-31 06:53] LABS: VENOUS BLOOD BASE EXCESS 6.5 mmol/L; VENOUS BLOOD HCO3 32.1 mmol/L (20-32); VENOUS BLOOD PH 7.42 (7.30-7.42)
[2018-01-31] MEDS: INSULIN LISPRO 100 UNIT/ML 3 ML VIAL SUBCUT SCH ×3 (08:32→19:30)
[2018-01-31] MEDS: PANTOPRAZOLE SODIUM 40 MG VIAL IV SCH (09:54)
[2018-01-31] MEDS: INSULIN GLARGINE,HUM.REC.ANLOG 300 UNIT/3 ML INSULN.PEN SUBCUT SCH ×2 (09:58→17:57)
[2018-01-31] MEDS ORDERED: DULOXETINE HCL 30 MG CAPSULE.DR PO SCH (10:00)
[2018-01-31] MEDS: ENOXAPARIN SODIUM INJ 40 MG/0.4 ML DISP.SYRIN SUBCUT SCH (10:32)
[2018-01-31] MEDS ORDERED: POTASSIUM CHLORIDE 10 MEQ CAPSULE.ER PO ONE (11:00)
[2018-01-31 15:35] LABS: ANION GAP 8 (5-19); BLOOD UREA NITROGEN 4 mg/dL (7-20); CALCIUM 8.8 mg/dL (8.4-10.2); CARBON DIOXIDE 31 mmol/L (22-30); CHLORIDE 104 mmol/L (98-107); GLUCOSE 75 mg/dL (75-110); POTASSIUM 3.8 mmol/L (3.6-5.0); SODIUM 142.7 mmol/L (137-145)
--- NOTE | 2018-01-31 17:59 | PDOC DISCHARGE SUMMARY ---
General - Admit/Disc Date/PCP Admission Date/Primary Care Provider: 01/30/18 02:19 WASHINGTON COOMBS MD Discharge Date: 01/31/18 - Discharge Diagnosis (1) DKA (diabetic ketoacidoses) Is this a current diagnosis for this admission?: Yes - Additional Information Prescriptions: Duloxetine HCl [Cymbalta 30 mg Capsule.] 30 mg PO DAILY #30 capsule. Insulin GlargineHum.rec.anlog [Lantus Insulin 100 Unit/mL] 35 units SUBCUT Q12 #5 insuln.pen Insulin Lispro [Humalog Kwikpen U-100] 6 units SUBCUT TID #3 insuln.pen Home Medications: Gabapentin [Neurontin 300 mg Capsule] 300 mg PO Q6 01/30/18 Lisinopril [Prinivil 2.5 mg Tablet] 2.5 mg PO DAILY 01/30/18 Potassium Chloride [Klor-Con 10] 20 meq PO DAILY 01/30/18 Acetaminophen [Tylenol 325 mg Tablet] 650 mg PO Q4HP PRN tablet 01/31/18 Duloxetine HCl [Cymbalta 30 mg Capsule.] 30 mg PO DAILY #30 capsule. Insulin GlargineHum.rec.anlog [Lantus Insulin 100 Unit/mL] 35 units SUBCUT Q12 #5 insuln.pen 01/31/18 Insulin Lispro [Humalog Kwikpen U-100] 6 units SUBCUT TID #3 insuln.pen History of Present Illness History of Present Illness: DAVID MARTINEZ is a 23 year old female who presents with concern that she is in DKA. She says for last 24 hours she has had a lot of vomiting and has felt unwell her blood sugars have run high. She says been using her insulin however her sugars continue on high and she continued to have vomiting. She denies any pain other than some mild abdominal cramping. No recent fevers or infections. No chest pain. No other complaints at this time. She has been in DKA before and says this feels very similar. She denies any recent changes in her insulin regimen. Blood sugar in the emergency department was 466 with a potassium of 5.3,vbg 7.25 /21, bicarb 9.3 Hospital Course Hospital Course: Ms. Martinez is a 23-year-old female with a past medical history of insulin- dependent diabetes mellitus, diabetic gastroparesis and diabetic neuropathy who was initially admitted for DKA. She was initially given IV fluids and was started on insulin drip. Patient was eventually transitioned to long-acting insulin. Patient's DKA has since resolved. Assumed care today. Patient did state that although she has been taking her insulin regimen at home, she does not check her sugars regularly and hence her regimen has not been adjusted or titrated appropriately. Patient's hemoglobin A1c did came back elevated at 10.7. At home she takes Lantus 20 units every 12. Her sugars have been well controlled here with 35 units of Lantus every 12 and Humalog 6 units 3 times daily pre-meals. Patient did complain that she has chronic bilateral leg pain from neuropathy. She says she gets minimal relief from Neurontin. Discussed adding Cymbalta and patient is amenable to starting Cymbalta and see if this will help with her neuropathic pain. Patient's recent BMP have been normal and her electrolytes have been also normal. She will be sent home on Lantus 35 units twice daily and Humalog 6 units 3 times daily pre-meals. She was strongly advised to regularly check her sugars at least 2 times a day and to continue follow-up with her PCP. She did state that there was a plan to refer her to aquatics manager. Patient was on a insulin pump before but she said this was discontinued because she did not like it after she was bullied a few years back while being on insulin pump. Discussed again that she may benefit from being placed back on insulin pump. Patient says that she will discuss this with her PCP and aquatics manager. Physical Exam Vital Signs: Temp Pulse Resp BP Pulse Ox 97.7 F 98 16 123/93 H 100 01/31/18 16:15 01/31/18 16:15 01/31/18 16:15 01/31/18 16:15 01/31/18 16:15 Intake & Output 01/30/18 01/31/18 02/01/18 06:59 06:59 06:59 Intake Total 2010 3050 1237 Output Total 1000 500 Balance 2010 2049 737 Weight 101 lb 13.657 oz General appearance: PRESENT: no acute distress, well-developed, well-nourished Head exam: PRESENT: atraumatic, normocephalic Eye exam: PRESENT: conjunctiva pink, EOMI, PERRLA. ABSENT: scleral icterus Ear exam: PRESENT: normal external ear exam Mouth exam: PRESENT: moist, tongue midline Neck exam: ABSENT: carotid bruit, JVD, lymphadenopathy, thyromegaly Respiratory exam: PRESENT: clear to auscultation yajaira. ABSENT: rales, rhonchi, wheezes Cardiovascular exam: PRESENT: RRR. ABSENT: diastolic murmur, rubs, systolic murmur GI/Abdominal exam: PRESENT: normal bowel sounds, soft. ABSENT: distended, guarding, mass, organolmegaly, rebound, tenderness Rectal exam: PRESENT: deferred Neurological exam: PRESENT: alert, awake, oriented to person, oriented to place , oriented to time, oriented to situation, CN II-XII grossly intact. ABSENT: motor sensory deficit Results Laboratory Results: 01/31/18 14:46 01/30/18 01/30/18 01/31/18 20:15 20:15 01:59 VBG pH 7.49 H VBG pCO2 43.1 VBG HCO3 32.3 H VBG Base Excess 8.2 Sodium 137.2 140.4 Potassium 2.8 L* 3.1 L Chloride 92 L 97 L Carbon Dioxide 36 H 34 H Anion Gap 9 9 BUN 7 5 L Creatinine 0.43 L 0.37 L Est GFR ( Amer) > 60 > 60 Est GFR (Non-Af Amer) > 60 > 60 Glucose 110 117 H Calcium 8.9 8.8 Serum HCG, Qual 01/31/18 01/31/18 01/31/18 06:44 14:46 14:46 VBG pH 7.42 VBG pCO2 51.0 VBG HCO3 32.1 H VBG Base Excess 6.5 Sodium 142.7 Potassium 3.8 Chloride 104 Carbon Dioxide 31 H Anion Gap 8 BUN 4 L Creatinine 0.45 L Est GFR ( Amer) > 60 Est GFR (Non-Af Amer) > 60 Glucose 75 Calcium 8.8 Serum HCG, Qual NEGATIVE Qualifiers - * PATIENT BEING DISCHARGED WITH ANY OF THE FOLLOWING DIAGNOSIS: No
[2018-01-31 18:15] VITALS: BP 127/70
== END 2018-01-31 20:03 | disposition home or self-care (01) | DRG 639 ==
LOC: ER 22:46 → EH 01-30 02:19 → 3W 01-30 12:20
PROVIDERS: ADMIT Internal Medicine; ATTEND Internal Medicine
DX: E10.10 Type 1 diabetes mellitus with ketoacidosis without coma (principal); E10.40 Type 1 diabetes mellitus with diabetic neuropathy, unspecified; F32.9 Major depressive disorder, single episode, unspecified; Z79.4 Long term (current) use of insulin
CPT/HCPCS: 36415; 80048; 80053; 81001; 82803; 82962; 83036; 84703; 85025; 93005; 93010; 96374; 99291; J1650; J1815; J2405; J3480; J3490; J7060; S0164